=== PATIENT | male | born 1950 | race Caucasian/White ===

== ENCOUNTER 2019-10-26 07:52 | Outpatient (RCR) | payer MEDICARE, OTHER, SELFPAY ==
--- NOTE | 2019-08-24 09:42 | P.PNWOUND_ITS ---
Wound Care Note Date/Time: 08/24/19 09:42 History: [facility] wound clinic evaluations for left lateral ankle ulcer. Wound approximation: Yes Wound width: 0.8cm Wound length: 1.0cm Wound depth: 0.2cm Drainage: Scant serous Surrounding tissue appearance: No redness/warmth/swelling. No signs of active infection Tunneling: No Percentage granulation tissue: 100% red/pink wound bed Treatment/Procedures: Amnioexcel grafting Dressings: Amnioexcel graft applied. Tissue ID: [id number] Size: 1.5cmx1.5cm Product ID: [id number] Expiration Date: 05/05/2024 Xtrasorb placed. Covered dry. Assessment and Plan Assessment and plan (1) Skin ulcer of ankle, limited to breakdown of skin: Qualifiers: Laterality: left Qualified Code(s): L97.321 - Non-pressure chronic ulcer of left ankle limited to breakdown of skin Code(s): L97.301 - Non-pressure chronic ulcer of unspecified ankle limited to breakdown of skin Status: Acute Assessment and Plan: [facility] wound clinic evaluation for left lateral ankle ulcer. Ulcer with continued improvement in dimensions in granulation with Amnioexcel grafting and daily silver gel. Recommended repeat graft application today. Do not change dressing x72 hours. Then begin silver gel and cover dry. Pressure offloading with foam over wound in shoes. Follow up in 1 week for reassessment. Will begin tracy or Endoform at that time if wound is not closed.
--- NOTE | 2019-08-31 08:06 | PCWOUND ---
wocn note patient cancelled due to still out of town.
--- NOTE | 2019-09-07 09:30 | WPDWOUNDNOTE ---
Wound Care Note Date/Time: 09/07/19 09:30 [facility] wound clinic evaluations for left lateral ankle ulcer. Wound approximation: Yes Wound width: 0.6cm Wound length: 0.9 cm Wound depth: 0.2 cm Drainage: Scant serous Surrounding tissue appearance: No redness/warmth/swelling. No signs of active infection Tunneling: No Percentage granulation tissue: 100% red/pink wound bed Begin silver gel, tracy, foam, cover dry. Assessment and Plan Assessment and plan (1) Skin ulcer of ankle, limited to breakdown of skin: Qualifiers: Laterality: left Qualified Code(s): L97.321 - Non-pressure chronic ulcer of left ankle limited to breakdown of skin Code(s): L97.301 - Non-pressure chronic ulcer of unspecified ankle limited to breakdown of skin Status: Acute Assessment and Plan: [facility] wound clinic evaluation for left lateral ankle ulcer. Ulcer with continued improvement in dimensions and granulation with Amnioexcel grafting and daily silver gel. He has completed 05/20 grafts. Recommended beginning silver gel and tracy daily, cover with foam. Follow up in 2 weeks for reassessment. Exam Const Constitutional General: healthy appearing; No in distress or confused Orientation/consciousness: oriented to person, oriented to place, oriented to time and No confused HENNH Head: normal to inspection, normocephalic and atraumatic Eyes Conjunctivae: Yes conjunctivae normal Sclera: sclerae normal Neck Neck: Yes supple and No tender Resp Effort & Inspection: normal respiratory effort and no audible wheezes Cardio Rate: Yes regular rate Rhythm: regular rhythm Skin General skin exam: no rashes or lesions noted Neuro General: Yes oriented to person, Yes oriented to place, Yes oriented to time and No confusion Extrem Right upper extremity: normal to inspection Left upper extremity: normal to inspection Other: Left ankle ulcer clean/dry. No drainage. Dimensions today measures 0.9x0.6x0.2cm, 100% red/pink wound bed.. Good granulation tissue over 95% of wound bed. Minimal depth. No signs of infection. Psych Affect: Yes normal affect Review of Systems Const Reports no additional constitutional complaints Eyes Reports no additional eye complaints ENT Reports system reviewed and no additional complaints, except as documented Card Reports no additional cardiovascular complaints Resp Reports no additional respiratory complaints GI Reports no additional gastrointestinal complaints Reports no additional male genitourinary complaints Musc Reports no additional musculoskeletal complaints Skin/Breast Reports system reviewed and no additional complaints, except as docu Neuro Reports system reviewed and no additional complaints, except as documented Psych Reports no additional psychiatric complaints Endo Reports no additional endocrine complaints Calos/Lymph Reports no additional hematologic/lymphatic complaints Aller/Immun Reports no additional allergic/immunologic complaints
--- NOTE | 2019-09-28 09:07 | P.PNWOUND_ITS ---
Wound Care Note Date/Time: 09/28/19 09:07 [facility] wound clinic evaluations for left lateral ankle ulcer. Wound approximation: Yes Two small areas of open ulceration on the more proximal aspect of the wound which both measure 0.2x0.2x0.1cm, 100% red/pink wound bed. NEW blister on ankle which measures 0.6x0.6x0.2cm, 100% red/pink wound bed, no signs of infection. Drainage: Scant serous Surrounding tissue appearance: No redness/warmth/swelling. No signs of active infection Tunneling: No Percentage granulation tissue: 100% red/pink wound bed Begin silver gel, tracy, foam, cover dry. Assessment and Plan Assessment and plan (1) Skin ulcer of ankle, limited to breakdown of skin: Qualifiers: Laterality: left Qualified Code(s): L97.321 - Non-pressure chronic u lcer of left ankle limited to breakdown of skin Code(s): L97.301 - Non-pressure chronic ulcer of unspecified ankle limited to breakdown of skin Status: Acute Assessment and Plan: [facility] wound clinic evaluation for left lateral ankle ulcer. Ulcer with continued improvement in dimensions and granulation with daily silver gel and tracy. Plan to return to use of Regranex- refill requested. Follow up in 4 weeks for reassessment. Exam Const Constitutional General: healthy appearing; No in distress or confused Orientation/consciousness: oriented to person, oriented to place, oriented to time and No confused HENMD Head: normal to inspection, normocephalic and atraumatic Eyes Conjunctivae: Yes conjunctivae normal Sclera: sclerae normal Neck Neck: Yes supple and No tender Resp Effort & Inspection: normal respiratory effort and no audible wheezes Cardio Rate: Yes regular rate Rhythm: regular rhythm Skin General skin exam: no rashes or lesions noted Neuro General: Yes oriented to person, Yes oriented to place, Yes oriented to time and No confusion Extrem Right upper extremity: normal to inspection Left upper extremity: normal to inspection Other: Left ankle ulcer clean/dry. No drainage. Wound today with two small open ulcerations measuring 0.2x0.2x0.1cm, 100% red/pink wound bed. Good granulation tissue over 95% of wound bed. Minimal depth. No signs of infection. Psych Affect: Yes normal affect Review of Systems Const Reports no additional constitutional complaints Eyes Reports no additional eye complaints ENT Reports system reviewed and no additional complaints, except as documented Card Reports no additional cardiovascular complaints Resp Reports no additional respiratory complaints GI Reports no additional gastrointestinal complaints Reports no additional male genitourinary complaints Musc Reports no additional musculoskeletal complaints Skin/Breast Reports system reviewed and no additional complaints, except as docu Neuro Reports system reviewed and no additional complaints, except as documented Psych Reports no additional psychiatric complaints Endo Reports no additional endocrine complaints Calos/Lymph Reports no additional hematologic/lymphatic complaints Aller/Immun Reports no additional allergic/immunologic complaints
--- NOTE | 2019-10-26 10:02 | WPDWOUNDNOTE ---
Wound Care Note Date/Time: 10/26/19 10:02 [facility] wound clinic evaluations for left lateral ankle ulcer. Wound approximation: Yes Drainage: None Surrounding tissue appearance: No redness/warmth/swelling. No signs of active infection Tunneling: No Percentage granulation tissue: 100% healed patient returns for re-evaluation left lateral ankle ulcer. States wound has been closed for several days. Not putting anything on it. Denies any fever, chills or other complaints. Assessment and Plan Assessment and plan (1) Skin ulcer of ankle, limited to breakdown of skin: Qualifiers: Laterality: left Qualified Code(s): L97.321 - Non-pressure chronic ulcer of left ankle limited to breakdown of skin Code(s): L97.301 - Non-pressure chronic ulcer of unspecified ankle limited to breakdown of skin Status: Acute Assessment and Plan: Updated history, physical exam reviewed with the patient. Interval changes reviewed. Discussed the condition, nature, etiology and course of natural history with the patient. Treatment options including surgical and nonoperative treatment were reviewed. Risks and benefits of each as well as alternatives reviewed. The patient's questions were answered. Conservative treatment: compression and elevation. Wound healed at this time. Discussed risk of recurrence. Continue to monitor and work on edema with elevation and compression stockings. If new wound or recurrence notify office or wound clinic immediately. Patient verbalized understanding.
--- NOTE | 2019-10-26 10:14 | WPDWOUNDNOTE ---
Wound Care Note Date/Time: 10/26/19 10:14 Review of Systems Const Denies fever(s) Eyes Denies blurry vision ENT Denies bleeding gums or neck pain Card Denies chest pain Resp Denies wheezing GI Denies abdominal pain No urinary urgency Musc Reports as per HPI Skin Reports as per HPI Neuro Denies behavioral changes or numbness Psych Denies irritability or mood changes Endo Denies polyuria Calos/Lymph Denies easy bleeding Aller/Immun Denies seasonal allergies
== END 2019-11-12 12:30 | disposition home or self-care (01) ==
LOC: ANHWOC 07:52
PROVIDERS: Referring Provider Nurse Practitioner Family; Visit Provider Orthopaedic Surgery
DX: I87.8 Other specified disorders of veins (principal); L97.319 Non-pressure chronic ulcer of right ankle with unspecified severity; L97.329 Non-pressure chronic ulcer of left ankle with unspecified severity
CPT/HCPCS: 15275; 99212; G0463; Q4137

== ENCOUNTER 2020-09-23 00:44 | Outpatient (CLI) | payer MEDICARE, OTHER, SELFPAY ==
[2020-09-23 20:15] LABS: SARS-CoV-2 RNA PCR Negative
== END 2020-09-23 00:45 | disposition home or self-care (01) ==
LOC: ANHCOVIDDT 00:45
PROVIDERS: Visit Provider Internal Medicine Gastroenterology
DX: Z01.812 Encounter for preprocedural laboratory examination (principal); Z20.828 Contact with and (suspected) exposure to other viral communicable diseases
CPT/HCPCS: 87635; C9803; U0003

== ENCOUNTER 2020-09-27 00:18 | Day surgery (SDC) | payer MEDICARE, OTHER, SELFPAY ==
[2020-09-21 14:56] VITALS: BMI 31.4
[2020-09-27 06:47] VITALS: BP 118/57; PULSE 64; RESP 18; TEMP 36.5; O2SAT 98
[2020-09-27] MEDS: LACTATED RINGERS 1,000 ML 150 ML IV CONT (06:50)
--- NOTE | 2020-09-27 08:09 | WPDGICN ---
Assessment and Plan Assessment and plan (1) Encounter for screening colonoscopy: Code(s): Z12.11 - Encounter for screening for malignant neoplasm of colon Status: Acute Assessment and Plan: Patient presents today for screening colonoscopy. High-fiber diet is advised. Colonoscopy will be performed possibly further recommendations subsequently. GI Consult Note Consult date/time: 09/27/20 08:09 HPI: Lee Morris is a 70 year old male Presents for neoplasia screening. Patient has normal weight appetite bowel movements. He denies abdominal pain. He denies bleeding. His family history is noncontributory. Patient presents today for colonoscopy. Review of Systems Review of Systems: All systems reviewed & are unremarkable except as noted in HPI and below PMFSH Past Medical History Medical History (Updated 09/27/20 @ 08:11 by Vlad Mendes MD) H/O malignant neoplasm of thyroid Hyperlipidemia Hypertension Hypothyroid Skin ulcer of ankle, limited to breakdown of skin Social History Social History Smoking status: Never smoker Alcohol intake: current Substance use: never Substance use type: does not use Spiritual care concerns: No Meds Home Medications and Allergies Home Medications Medication Instructions Recorded Confirmed Type amlodipine 10 mg PO DAILY 08/06/19 09/21/20 History apixaban [Eliquis] 5 mg PO DAILY 08/06/19 09/27/20 History cholecalciferol (vitamin D3) 2,000 unit PO DAILY 08/06/19 09/21/20 History levothyroxine 137 mcg PO DAILY 08/06/19 09/21/20 History losartan 100 mg PO DAILY 08/06/19 09/21/20 History metoprolol succinate 50 mg PO DAILY 08/06/19 09/21/20 History pravastatin 40 mg PO DAILY 08/06/19 09/21/20 History spironolactone 50 mg PO DAILY 08/06/19 09/21/20 History ibktvpdo-qbi-befkg-vit K-lycop 1 tablet PO DAILY 09/21/20 09/21/20 History [One-A-Day Men's 50 Plus] Allergies Allergy/AdvReac Type Severity Reaction Status Date / Time diazepam Allergy Intermediate Itching Verified 09/27/20 06:45 propoxyphene Allergy Intermediate Swelling Verified 09/27/20 06:45 Vital Signs Vital Signs - 24 hr 09/27/20 06:47 Temperature 97.7 F Pulse Rate 64 Respiratory Rate 18 Blood Pressure 118/57 L Pulse Oximetry 98 Exam Narrative: Exam Narrative: Physical exam reveals patient to be alert. Vital signs stable. HEENT exam is unremarkable. Lungs are clear to auscultation and percussion. Heart is without murmur or extra sounds. Abdominal exam bowel sounds are present soft nontender with no organomegaly. Digital external rectal exam is normal.
[2020-09-27 08:37] VITALS: BP 102/68; PULSE 55; RESP 23; O2SAT 95
[2020-09-27 08:47] VITALS: BP 110/68; PULSE 52; RESP 18; O2SAT 95
[2020-09-27 08:57] VITALS: BP 124/75; PULSE 52; RESP 19; O2SAT 99
== END 2020-09-27 09:09 | disposition home or self-care (01) ==
PROVIDERS: Visit Provider Internal Medicine Gastroenterology
PROC: 0DJD8ZZ Inspection of Lower Intestinal Tract, Via Natural or Artificial Opening Endoscopic (ICD-10-PCS; CPT 45378; principal; 2020-09-27 08:00)
DX: Z12.11 Encounter for screening for malignant neoplasm of colon (principal); K57.30 Diverticulosis of large intestine without perforation or abscess without bleeding; K64.8 Other hemorrhoids; Z85.850 Personal history of malignant neoplasm of thyroid; E78.5 Hyperlipidemia, unspecified; I10 Essential (primary) hypertension; E89.0 Postprocedural hypothyroidism
CPT/HCPCS: G0121; J2704; J7120

== ENCOUNTER 2021-05-11 22:24 | Emergency (ER) | payer MEDICARE, OTHER, SELFPAY ==
--- NOTE | ~2021-05-11 | CT_ITS ---
EXAMINATION: CT pelvis wo con DATE: 05/11/2021 23:08 INDICATION: Acute onset left hip pain TECHNIQUE: Computed tomography (CT) of the pelvis was performed without intravenous contrast. The dos e-length product (DLP) was 441.75 mGy-cm. Automated exposure control and iterative reconstruction cindy hnique were employed. COMPARISON: None FINDINGS: There is mild osteoarthritis of the hips. No fracture is identified. There are bilateral L5 pars defects with grade 1 anterolisthesis of L5 on S1. Calcified atherosclerosis is noted. The appen sarah is normal. There is partial fusion of the sacroiliac joints. There is a 2.2 x 1.9 cm lytic lesion of the left iliac wing which extends into the adjacent soft tissues. IMPRESSION: 1. Mild osteoarthritis of the hips without acute findings. 2. Lytic lesion of the left iliac wing. CT-guided biopsy is recommended. Reviewed, dictated and finalized at location A.
[2021-05-11 22:38] VITALS: BP 108/67; PULSE 66; RESP 16; TEMP 36.6; O2SAT 96
--- NOTE | 2021-05-11 22:52 | ED.GENADULT ---
HPI - General Adult General Chief complaint: Unspecified Stated complaint: left hip pain Time Seen by Provider: 05/11/21 22:40 Source: patient Mode of arrival: ambulatory Limitations: no limitations History of Present Illness MD complaint: sudden left hip pain x this PM. no acute injury. prior similar left hip Onset (ago): hour(s) (6) Location: left and lower extremity Severity: moderate Severity scale (1-10): 8 Quality: aching and dull Pain Consistency: constant Relieving factors: immobilization and rest Exacerbating factors: movement Associated symptoms: denies other symptoms Treatments prior to arrival: none Related Data Home Medications Medication Instructions Recorded Confirmed calcium carbonate [Tums] 200 mg PO QID 05/11/21 05/11/21 chlorthalidone 25 mg PO DAILY 05/11/21 05/11/21 levothyroxine [Synthroid] 137 mcg PO DAILY 05/11/21 05/11/21 losartan 100 mg PO DAILY 05/11/21 05/11/21 metoprolol succinate 50 mg PO DAILY 05/11/21 05/11/21 pravastatin [Pravachol] 40 mg PO DAILY 05/11/21 05/11/21 spironolactone [Aldactone] 50 mg PO DAILY 05/11/21 05/11/21 Allergies Allergy/AdvReac Type Severity Reaction Status Date / Time No Known Allergies Allergy Verified 02/21/20 12:41 Review of Systems Review of Systems: All systems reviewed & are unremarkable except as noted in HPI and below Constitutional: Constitutional: Reports as per HPI and Reports no additional constitutional complaints Eyes: Eyes: Reports as per HPI and Reports no additional eye complaints ENT: Reports system reviewed and no additional complaints, except as documented and Reports as per HPI Cardiovascular: Cardiovascular: Reports as per HPI and Reports no additional cardiovascular complaints Respiratory: Respiratory: Reports as per HPI and Reports no additional respiratory complaints Gastrointestinal: Gastrointestinal: Reports as per HPI and Reports no additional gastrointestinal complaints Genitourinary: Genitourinary: Reports no additional male genitourinary complaints and Reports as per HPI Musculoskeletal: Musculoskeletal: Reports no additional musculoskeletal complaints, Reports as per HPI, Denies back pain and Reports arthralgias Integumentary/Breasts: Skin/Breast: Reports system reviewed and no additional complaints, except as docu and Reports as per HPI Neurologic: Reports system reviewed and no additional complaints, except as documented and Reports as per HPI Psychiatric: Psychiatric: Reports no additional psychiatric complaints and Reports as per HPI Endocrine: Endocrine: Reports no additional endocrine complaints and Reports as per HPI Hematologic/Lymphatic: Hematologic/Lymphatic: Reports no additional hematologic/lymphatic complaints and Reports as per HPI Allergic/Immunologic: Allergic/Immunologic: Reports no additional allergic/immunologic complaints and Reports as per HPI PMFSH Past Medical History Medical History Adhesive capsulitis Arthritis Back pain with history of spinal surgery DJD of shoulder DVT (deep venous thrombosis) Irregular heartbeat Left shoulder pain Lung nodule Vision abnormalities Surgical History Surgical History History of thyroidectomy Social History Social History Smoking status: Never smoker Alcohol intake: current Gender identity (if verbalized by the patient): Male Exam Const: General: cooperative, healthy appearing, no acute distress and well developed Nutritional Appearance: well nourished Orientation/consciousness: oriented to person, oriented to place, oriented to time and patient oriented x3 Limitations: no limitations HENMT: Head: normal to inspection, normocephalic and atraumatic Ears: hearing grossly normal bilaterally, external ears normal, TM normal on the right and TM normal on the left General nose
[2021-05-11] MEDS: KETOROLAC (*BKC) 60 MG/2 ML VIAL IM (23:00)
[2021-05-11] MEDS: MORPHINE SULFATE (*CRX) 4 MG/ML INJ IM (23:10)
[2021-05-11] MEDS: ONDANSETRON HCL ODT 4 MG TABLET PO (23:15)
[2021-05-11 23:51] VITALS: BP 110/70; PULSE 70; RESP 18; TEMP 36.6; O2SAT 95
== END 2021-05-12 00:08 | disposition home or self-care (01) ==
PROVIDERS: Emergency Provider Emergency Medicine
DX: M25.552 Pain in left hip (principal)
CPT/HCPCS: 72192; 96372; 99283; 99284; A9270; J1885; J2270

== ENCOUNTER 2021-06-26 10:25 | Inpatient (IN) | payer MEDICARE, OTHER, SELFPAY ==
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
--- NOTE | ~2021-06-26 | XR_ITS ---
EXAMINATION: XR ankle LT min 3V, XR foot LT min 3V DATE: 06/26/2021 11:32 INDICATION: EXAMINATION: XR ankle LT min 3V, XR foot LT min 3V DATE: 06/26/2021 11:32 INDICATION: Infection at the left foot and ankle TECHNIQUE: 1. Anteroposterior, mortise, additional oblique and lateral view of the left ankle were obtained. 2. Dorsoplantar, two oblique and lateral views of the left foot were obtained. COMPARISON: None. FINDINGS: Numerous small foci of metallic shrapnel scattered throughout the soft tissues of the left foot, ankl e and distal lower leg. Old healed distal left fibular diaphyseal fracture in essentially anatomic al ignment. No acute fractures identified. Normal alignment at the left foot and ankle. Moderate polyart icular osteoarthritis at the left ankle and multiple joints throughout the left foot most prominent i n the midfoot. No lesion suspicious for osteomyelitis identified. Small enthesopathic ossicle at the distal Achilles tendon. No left ankle joint effusion. IMPRESSION: 1. 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 No acute oss eous abnormality. 2. Numerous scattered foci of metallic shrapnel throughout the left foot, ankle and distal lower leg. Correlate with clinical history. Reviewed, dictated and finalized at location A. IMPRESSION: 1. Moderate midfoot predominant polyarticular osteoarthritis at the left foot a nd ankle. No acute osseous abnormality. 2. Numerous scattered foci of metallic shrapnel throughout the left foot, ankle and distal lower leg. Correlate with clinical history.
--- NOTE | ~2021-06-26 | US_ITS ---
EXAMINATION: US arterial ankle brachial ind DATE: 06/26/2021 12:36 INDICATION: Arterial occlusive disease to the bilateral lower limbs TECHNIQUE: Segmental pressures and plethysmographic and Doppler waveforms of the brachial and lower e xtremity arteries were obtained. COMPARISON: None. FINDINGS: Right and left brachial artery pressures of 112 mm Hg and 111 mm Hg, respectively, are concordant (no rmal difference <= 30 mmHg). The right ankle-brachial index (GREGG) is 1.57 (normal >= 0.9-1.0). The right great toe-brachial index (TBI) is 1.74 (normal >= 0.65). Arterial Doppler waveforms are triphasic at the right posterior tibia l and biphasic at the right dorsalis pedis artery, both with brisk systolic upstrokes.. The left GREGG is 1.38. The left TBI is 0.98. Arterial Doppler waveforms are biphasic with brisk systol ic upstrokes at both the left posterior tibial and dorsalis pedis arteries. IMPRESSION: 1. No significant arterial occlusive disease with normal bilateral ABIs and TBIs. Reviewed, dictated and finalized at location A. IMPRESSION: 1. No significant arterial occlusive disease with normal bilateral ABIs and TBI s.
[2021-06-26 09:20] VITALS: BP 108/71; PULSE 56; RESP 16; TEMP 36.1; O2SAT 99
--- NOTE | 2021-06-26 09:52 | PC.NURSE ---
This patient, Lee Morris, was admitted to 3 [facility] Surg Room 319-01 on 06/27/21 @ 0920. Patient/family oriented to hospital policies and general routines including ID bracelet, bed and alarms, visiting hours, pain management, procedures, bathroom and other care routines, personal items, smoking policy, room service/diet, and visiting hours. Information on how to activate the Rapid Response Team has been discussed. Patient/Family are encouraged to report perceived risks to care and to ask questions if they do not understand what they are told or what they should do.
--- NOTE | 2021-06-26 11:01 | PM.CNOR ---
Assessment and Plan Assessment and plan (1) Neuropathic ulcer of ankle: Code(s): L97.309 - Non-pressure chronic ulcer of unspecified ankle with unspecified severity Status: Acute Assessment and Plan: Patient admitted to the floor from the outpatient wound clinic. Plan to start intravenous antibiotics. Orders for dressing changes given. Will need workup including radiographic studies and blood work. Treatment recommendations to follow based on the results. 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 Had been treated with chemotherapy previously. 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 History of Present Illness HPI Consult date: 06/26/21 Requesting physician: Corrine Dennison MD Consult reason: other Chief complaint: Infected Lt ankle ulcer Narrative: 71-year-old gentleman with direct admit from the [facility] outpatient wound clinic for infected left ankle ulcer. Patient previously known to the Orthopedic service and the wound clinic for same left ankle ulceration. Treated at that time with debridement and graft application. He did well. Two weeks ago noted opening of the wound. He was seen in the Wound Care started on dressing changes. This has become worse over the past 4 days. Now with increasing size, slough covering the wound and increased swelling and pain. Patient unable to bear weight on the heel. Pain around the hindfoot worse with movement or pressure. Review of Systems Constitutional: Constitutional: Reports as per HPI and Reports no additional constitutional complaints Eyes: Eyes: Reports as per HPI and Reports no additional eye complaints ENT: Reports system reviewed and no additional complaints, except as documented and Reports as per HPI Cardiovascular: Cardiovascular: Reports as per HPI and Reports no additional cardiovascular complaints Respiratory: Respiratory: Reports as per HPI and Reports no additional respiratory complaints Gastrointestinal: Gastrointestinal: Reports as per HPI and Reports no additional gastrointestinal complaints Genitourinary: Genitourinary: Reports no additional male genitourinary complaints and Reports as per HPI Musculoskeletal: Musculoskeletal: Reports no additional musculoskeletal complaints, Reports as per HPI, Denies back pain and Reports arthralgias Integumentary/Breasts: Skin/Breast: Reports system reviewed and no additional complaints, except as docu and Reports as per HPI Neurologic: Reports system reviewed and no additional complaints, except as documented and Reports as per HPI Psychiatric: Psychiatric: Reports no additional psychiatric complaints and Reports as per HPI Endocrine: Endocrine: Reports no additional endocrine complaints and Reports as per HPI Hematologic/Lymphatic: Hematologic/Lymphatic: Reports no additional hematologic/lymphatic complaints and Reports as per HPI Allergic/Immunologic: Allergic/Immunologic: Reports no additional allergic/immunologic complaints and Reports as per HPI PMFSH Past Medical History Medical History Adhesive capsulitis Arthritis Back pain with history of spinal surgery 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
--- NOTE | 2021-06-26 11:04 | ECG_ITS ---
Measurements Intervals [place] Rate: 55 P: 73 WI: 260 QRS: -5 QRSD: 97 T: -8 QT: 410 QTc: 395 Interpretive Statements SINUS BRADYCARDIA WITH FIRST DEGREE AV BLOCK NONSPECIFIC ST & T-WAVE ABNORMALITY- ANTERIOR LEADS BASELINE ARTIFACT- II, III, AVR, AVL, AVF ABNORMAL ECG Electronically Signed On 06-26-2021 11:38:10 CDT by Nate Lambert D.O.
[2021-06-26 11:35] LABS: Basophils Percent Auto 0.2 % (0.2-1.2); Eosinophils Absolute Auto 0.1 K/mm3 (0-0.3); Eosinophils Percent Auto 1.1 % (0-4.4); Hematocrit 33.9 % (42.0-52.0); Hemoglobin 10.9 g/dL (14.0-18.0); Immature Granulocyte Absolute 0.02 K/mm3 (0.00-0.031); Immature Granulocyte Percent A 0.4 % (0-0.5); Lymphocytes Absolute Auto 0.86 K/mm3 (0.9-3.2); Lymphocytes Percent Auto 15.7 % (18.3-44.2); Mean Corpuscular HGB Conc 32.2 g/dl (32-36); Mean Corpuscular Hemoglobin 31.7 pg (26-34); Mean Corpuscular Volume 98.5 fl (80-100); Mean Platelet Volume 9.5 fl (7.4-10.4); Monocytes Absolute Auto 0.4 K/mm3 (0.1-0.6); Monocytes Percent Auto 7.7 % (2.6-8.5); Neutrophils Absolute Auto 4.1 K/mm3 (1.3-6.7); Neutrophils Percent Auto 74.9 % (45.5-73.1); Platelet Count Result 206 k/mm3 (150-375); Red Blood Count 3.44 M/mm3 (4.6-6.20); Red Cell Distribution Width 17.5 % (11.5-14.5); White Blood Count 5.5 K/mm3 (4.5-10.0)
[2021-06-26 11:52] LABS: Alanine Aminotransferase 30 U/L (4-50); Albumin Level 4.1 g/dL (3.5-5.1); Alkaline Phosphatase 105 U/L (38-126); Anion Gap 9 mmol/L (8-16); Aspartate Amino Transferase 38 U/L (17-59); Bilirubin,Total 1.2 mg/dL (0.2-1.3); Blood Urea Nitrogen 24 mg/dL (9-20); CRP 5.4 mg/dL (<1.0); Calcium 8.4 mg/dL (8.4-10.2); Carbon Dioxide 28 mmol/L (22-30); Chloride 100 mmol/L (98-107); Estimated Glomerular Filt Rate 50; Glucose 121 mg/dL (65-110); Potassium 4.2 mmol/L (3.4-5.0); Sodium 137 mmol/L (137-145)
[2021-06-26 13:28] LABS: Erythrocyte Sedimentation Rate 71 mm/hr (0-20)
[2021-06-26 14:00] VITALS: BP 130/71; PULSE 58; RESP 16; TEMP 36.1; O2SAT 100
[2021-06-26 14:34] VITALS: BP 130/71; PULSE 58; O2SAT 100
--- NOTE | 2021-06-26 16:06 | PM.IMHP ---
H&P: HPI History of Present Illness Date/Time: 06/26/21 16:06 patient is 69-year-old male was seen by orthopedic surgeon in outpatient clinic with left ankle ulceration and patient had been treated with debridement and graft application however the wound was open and suggested patient will need surgical intervention, for this reason patient is admitted. patient will be seen by his orthopedic surgeon in the hospital and further recommendation to follow. 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 Vision abnormalities Surgical History Surgical History History of thyroidectomy Family History Family History (Updated 06/26/21 @ 11:48 by Keri Keys RN) Mother Diabetes mellitus Brain aneurysm Father Heart disease Social History Social History Smoking status: Never smoker Alcohol intake: never Substance use: never Substance use type: does not use Gender identity (if verbalized by the patient): Male Spiritual care concerns: No Meds Home Medications and Allergies Home Medications Medication Instructions Recorded Confirmed Type chlorthalidone 25 mg PO DAILY 05/11/21 06/26/21 History levothyroxine [Synthroid] 137 mcg PO DAILY 05/11/21 06/26/21 History losartan 100 mg PO DAILY 05/11/21 06/26/21 History metoprolol succinate 50 mg PO DAILY 05/11/21 06/26/21 History pravastatin [Pravachol] 40 mg PO DAILY 05/11/21 06/26/21 History apixaban [Eliquis] 10 mg PO DAILY 06/26/21 06/26/21 History cabozantinib 40 mg PO DAILY 06/26/21 06/26/21 History cholecalciferol (vitamin D3) 25 mcg PO DAILY 06/26/21 06/26/21 History [Vitamin D3] zwkxudlb-fzz-jmxth-vit K-lycop 1 tablet PO DAILY 06/26/21 06/26/21 History [One-A-Day Men's Multivitamin] Allergies Allergy/AdvReac Type Severity Reaction Status Date / Time No Known Allergies Allergy Verified 06/26/21 10:08 Vital Signs Vital Signs - 24 hr 06/26/21 09:20 06/26/21 14:00 06/26/21 14:34 Temperature 97.0 F L 97.0 F L Pulse Rate 56 L 58 L 58 L Respiratory Rate 16 16 Blood Pressure 108/71 130/71 130/71 Pulse Oximetry 99 100 100 Exam Narrative: Patient is comfortable, NAD HEENT: eyes are clear and none icteric LUNGS: normal respiratory effort ABD: not distended Lower extremities: no edema, left ankle lateral aspect with wound dressed SKIN: nonjaundiced Neuro: grossly intact. H&P: Results Labs Labs: Short CBC 06/26/21 Range/Units 11:11 WBC 5.5 (4.5-10.0) K/mm3 Hgb 10.9 L (14.0-18.0) g/dL Hct 33.9 L (42.0-52.0) % Plt Count 206 (150-375) k/mm3 BMP 06/26/21 11:20 Sodium 137 Potassium 4.2 Chloride 100 Carbon Dioxide 28 BUN 24 H Creatinine 1.40 H Glucose 121 H Calcium 8.4 Liver Function 06/26/21 Range/Units 11:20 Total Bilirubin 1.2 (0.2-1.3) mg/dL AST 38 (17-59) U/L ALT 30 (4-50) U/L Alkaline Phosphatase 105 (38-126) U/L Albumin 4.1 (3.5-5.1) g/dL Assessment and Plan Assessment and plan (1) Neuropathic ulcer of ankle: Code(s): L97.309 - Non-pressure chronic ulcer of unspecified ankle with unspecified severity Status: Acute Assessment and Plan: 06/26/21 16:06 patient is 69-year-old male was seen by orthopedic surgeon in outpatient clinic with left ankle ulceration and patient had been treated with debridement and graft application yenifer
[2021-06-26 17:18] VITALS: BMI 29.6
[2021-06-26] MEDS: HYDROcodone/acetaminophen (*CRX) 7.5-325 MG TABLET 1 TAB PO (18:00)
[2021-06-26 22:00] VITALS: BP 123/68; PULSE 63; RESP 16; TEMP 37; O2SAT 97
[2021-06-27] MEDS: HYDROcodone/acetaminophen (*CRX) 7.5-325 MG TABLET 1 TAB PO ×2 (02:50→22:07)
[2021-06-27 05:40] VITALS: BP 113/63; PULSE 60; RESP 16; TEMP 36.6; O2SAT 98
[2021-06-27] MEDS: LEVOTHYROXINE SODIUM 25 MCG TABLET PO (05:40)
[2021-06-27] MEDS: LEVOTHYROXINE SODIUM 112 MCG TABLET PO (05:50)
[2021-06-27] MEDS: LOSARTAN POTASSIUM 100 MG TABLET PO (08:49)
[2021-06-27] MEDS: THERAPEUTIC MULTIVITAMINS/MINERALS TAB (*BKC) 1 TABLET PO (08:49)
[2021-06-27] MEDS: CHOLECALCIFEROL 1,000 UNITS TABLET 1000 UNITS PO (08:49)
[2021-06-27] MEDS: CHLORTHALIDONE 25 MG TABLET PO (08:49)
[2021-06-27 08:50] VITALS: PULSE 66
[2021-06-27] MEDS: PRAVASTATIN SODIUM 20 MG TABLET 40 MG PO (08:50)
[2021-06-27] MEDS: METOPROLOL SUCCINATE EXT REL 50 MG TABCR PO (08:50)
--- NOTE | 2021-06-27 12:42 | PM.PNORT ---
Progress Note: A&P Assessment and Plan (1) Neuropathic ulcer of ankle: Code(s): L97.309 - Non-pressure chronic ulcer of unspecified ankle with unspecified severity Status: Acute Assessment and Plan: CT scan results reviewed. Ulceration with some mild surrounding swelling. No abscess or appearance of ankle or subtalar joint involvement. Culture from yesterday shows g positive cocci. Identification pending. Infectious Disease consultation. Pain control with IV ibuprofen, Riple[place], Dilaudid for breakthrough. Consider surgical debridement for failure to improve, however, wound slightly improved with Santyl. (2) Peripheral arterial disease: Code(s): I73.9 - Peripheral vascular disease, unspecified Status: Acute Subjective Subjective Date/Time Seen: 06/27/21 12:42 Alert and oriented. Still complains of severe pain posterior ankle and heel along the Achilles tendon. CT scan results reviewed with the patient. Review of Systems Constitutional: Constitutional: Reports as per HPI and Reports no additional constitutional complaints Eyes: Eyes: Reports as per HPI and Reports no additional eye complaints ENT: Reports system reviewed and no additional complaints, except as documented and Reports as per HPI Cardiovascular: Cardiovascular: Reports as per HPI and Reports no additional cardiovascular complaints Respiratory: Respiratory: Reports as per HPI and Reports no additional respiratory complaints Gastrointestinal: Gastrointestinal: Reports as per HPI and Reports no additional gastrointestinal complaints Genitourinary: Genitourinary: Reports no additional male genitourinary complaints and Reports as per HPI Musculoskeletal: Musculoskeletal: Reports no additional musculoskeletal complaints, Reports as per HPI, Denies back pain and Reports arthralgias Integumentary/Breasts: Skin/Breast: Reports system reviewed and no additional complaints, except as docu and Reports as per HPI Neurologic: Reports system reviewed and no additional complaints, except as documented and Reports as per HPI Psychiatric: Psychiatric: Reports no additional psychiatric complaints and Reports as per HPI Endocrine: Endocrine: Reports no additional endocrine complaints and Reports as per HPI Hematologic/Lymphatic: Hematologic/Lymphatic: Reports no additional hematologic/lymphatic complaints and Reports as per HPI Allergic/Immunologic: Allergic/Immunologic: Reports no additional allergic/immunologic complaints and Reports as per HPI Exam Const: General: healthy appearing; No in distress or confusion Orientation/consciousness: oriented to person, oriented to place, oriented to time and No confusion HENMT: Head: normal to inspection, normocephalic and atraumatic Eyes: Conjunctivae: conjunctivae normal Sclera: sclerae normal Neck: Neck: supple and nontender Resp: Effort & Inspection: normal respiratory effort and no audible wheezes Cardio: Rhythm: regular rhythm Skin: General skin exam: no rashes or lesions noted Neuro: General: oriented to person, oriented to place, oriented to time and No confusion Extrem: Right upper extremity: normal to inspection Left upper extremity: normal to inspection Right lower extremity: ankle Details: normal to inspection, abnormal ROM Details: with range as follows (ankle dorsiflexion -10 degrees, plantar flexion 40?, inversion 15?, eversion 15?) and other ( good stability all directions); no tenderness, no swelling and no ecchymosis and foot Details: abnormal to inspection, abnormal ROM of toe ( hallux MTP dorsiflexion 40, plantar flexion 20?), vascular exam Details: dorsalis pedis pulse present and normal capillary refill, tendon exam Details: active flexion abnormal and active extension abnormal, motor-sensory exam Details: two point discrimination abnormal Location: in all toes and light-touch abnormal Location: in all toes and other (Hallux metatarsophalangeal motion 20? dorsiflexion/10? plan
[2021-06-27 14:00] VITALS: BP 116/72; PULSE 57; RESP 20; TEMP 36.3; O2SAT 99
[2021-06-27] MEDS: IBUPROFEN IV 400 MG in SODIUM CHLORIDE 0.9% IV 100 ML 200 MG IVPB (14:50)
--- NOTE | 2021-06-27 14:58 | PHAR ---
Home Medication - unable to verify tablet contents as they contain no identifying markings: Cabozantinib 20mg or Placebo tablets Take 2 tablets (40mg) by mouth daily. Take on an empty stomach. No food for 2hr before or 1hr after each dose. Avoid Wilner's Wort, Grapefruit products, and [place] oranges while on treatment. Do not take a missed dose within 12hr or a missed dose INVESTIGATIONAL USE MEDICATION Order #[id number] [facility]: [id number]
[2021-06-27] MEDS: COLLAGENASE OINT 30 GM TUBE 1 APPLIC TOPICAL (15:49)
--- NOTE | 2021-06-27 17:50 | PM.IMPN ---
Progress Note: A&P Assessment and Plan (1) Neuropathic ulcer of ankle: Code(s): L97.309 - Non-pressure chronic ulcer of unspecified ankle with unspecified severity Status: Acute Assessment and Plan: 06/27/21 17:50 06/26 patient is 69-year-old male was seen by orthopedic surgeon in outpatient clinic with left ankle ulceration and patient had been treated with debridement and graft application however the wound was open and suggested patient will need surgical intervention, for this reason patient is admitted. patient will be seen by his orthopedic surgeon in the hospital and further recommendation to follow. 06/27 today patient seen his orthopedic surgeon plan was take the patient to OR for surgical debridement however there is slight improvement with Santyl dressing, wound culture is growing Gram-positive cocci and Gram-negative bacilli will follow on identification and sensitivity, patient is being treated Cefepime and vancomycin will follow-up on wound culture and further recommendation to follow. 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: Qualifiers: Affected thrombotic vein of extremity: unspecified lower extremity distal vein Chronicity: chronic Qualified Code(s): I82.5Z1 - Chronic embolism and thrombosis of unspecified deep veins of right distal lower extremity Code(s): I82.401 - Acute embolism and thrombosis of unspecified deep veins of right lower extremity Status: Acute Assessment and Plan: patient is on Eliquis patient may have a surgery will discuss orthopedic surgeon to hold the medication or not (3) Lung nodule: Code(s): R91.1 - Solitary pulmonary nodule Status: Acute Assessment and Plan: patient remains clinically stable Subjective Date/time seen: 06/27/21 17:50 06/26 patient is 69-year-old male was seen by orthopedic surgeon in outpatient clinic with left ankle ulceration and patient had been treated with debridement and graft application however the wound was open and suggested patient will need surgical intervention, for this reason patient is admitted. patient will be seen by his orthopedic surgeon in the hospital and further recommendation to follow. 06/27 today patient seen his orthopedic surgeon plan was take the patient to OR for surgical debridement however there is slight improvement with Santyl dressing, wound culture is growing Gram-positive cocci and Gram-negative bacilli will follow on identification and sensitivity, patient is being treated Cefepime and vancomycin will follow-up on wound culture and further recommendation to follow. Review of Systems Review of Systems: All systems reviewed & are unremarkable except as noted in HPI and below Exam Narrative: Patient is comfortable, NAD HEENT: eyes are clear and none icteric LUNGS: normal respiratory effort ABD: not distended Lower extremities: no edema, left ankle lateral aspect with wound dressed SKIN: nonjaundiced Neuro: grossly intact. Objective Data Vital Signs Vital Signs: Vital Signs - 24 hr 06/26/21 22:00 06/27/21 05:40 06/27/21 08:50 Temperature 98.6 F 97.8 F Pulse Rate 63 60 66 Respiratory Rate 16 16 Blood Pressure 123/68 113/63 Pulse Oximetry 97 98 06/27/21 14:00 Temperature 97.3 F L Pulse Rate 57 L Respiratory Rate 20 Blood Pressure 116/72 Pulse Oximetry 99 Intake/Output Intake/Output: Intake & Output 06/24/21 06/25/21 06/26/21 06/27/21 23:59 23:59 23:59 23:59 Intake Total 1080 1164 Output Total 400 400 Balance 680 764 Meds/Results Medications: Active Medications Generic Name Dose Route Start Last Admin Trade Name Freq PRN Reason Stop Dose Admin Hydrocodone Bitart/Acetaminophen 1 tab 06/26/21 16:40 06/27/21 02:50 Hydrocodone/Acetaminophen (*Crx) 7.5-325 Mg Tablet PO 1 tab Q4H PRN Administration Pain Rated 7-10 Apixaban 10 mg 06/27/21 09:00 Apixaban 5 Mg Tablet PO DAILY DES Chamberlain
[2021-06-27 22:00] VITALS: BP 116/60; PULSE 62; RESP 16; TEMP 37; O2SAT 98
[2021-06-28] MEDS: HYDROcodone/acetaminophen (*CRX) 7.5-325 MG TABLET 1 TAB PO ×3 (03:02→18:59)
[2021-06-28] MEDS: LEVOTHYROXINE SODIUM 25 MCG TABLET PO (05:41)
[2021-06-28] MEDS: LEVOTHYROXINE SODIUM 112 MCG TABLET PO (05:43)
[2021-06-28 06:00] VITALS: BP 101/62; PULSE 60; RESP 18; TEMP 36.8; O2SAT 97
[2021-06-28 06:57] LABS: Basophils Percent Auto 0.5 % (0.2-1.2); Eosinophils Absolute Auto 0.2 K/mm3 (0-0.3); Eosinophils Percent Auto 4.8 % (0-4.4); Hematocrit 30.9 % (42.0-52.0); Immature Granulocyte Absolute 0.02 K/mm3 (0.00-0.031); Immature Granulocyte Percent A 0.5 % (0-0.5); Lymphocytes Absolute Auto 1.17 K/mm3 (0.9-3.2); Lymphocytes Percent Auto 26.5 % (18.3-44.2); Mean Corpuscular HGB Conc 32.4 g/dl (32-36); Mean Corpuscular Hemoglobin 31.8 pg (26-34); Mean Corpuscular Volume 98.4 fl (80-100); Mean Platelet Volume 9.6 fl (7.4-10.4); Monocytes Absolute Auto 0.4 K/mm3 (0.1-0.6); Neutrophils Absolute Auto 2.6 K/mm3 (1.3-6.7); Neutrophils Percent Auto 58.7 % (45.5-73.1); Platelet Count Result 212 k/mm3 (150-375); Red Blood Count 3.14 M/mm3 (4.6-6.20); Red Cell Distribution Width 16.9 % (11.5-14.5); White Blood Count 4.4 K/mm3 (4.5-10.0)
[2021-06-28 07:18] LABS: Anion Gap 8 mmol/L (8-16); Blood Urea Nitrogen 20 mg/dL (9-20); CRP 6.4 mg/dL (<1.0); Calcium 7.9 mg/dL (8.4-10.2); Carbon Dioxide 29 mmol/L (22-30); Chloride 98 mmol/L (98-107); Estimated CRCL calculation 50 ml/min; Estimated Glomerular Filt Rate 54; Glucose 111 mg/dL (65-110); Potassium 3.8 mmol/L (3.4-5.0); Sodium 135 mmol/L (137-145)
[2021-06-28] MEDS: LOSARTAN POTASSIUM 100 MG TABLET PO (08:13)
[2021-06-28] MEDS: CHLORTHALIDONE 25 MG TABLET PO (08:13)
[2021-06-28] MEDS: THERAPEUTIC MULTIVITAMINS/MINERALS TAB (*BKC) 1 TABLET PO (08:13)
[2021-06-28 08:14] VITALS: PULSE 70
[2021-06-28] MEDS: METOPROLOL SUCCINATE EXT REL 50 MG TABCR PO (08:14)
[2021-06-28] MEDS: PRAVASTATIN SODIUM 20 MG TABLET 40 MG PO (08:14)
[2021-06-28] MEDS: CHOLECALCIFEROL 1,000 UNITS TABLET 1000 UNITS PO (08:14)
--- NOTE | 2021-06-28 08:14 | PM.PNORT ---
Progress Note: A&P Assessment and Plan (1) Neuropathic ulcer of ankle: Code(s): L97.309 - Non-pressure chronic ulcer of unspecified ankle with unspecified severity Status: Acute Assessment and Plan: wound culture with Gram positive cocci and Gram-negative bacilli. Awaiting identification. Continue intravenous antibiotics. Infectious Disease consultation. Pain control with IV ibuprofen, [place], Dilaudid for breakthrough. Unable to tolerate fracture boot. Will use postoperative shoe. Wound improvement with Santyl. No plans for surgical debridement at this time. (2) Peripheral arterial disease: Code(s): I73.9 - Peripheral vascular disease, unspecified Status: Acute Subjective Subjective Date/Time Seen: 06/28/21 08:14 Principal diagnosis: Left neuropathic ankle ulcer, left leg cellulitis Interval history: pain overall slightly improved. Controlled with [place]. Unable to tolerate fracture boot due to ankle position. Review of Systems Constitutional: Constitutional: Reports as per HPI and Reports no additional constitutional complaints Eyes: Eyes: Reports as per HPI and Reports no additional eye complaints ENT: Reports system reviewed and no additional complaints, except as documented and Reports as per HPI Cardiovascular: Cardiovascular: Reports as per HPI and Reports no additional cardiovascular complaints Respiratory: Respiratory: Reports as per HPI and Reports no additional respiratory complaints Gastrointestinal: Gastrointestinal: Reports as per HPI and Reports no additional gastrointestinal complaints Genitourinary: Genitourinary: Reports no additional male genitourinary complaints and Reports as per HPI Musculoskeletal: Musculoskeletal: Reports no additional musculoskeletal complaints, Reports as per HPI, Denies back pain, Reports arthralgias and Reports numbness ( Left foot) Integumentary/Breasts: Skin/Breast: Reports system reviewed and no additional complaints, except as docu and Reports as per HPI Neurologic: Reports system reviewed and no additional complaints, except as documented, Reports as per HPI and Reports numbness ( decreased sensation both feet) Psychiatric: Psychiatric: Reports no additional psychiatric complaints and Reports as per HPI Endocrine: Endocrine: Reports no additional endocrine complaints and Reports as per HPI Hematologic/Lymphatic: Hematologic/Lymphatic: Reports no additional hematologic/lymphatic complaints and Reports as per HPI Allergic/Immunologic: Allergic/Immunologic: Reports no additional allergic/immunologic complaints and Reports as per HPI Exam Const: General: healthy appearing; No in distress or confusion Orientation/consciousness: oriented to person, oriented to place, oriented to time and No confusion HENMT: Head: normal to inspection, normocephalic and atraumatic Eyes: Conjunctivae: conjunctivae normal Sclera: sclerae normal Neck: Neck: supple and nontender Resp: Effort & Inspection: normal respiratory effort and no audible wheezes Cardio: Rhythm: regular rhythm Skin: General skin exam: no rashes or lesions noted Neuro: General: oriented to person, oriented to place, oriented to time and No confusion Extrem: Right upper extremity: normal to inspection Left upper extremity: normal to inspection Right lower extremity: ankle Details: normal to inspection, abnormal ROM Details: with range as follows (ankle dorsiflexion -10 degrees, plantar flexion 40?, inversion 15?, eversion 15?) and other ( good stability all directions); no tenderness, no swelling and no ecchymosis and foot Details: abnormal to inspection, abnormal ROM of toe ( hallux MTP dorsiflexion 40, plantar flexion 20?), vascular exam Details: dorsalis pedis pulse present and normal capillary refill, tendon exam Details: active flexion abnormal and active extension abnormal, motor-sensory exam Details: two point discrimination abnormal Location: in all toes and light-touch ab
[2021-06-28] MEDS: COLLAGENASE OINT 30 GM TUBE 1 APPLIC TOPICAL (11:47)
--- NOTE | 2021-06-28 13:23 | WPDINFPN2 ---
Progress Note: A&P Assessment and Plan (1) Neuropathic ulcer of ankle: Code(s): L97.309 - Non-pressure chronic ulcer of unspecified ankle with unspecified severity Status: Acute Assessment and Plan: 1. Ankle ulcer L foot, with superficial infection. The acute recurrence in the ulcer may well represent exacerbation of chronic osteomyelitis (see #2) 2. Presumed acute osteomyelitis same foot, no biopsy, treated by an ID colleague in [facility] over a year ago: 6 weeks IV rx. REC Oral ciprofloxacin + clinda x 4 weeks. Clinical and Xray f/u over time. If chronic osteomyelitis suspected with such followup, then needs bone resection. Call if Qs Subjective Date/time seen: 06/28/21 13:23 Objective Data Vital Signs Vital Signs: Vital Signs - 24 hr 06/27/21 14:00 06/27/21 22:00 06/28/21 06:00 Temperature 36.3 C L 37.0 C 36.8 C Pulse Rate 57 L 62 60 Respiratory Rate 20 16 18 Blood Pressure 116/72 116/60 101/62 Pulse Oximetry 99 98 97 06/28/21 08:14 Temperature Pulse Rate 70 Respiratory Rate Blood Pressure Pulse Oximetry Intake/Output Intake/Output: Intake & Output 06/25/21 06/26/21 06/27/21 06/28/21 23:59 23:59 23:59 23:59 Intake Total 1080 2634 510 Output Total 400 700 475 Balance 680 1934 35 Meds/Results Medications: Active Medications Generic Name Dose Route Start Last Admin Trade Name Freq PRN Reason Stop Dose Admin Hydrocodone Bitart/Acetaminophen 1 tab 06/26/21 16:40 06/28/21 03:02 Hydrocodone/Acetaminophen (*Crx) 7.5-325 Mg Tablet PO 1 tab Q4H PRN Administration Pain Rated 7-10 Apixaban 10 mg 06/27/21 09:00 Apixaban 5 Mg Tablet PO DAILY DES Chlorthalidone 25 mg 06/27/21 09:00 06/28/21 08:13 Chlorthalidone 25 Mg Tablet PO 25 mg DAILY DES Administration Collagenase 1 applic 06/27/21 09:00 06/28/21 11:47 Collagenase Oint 30 Gm Tube TOPICAL 1 applic QAM DES Administration Hydromorphone HCl 0.5 mg 06/27/21 12:40 Hydromorphone Hcl Inj (*Crx) 1 Mg/Ml Syr IV PUSH Q3H PRN Breakthrough Pain Piperacillin/Tazobactam/Dextrose 3.375 gm in 50 mls @ 100 mls/hr 06/27/21 00:00 06/28/21 12:25 Zosyn 3.375 Gm/D5w 50ml Pm IVPB Infused Q6H DES Infusion Ibuprofen 400 mg/ Sodium 104 mls @ 200 mls/hr 06/26/21 16:40 06/27/21 15:58 Chloride IVPB Infused Q6H PRN Infusion Pain Rated 4-6 Vancomycin HCl 1,500 mg in 500 mls @ 333.333 mls/hr 06/26/21 19:00 06/27/21 19:57 Vancomycin 1,500 Mg/D5w 500 Ml IVPB Infused Q24H DES Infusion Levothyroxine Sodium 25 mcg 06/27/21 06:30 06/28/21 05:41 Levothyroxine Sodium 25 Mcg Tablet PO 25 mcg DAILY@0630 DES Administration Levothyroxine Sodium 112 mcg 06/27/21 06:30 06/28/21 05:43 Levothyroxine Sodium 112 Mcg Tablet PO 112 mcg DAILY@0630 DES Administration Losartan Potassium 100 mg 06/27/21 09:00 06/28/21 08:13 Losartan Potassium 100 Mg Tablet PO 100 mg DAILY DES Administration Metoprolol Succinate 50 mg 06/27/21 09:00 06/28/21 08:14 Metoprolol Succinate Ext Rel 50 Mg Tabcr PO 50 mg DAILY DES Administration Multivitamins/Calcium 1 tablet 06/27/21 09:00 06/28/21 08:13 Therapeutic Multivitamins/Minerals Tab (*Bkc) PO 1 tablet DAILY DES Administration Pravastatin Sodium 40 mg 06/27/21 09:00 06/28/21 08:14 Pravastatin Sodium 20 Mg Tablet PO 40 mg DAILY DES Administration Vitamin D 1,000 units 06/27/21 09:00 06/28/21 08:14 Cholecalciferol 1,000 Units Tablet PO 1,000 units DAILY DES Administration Wound Care/Dressing Products 1 each 06/27/21 09:00 06/28/21 11:44 Foam Bandage (Mepilex 4x4) Bandage TOPICAL 1 each DAILY [facility] Administration Radiology Results: ITS Impressions Ankle X-Ray 06/26/21 11:41 IMPRESSION: 1. 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 No acute osseous abnormality. 2. Numerous scattered foci of metalli
[2021-06-28 14:00] VITALS: BP 114/71; PULSE 63; RESP 16; TEMP 36.4; O2SAT 97
--- NOTE | 2021-06-28 14:52 | PCPTNOTE ---
Attempted to see pt for PT evaluation this afternoon, still waiting on post-op shoe, central supply notified will se patient when it arrives.
[2021-06-28] MEDS: CLINDAMYCIN HCL 150 MG CAP 300 MG PO ×2 (16:17→21:11)
--- NOTE | 2021-06-28 16:37 | PM.IMPN ---
Progress Note: A&P Assessment and Plan (1) Neuropathic ulcer of ankle: Code(s): L97.309 - Non-pressure chronic ulcer of unspecified ankle with unspecified severity Status: Acute Assessment and Plan: 06/28/21 16:37 06/26 patient is 69-year-old male was seen by orthopedic surgeon in outpatient clinic with left ankle ulceration and patient had been treated with debridement and graft application however the wound was open and suggested patient will need surgical intervention, for this reason patient is admitted. patient will be seen by his orthopedic surgeon in the hospital and further recommendation to follow. 06/27 today patient seen his orthopedic surgeon plan was take the patient to OR for surgical debridement however there is slight improvement with Santyl dressing, wound culture is growing Gram-positive cocci and Gram-negative bacilli will follow on identification and sensitivity, patient is being treated Cefepime and vancomycin will follow-up on wound culture and further recommendation to follow. 06/28 patient remains clinically stable, wound culture grew Bacteroides sp, not B fragilis beta lactamase positive patient seen by ID suspect superficial infection reoccurrence chronic osteomyelitis recommending ciprofloxacin and clindamycin for 4 weeks, patient will follow with Orthopedics further evaluate and manage, will monitor patient over and will discharge the patient in the morning. 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: Qualifiers: Affected thrombotic vein of extremity: unspecified lower extremity distal vein Chronicity: chronic Qualified Code(s): I82.5Z1 - Chronic embolism and thrombosis of unspecified deep veins of right distal lower extremity Code(s): I82.401 - Acute embolism and thrombosis of unspecified deep veins of right lower extremity Status: Acute Assessment and Plan: patient is on Eliquis patient may have a surgery will discuss orthopedic surgeon to hold the medication or not (3) Lung nodule: Code(s): R91.1 - Solitary pulmonary nodule Status: Acute Assessment and Plan: patient remains clinically stable Subjective Date/time seen: 06/28/21 16:37 06/26 patient is 69-year-old male was seen by orthopedic surgeon in outpatient clinic with left ankle ulceration and patient had been treated with debridement and graft application however the wound was open and suggested patient will need surgical intervention, for this reason patient is admitted. patient will be seen by his orthopedic surgeon in the hospital and further recommendation to follow. 06/27 today patient seen his orthopedic surgeon plan was take the patient to OR for surgical debridement however there is slight improvement with Santyl dressing, wound culture is growing Gram-positive cocci and Gram-negative bacilli will follow on identification and sensitivity, patient is being treated Cefepime and vancomycin will follow-up on wound culture and further recommendation to follow. 06/28 patient remains clinically stable, wound culture grew Bacteroides sp, not B fragilis beta lactamase positive patient seen by ID suspect superficial infection reoccurrence chronic osteomyelitis recommending ciprofloxacin and clindamycin for 4 weeks, patient will follow with Orthopedics further evaluate and manage, will monitor patient over and will discharge the patient in the morning. Review of Systems Review of Systems: All systems reviewed & are unremarkable except as noted in HPI and below Exam Narrative: Patient is comfortable, NAD HEENT: eyes are clear and none icteric LUNGS: normal respiratory effort ABD: not distended Lower extremities: no edema, left ankle lateral aspect with wound dressed SKIN: nonjaundiced Neuro: grossly intact. Objective Data Vital Signs Vital Signs: Vital Signs - 24 hr 06/27/21 22:00 06/28/21 06:00 06/28/21 08:14 Temperature 98.6 F 98.3 F Pulse Rate 62 60 70 Re
[2021-06-28] MEDS: CIPROFLOXACIN 500 MG TAB PO (21:12)
[2021-06-28 22:00] VITALS: BP 119/66; PULSE 62; RESP 16; TEMP 36.7; O2SAT 98
[2021-06-29] MEDS: HYDROcodone/acetaminophen (*CRX) 7.5-325 MG TABLET 1 TAB PO ×2 (02:37→06:36)
[2021-06-29] MEDS: CLINDAMYCIN HCL 150 MG CAP 300 MG PO ×2 (05:40→13:57)
[2021-06-29] MEDS: LEVOTHYROXINE SODIUM 25 MCG TABLET PO (05:41)
[2021-06-29] MEDS: LEVOTHYROXINE SODIUM 112 MCG TABLET PO (05:41)
[2021-06-29 06:00] VITALS: BP 107/69; PULSE 59; RESP 18; TEMP 36.4; O2SAT 95
[2021-06-29] MEDS: COLLAGENASE OINT 30 GM TUBE 1 APPLIC TOPICAL (09:49)
[2021-06-29 09:50] VITALS: PULSE 66
[2021-06-29] MEDS: PRAVASTATIN SODIUM 20 MG TABLET 40 MG PO (09:50)
[2021-06-29] MEDS: CHLORTHALIDONE 25 MG TABLET PO (09:50)
[2021-06-29] MEDS: METOPROLOL SUCCINATE EXT REL 50 MG TABCR PO (09:50)
[2021-06-29] MEDS: LOSARTAN POTASSIUM 100 MG TABLET PO (09:50)
[2021-06-29] MEDS: THERAPEUTIC MULTIVITAMINS/MINERALS TAB (*BKC) 1 TABLET PO (09:50)
[2021-06-29] MEDS: CHOLECALCIFEROL 1,000 UNITS TABLET 1000 UNITS PO (09:51)
[2021-06-29] MEDS: CIPROFLOXACIN 500 MG TAB PO (09:51)
--- NOTE | 2021-06-29 10:02 | PM.PNORT ---
Progress Note: A&P Assessment and Plan (1) Neuropathic ulcer of ankle: Code(s): L97.309 - Non-pressure chronic ulcer of unspecified ankle with unspecified severity Status: Acute Assessment and Plan: Final wound culture reveals Bacteroides sp, not B fragilis. Plan to transition to oral antibiotics for discharge under the direction of Dr. ramey. Continue pain control in the interim with IV ibuprofen and [place]. Plan for [place] upon discharge home. Patient may transition to oral anti-inflammatories at home as well. Due to increase in drainage of the left lateral ankle wound, dressing changes were transition today to clinic in the wound with soap and water 1st, applying transfer dressing, applying 4 x 4 gauze and wrapping with Kerlix. Patient will follow up in the [facility] wound clinic on Friday of next week. No plans for further surgical debridement at this time. Patient to continue postoperative she was he is unable to tolerate the fracture boot. Discharge instructions reiterated to the patient today at the bedside. No further questions. (2) Peripheral arterial disease: Code(s): I73.9 - Peripheral vascular disease, unspecified Status: Acute Subjective Subjective Date/Time Seen: 06/29/21 10:02 Principal diagnosis: Left neuropathic ankle ulcer, left leg cellulitis Interval history: Patient still with complaints of pain of the left lateral ankle and hindfoot. Some improvement with [place]. Hopeful for discharge home today. Review of Systems Constitutional: Constitutional: Reports as per HPI and Reports no additional constitutional complaints Eyes: Eyes: Reports as per HPI and Reports no additional eye complaints ENT: Reports system reviewed and no additional complaints, except as documented and Reports as per HPI Cardiovascular: Cardiovascular: Reports as per HPI and Reports no additional cardiovascular complaints Respiratory: Respiratory: Reports as per HPI and Reports no additional respiratory complaints Gastrointestinal: Gastrointestinal: Reports as per HPI and Reports no additional gastrointestinal complaints Genitourinary: Genitourinary: Reports no additional male genitourinary complaints and Reports as per HPI Musculoskeletal: Musculoskeletal: Reports no additional musculoskeletal complaints, Reports as per HPI, Denies back pain, Reports arthralgias and Reports numbness ( Left foot) Integumentary/Breasts: Skin/Breast: Reports system reviewed and no additional complaints, except as docu and Reports as per HPI Neurologic: Reports system reviewed and no additional complaints, except as documented, Reports as per HPI and Reports numbness ( decreased sensation both feet) Psychiatric: Psychiatric: Reports no additional psychiatric complaints and Reports as per HPI Endocrine: Endocrine: Reports no additional endocrine complaints and Reports as per HPI Hematologic/Lymphatic: Hematologic/Lymphatic: Reports no additional hematologic/lymphatic complaints and Reports as per HPI Allergic/Immunologic: Allergic/Immunologic: Reports no additional allergic/immunologic complaints and Reports as per HPI Exam Const: General: healthy appearing; No in distress or confusion Orientation/consciousness: oriented to person, oriented to place, oriented to time and No confusion HENMT: Head: normal to inspection, normocephalic and atraumatic Eyes: Conjunctivae: conjunctivae normal Sclera: sclerae normal Neck: Neck: supple and nontender Resp: Effort & Inspection: normal respiratory effort and no audible wheezes Cardio: Rhythm: regular rhythm Skin: General skin exam: no rashes or lesions noted Neuro: General: oriented to person, oriented to place, oriented to time and No confusion Extrem: Right upper extremity: normal to inspection Left upper extremity: normal to inspection Right lower extremity: ankle Details: normal to inspection, abnormal ROM Details: with range as follows (ankle dorsiflexion -10 degrees
--- NOTE | 2021-06-29 13:18 | PM.DS ---
DS: Admitting Diagnosis Discharge Date 06/29/2021 Admitting Diagnosis Chief Complaint: left foot ulceration DS: Discharge Diagnosis Discharge Diagnosis (1) History of thyroidectomy: Code(s): Z90.09 - Acquired absence of other part of head and neck (2) Back pain with history of spinal surgery: Code(s): M54.9 - Dorsalgia, unspecified (3) DVT (deep venous thrombosis): Code(s): I82.409 - Acute embolism and thrombosis of unspecified deep veins of unspecified lower extremity DS: Summary Hospital Course Reason for hospitalization: patient is 69-year-old male was seen by orthopedic surgeon in outpatient clinic with left ankle ulceration and patient had been treated with debridement and graft application however the wound was open and suggested patient will need surgical intervention, for this reason patient is admitted. patient will be seen by his orthopedic surgeon in the hospital and further recommendation to follow. Chief Complaint: left foot ulceration Hospital Course: 06/26 patient is 69-year-old male was seen by orthopedic surgeon in outpatient clinic with left ankle ulceration and patient had been treated with debridement and graft application however the wound was open and suggested patient will need surgical intervention, for this reason patient is admitted. patient will be seen by his orthopedic surgeon in the hospital and further recommendation to follow. 06/27 today patient seen his orthopedic surgeon plan was take the patient to OR for surgical debridement however there is slight improvement with Santyl dressing, wound culture is growing Gram-positive cocci and Gram-negative bacilli will follow on identification and sensitivity, patient is being treated Cefepime and vancomycin will follow-up on wound culture and further recommendation to follow. 06/28 patient remains clinically stable, wound culture grew Bacteroides sp, not B fragilis beta lactamase positive patient seen by ID suspect superficial infection reoccurrence chronic osteomyelitis recommending ciprofloxacin and clindamycin for 4 weeks, patient will follow with Orthopedics further evaluate and manage, will monitor patient over and will discharge the patient in the morning. patient is clinically stable will discharge the patient today Time Spent with Patient Time attestation: Total time spent providing and/or coordinating discharge services: Exam Narrative: Patient is comfortable, NAD HEENT: eyes are clear and none icteric LUNGS: normal respiratory effort ABD: not distended Lower extremities: no edema, left ankle lateral aspect with wound dressed SKIN: nonjaundiced Neuro: grossly intact. DS: Data Data Completed and Pending Labs on day of discharge: Preliminary micro results at discharge 06/26/21 16:44 Anaerobic Culture - Preliminary Ankle Left Bacteroides sp, not B fragilis Discharge Plan Discharge Attending physician on discharge: Corrine Dennison Consulting providers: Devonte Powell ; Aris Rodriguez ; Nate Lambert ; Pio Perez ; Marcela Núñez Discharging Clinician: Corrine Dennison Patient Disposition: Home, Self-Care Activity: may shower and follow weight bearing status Diet: as tolerated Wound Care Instructions: follow printed instructions and change dressing daily Discharge Instructions: Wound Care Instructions Dr. Devonte Powell [phone] Daily cleanse wound with soap/water, apply Santyl ointment to wound on left ankle, cover with transfer, 4x4 gauze and wrap with kerlex. Keep wound covered at all times. Your [facility] will be on Friday at 9:00am You may shower. Weight bearing as tolerated. Post op shoe. Patient to follow discharge care instruction from his orthopedics and follow up as scheduled in the wound clinic, patient to follow up with his oncologist as scheduled for coming . patient to follow up with his primary care pr
[2021-06-29] MEDS: IBUPROFEN IV 400 MG in SODIUM CHLORIDE 0.9% IV 100 ML 200 MG IVPB (13:55)
[2021-06-29 15:32] VITALS: BP 110/64; PULSE 66; RESP 12; TEMP 36.7; O2SAT 95
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
== END 2021-06-29 14:50 | disposition home or self-care (01) | DRG 540 ==
PROVIDERS: Orthopaedic Surgery; Admitting Provider Family Medicine; Visit Provider Family Medicine
DX: M86.172 Other acute osteomyelitis, left ankle and foot (principal); L97.329 Non-pressure chronic ulcer of left ankle with unspecified severity; I82.5Z1 Chronic embolism and thrombosis of unspecified deep veins of right distal lower extremity; M86.672 Other chronic osteomyelitis, left ankle and foot; B96.89 Other specified bacterial agents as the cause of diseases classified elsewhere; I73.9 Peripheral vascular disease, unspecified; R91.1 Solitary pulmonary nodule; D49.1 Neoplasm of unspecified behavior of respiratory system; M19.90 Unspecified osteoarthritis, unspecified site; B95.4 Other streptococcus as the cause of diseases classified elsewhere; R73.9 Hyperglycemia, unspecified
CPT/HCPCS: 36415; 73610; 73630; 73701; 80048; 80053; 85025; 85652; 86140; 87070; 87075; 87076; 87185; 87205; 93005; 93922; 97161; 99212; A9270; G0463; J1741; J2543; J3370; Q9967

== ENCOUNTER 2021-07-16 02:23 | Day surgery (SDC) | payer MEDICARE, OTHER, SELFPAY ==
[2021-07-11 15:36] VITALS: BMI 28.4
--- NOTE | 2021-07-13 13:21 | WPDANESEPPF ---
Anes - Initial Pre Proc Eval Procedure: Operation Date: 07/16/21 07:30 Proposed Procedures p Debride Left Ankle Ulcer with Graft Application - Devonte Powell MD Date/Time: 07/13/21 13:22 Surgeon: Devonte Powell MD Pre Op Diagnosis: left ankle ulcer Patient Data Age: 71 Gender: M Height: 1.83 m Weight: 95 kg Allergies Allergy/AdvReac Type Severity Reaction Status Date / Time propoxyphene Allergy Intermediate Swelling Verified 07/12/21 11:17 Home Medications Medication Instructions Recorded Confirmed Type metoprolol succinate 50 mg PO QAM 08/06/19 07/11/21 History chlorthalidone 25 mg PO QAM 05/11/21 07/11/21 History levothyroxine [Synthroid] 137 mcg PO QAM 05/11/21 07/11/21 History losartan 100 mg PO QAM 05/11/21 07/11/21 History pravastatin 40 mg PO DAILY 05/11/21 07/11/21 History Eliquis 5 mg PO BID 06/26/21 07/11/21 History One-A-Day Men's Multivitamin 1 tablet PO DAILY 06/26/21 07/11/21 History cholecalciferol (vitamin D3) 50 mcg PO DAILY 06/26/21 07/11/21 History [Vitamin D3] ciprofloxacin HCl 500 mg PO Q12HR #56 tablet 06/29/21 07/11/21 Rx clindamycin HCl 300 mg PO Q8HR #84 cap 06/29/21 07/11/21 Rx collagenase clostridium histo. 1 applic TOPICAL QAM #30 g 06/29/21 07/11/21 Rx [Santyl] hydrocodone 7.5 mg-acetaminophen 1 tablet PO Q4-6H PRN #30 tablet 07/13/21 Rx 325 mg tablet Patient hx anesthesia problems: none Family hx anesthesia problems: none Results Review: All pre-operative results and documents have been reviewed as part of the pre-operative evaluation. 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 Vision abnormalities Surgical History Surgical History History of thyroidectomy Family History Family History Mother Diabetes mellitus Brain aneurysm Father Heart disease Social History Social History Alcohol intake: current Substance use: never Substance use type: does not use Living arrangements: with family Additional living arrangements comments: [facility] Gender identity (if verbalized by the patient): Male Spiritual care concerns: No Anes - Eval Final PreProcedure Day of Procedure 07/13/21 13:22 Patient weight: overweight Heart: regular rate and rhythm Lungs: clear to auscultation Airway: Mallampati scale class III Neurological: alert and oriented Last oral intake: >/= 8 hours ASA classification: III Emergent: no Anesthetic plan: proceed Anesthesia type and monitoring: general LMA and standard monitoring Results Review: All pre-operative results and documents have been reviewed as part of the pre-operative evaluation. Informed Consent: The patient's anesthetic plan and its attendant risks and benefits were discussed with the patient/family/POA. Questions were solicited and answers provided to the satisfaction of the patient/family/POA.
[2021-07-16] VITALS (8 sets, daily range): BP systolic 104–119; BP diastolic 57–64; PULSE 50–64; RESP 8–16; TEMP 36.2–36.4; O2SAT 93–100; BMI 28.5
[2021-07-16] MEDS: KETOROLAC 15 MG/ML VIAL (*BKC) IV PUSH (07:00)
[2021-07-16] MEDS: LACTATED RINGERS 1,000 ML 30 ML IV CONT ×2 (07:00→08:33)
[2021-07-16] MEDS: ACETAMINOPHEN 500 MG TABLET 1000 MG PO (07:00)
--- NOTE | 2021-07-16 07:12 | WPDHPUPDATE1 ---
History and Physical Update Update Date/Time: 07/16/21 07:12 History and Physical has been reviewed, including an updated exam of the patient. There are NO changes in the patient's condition. Left ankle debridement Risks, benefits, and alternatives have been discussed and questions answered. Patient agrees to proceed with procedure.
[2021-07-16] MEDS: ceFAZolin 2 GM/D5W 50 ML 2 GM/50 ML BAG IVPB (07:30)
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
[2021-07-16] MEDS: fentaNYL CITRATE INJ (*CRX) 100 MCG/2 ML VIAL 25 MCG IV PUSH ×4 (08:53→09:20)
[2021-07-16] MEDS: oxyCODONE HCL (*CRX) 5 MG TAB IR PO (09:37)
--- NOTE | 2021-07-16 09:40 | SUR.PHASEII ---
Crutches ordered for patient, patient states he has used crutches before and is confident in his ability to use them
== END 2021-07-16 10:20 | disposition home or self-care (01) ==
PROVIDERS: Visit Provider Orthopaedic Surgery
PROC: (CPT 27610; principal; 2021-07-16 07:30)
DX: L97.329 Non-pressure chronic ulcer of left ankle with unspecified severity (principal); M12.572 Traumatic arthropathy, left ankle and foot; I73.9 Peripheral vascular disease, unspecified; I10 Essential (primary) hypertension; E78.5 Hyperlipidemia, unspecified; E89.0 Postprocedural hypothyroidism; Z85.850 Personal history of malignant neoplasm of thyroid; Z86.718 Personal history of other venous thrombosis and embolism; Z79.01 Long term (current) use of anticoagulants; Z79.891 Long term (current) use of opiate analgesic
CPT/HCPCS: 27610; 15271; 15002; A9270; C9363; J0690; J1100; J1885; J2250; J2405; J2704; J3010; J3370; J7120; Q4118

== ENCOUNTER 2021-09-04 07:18 | Outpatient (RCR) | payer MEDICARE, OTHER, SELFPAY ==
[2021-06-12 09:21] VITALS: BMI 26.1
--- NOTE | 2021-06-26 09:05 | PM.IMHP ---
H&P: HPI History of Present Illness Date/Time: 06/26/21 09:05 Chief Complaint: Left ankle ulcer Narrative: 71-year-old gentleman returns for re-evaluation to the [facility]. Complains of increasing size to the left ankle ulcer for the past 4 days. Complains of increased swelling and pain with weight-bearing. Pain is around the heel and the posterior aspect of the ankle. He has not noted any change in drainage. He denies fever or chills. Review of Systems Constitutional: Constitutional: Reports as per HPI and Reports no additional constitutional complaints Eyes: Eyes: Reports as per HPI and Reports no additional eye complaints ENT: Reports system reviewed and no additional complaints, except as documented and Reports as per HPI Cardiovascular: Cardiovascular: Reports as per HPI and Reports no additional cardiovascular complaints Respiratory: Respiratory: Reports as per HPI and Reports no additional respiratory complaints Gastrointestinal: Gastrointestinal: Reports as per HPI and Reports no additional gastrointestinal complaints Genitourinary: Genitourinary: Reports no additional male genitourinary complaints and Reports as per HPI Musculoskeletal: Musculoskeletal: Reports no additional musculoskeletal complaints, Reports as per HPI, Denies back pain and Reports arthralgias Integumentary/Breasts: Skin/Breast: Reports system reviewed and no additional complaints, except as docu and Reports as per HPI Neurologic: Reports system reviewed and no additional complaints, except as documented and Reports as per HPI Psychiatric: Psychiatric: Reports no additional psychiatric complaints and Reports as per HPI Endocrine: Endocrine: Reports no additional endocrine complaints and Reports as per HPI Hematologic/Lymphatic: Hematologic/Lymphatic: Reports no additional hematologic/lymphatic complaints and Reports as per HPI Allergic/Immunologic: Allergic/Immunologic: Reports no additional allergic/immunologic complaints and Reports as per HPI [facility] Past Medical History Medical History (Updated 06/26/21 @ 09:13 by Devonte Powell MD) Adhesive capsulitis Arthritis Back pain with history of spinal surgery 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 DVT (deep venous thrombosis) Irregular heartbeat Left shoulder pain Lung nodule 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 Vision abnormalities Surgical History Surgical History History of thyroidectomy Social History Social History Smoking status: Never smoker Alcohol intake: current Gender identity (if verbalized by the patient): Male Meds Home Medications and Allergies Home Medications Medication Instructions Recorded Confirmed Type calcium carbonate [Tums] 200 mg PO QID 05/11/21 06/12/21 History chlorthalidone 25 mg PO DAILY 05/11/21 06/12/21 History hydrocodone-acetaminophen 1 tablet PO BID PRN #4 tablet 05/11/21 06/12/21 Rx ibuprofen 800 mg PO TID #20 tablet 05/11/21 06/12/21 Rx levothyroxine [Synthroid] 137 mcg PO DAILY 05/11/21 06/12/21 History losartan 100 mg PO DAILY 05/11/21 06/12/21 History metoprolol succinate 50 mg PO DAILY 05/11/21 06/12/21 History omeprazole magnesium [Prilosec OTC] 20 mg PO BID #20 tablet 05/11/21 06/12/21 Rx pravastatin [Pravachol] 40 mg PO DAILY 05/11/21 06/12/21 History spironolactone [Aldactone] 50 mg PO DAILY 05/11/21 06/12/21 History Allergies Allergy/AdvReac Type Severity Reaction Status Date / Time No Known Allergies Allergy Verified 06/12/21 13:12 Exam Const: General: healthy appearing; No in distress or confusion Orientation/consciousness: oriented to person, oriented to place, oriented to time and No confusion HENMT: Head: normal to inspection, normocephalic and atraumatic Eyes: Conjunctivae: conjunctivae normal Sclera: sclerae normal Neck: Neck:
--- NOTE | 2021-07-03 13:08 | PM.IMHP ---
H&P: HPI History of Present Illness Date/Time: 07/03/21 13:08 Chief Complaint: Left ankle wound Narrative: 71-year-old male follows up in the [facility] wound clinic status post hospitalization for worsening lateral ankle wound. Cultures and CT scan obtained in the hospital setting. Cultures with evidence of Bacteroides. Infections disease ordered patient to begin clindamycin and ciprofloxacin. Patient denies any complications with above antibiotic coverage. He continues to have pain in the hindfoot of the left foot. He has been able to bear weight however. He is tolerating pain medication well. He is performing daily dressing changes. He denies fever, chills, night sweats, nausea, vomiting or diarrhea. Review of Systems Constitutional: Constitutional: Reports as per HPI and Reports no additional constitutional complaints Eyes: Eyes: Reports as per HPI and Reports no additional eye complaints ENT: Reports system reviewed and no additional complaints, except as documented and Reports as per HPI Cardiovascular: Cardiovascular: Reports as per HPI and Reports no additional cardiovascular complaints Respiratory: Respiratory: Reports as per HPI and Reports no additional respiratory complaints Gastrointestinal: Gastrointestinal: Reports as per HPI and Reports no additional gastrointestinal complaints Genitourinary: Genitourinary: Reports no additional male genitourinary complaints and Reports as per HPI Musculoskeletal: Musculoskeletal: Reports no additional musculoskeletal complaints, Reports as per HPI, Denies back pain and Reports arthralgias Integumentary/Breasts: Skin/Breast: Reports system reviewed and no additional complaints, except as docu and Reports as per HPI Neurologic: Reports system reviewed and no additional complaints, except as documented and Reports as per HPI Psychiatric: Psychiatric: Reports no additional psychiatric complaints and Reports as per HPI Endocrine: Endocrine: Reports no additional endocrine complaints and Reports as per HPI Hematologic/Lymphatic: Hematologic/Lymphatic: Reports no additional hematologic/lymphatic complaints and Reports as per HPI Allergic/Immunologic: Allergic/Immunologic: Reports no additional allergic/immunologic complaints and Reports as per HPI PMFSH Past Medical History Medical History Adhesive capsulitis Arthritis Back pain with history of spinal surgery 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 DVT (deep venous thrombosis) H/O malignant neoplasm of thyroid Hyperlipidemia Hypertension Hypothyroid Irregular heartbeat Left shoulder pain Lung nodule Neuropathic ulcer of ankle Peripheral arterial disease Skin ulcer of ankle, limited to breakdown of skin Tumor of lung Vision abnormalities Surgical History Surgical History History of thyroidectomy Family History Family History Mother Diabetes mellitus Brain aneurysm Father Heart disease Social History Social History Smoking status: Never smoker Alcohol intake: never Substance use: never Substance use type: does not use Gender identity (if verbalized by the patient): Male Spiritual care concerns: No Meds Home Medications and Allergies Home Medications Medication Instructions Recorded Confirmed Type amlodipine 10 mg PO DAILY 08/06/19 09/21/20 History metoprolol succinate 50 mg PO DAILY 08/06/19 09/21/20 History spironolactone 50 mg PO DAILY 08/06/19 09/21/20 History chlorthalidone 25 mg PO DAILY 05/11/21 06/26/21 History levothyroxine [Synthroid] 137 mcg PO DAILY 05/11/21 06/26/21 History losartan 100 mg PO DAILY 05/11/21 06/26/21 History pravastatin 40 mg PO DAILY 05/11/21 06/26/21 History Eliquis 10 mg PO DAILY 06/26/21 06/26/21 History One-A-Day Men's M
--- NOTE | 2021-07-20 08:34 | PM.PNORT ---
Progress Note: A&P Assessment and Plan (1) Neuropathic ulcer of ankle: Code(s): L97.309 - Non-pressure chronic ulcer of unspecified ankle with unspecified severity Status: Acute Assessment and Plan: Four days status post Ankle debridement with application graft and removal of foreign body from the leg. dressing change today. Graft appears to be incorporating nicely. Total contact cast to protect graft and ankle. Protected weight-bearing. Crutches for support. Cast changes weekly for until graft incorporated. Subjective Subjective Date/Time Seen: 07/20/21 08:34 Post Op day: 4 Principal diagnosis: Left ankle neuropathic ulcer, ankle arthritis Interval history: 4 days status post left ankle debridement and application graft. Patient in a splint. States pain improved. Rates as /10. Using crutches. Exam Const: General: healthy appearing; No in distress or confusion Orientation/consciousness: oriented to person, oriented to place, oriented to time and No confusion HENMT: Head: normal to inspection, normocephalic and atraumatic Eyes: Conjunctivae: conjunctivae normal Sclera: sclerae normal Neck: Neck: supple and nontender Resp: Effort & Inspection: normal respiratory effort and no audible wheezes Cardio: Rhythm: regular rhythm Skin: General skin exam: no rashes or lesions noted Neuro: General: oriented to person, oriented to place, oriented to time and No confusion Extrem: Right upper extremity: normal to inspection Left upper extremity: normal to inspection Right lower extremity: ankle Details: normal to inspection, abnormal ROM Details: with range as follows (ankle dorsiflexion -10 degrees, plantar flexion 40?, inversion 15?, eversion 15?) and other ( good stability all directions); no tenderness, no swelling and no ecchymosis and foot Details: abnormal to inspection, abnormal ROM of toe ( hallux MTP dorsiflexion 40, plantar flexion 20?), vascular exam Details: dorsalis pedis pulse present and normal capillary refill, tendon exam Details: active flexion abnormal and active extension abnormal, motor-sensory exam Details: two point discrimination abnormal Location: in all toes and light-touch abnormal Location: in all toes and other (Hallux metatarsophalangeal motion 20? dorsiflexion/10? plantar flexion) Left lower extremity: ankle Details: abnormal to inspection Details: other ( Anterolateral ankle ulcer Covered with graft. Graft appears to be taking.), tenderness Location: anterolaterally and posteriorly (Posterior subtalar joint and achilles tendon), swelling Details: diffusely ( ankle and hindfoot, mild erythema anterior above the ankle joint) and abnormal ROM Details: pain with passive ROM Details: with inversion and with eversion and with range as follows (ankle dorsiflexion -20 degrees, plantar flexion 30?, inversion 5?, eversion 5?) and foot Details: normal capillary refill, abnormal ROM of toe, vascular exam (2+DP pulse, good cap refill all toes), tendon exam active flexion abnormal of the great toe and active extension abnormal of the great toe and motor-sensory exam two point discrimination abnormal and light-touch abnormal in all toes; no tenderness and no crepitus Other: Anterior tibial incision approximated with suture. No drainage or erythema. Psych: Affect: normal affect Objective Data Meds/Results Medications: Active Medications Generic Name Dose Route Start Last Admin Trade Name Freq PRN Reason Stop Dose Admin Clotrimazole 1 applic 06/12/21 13:11 Betamethasone/Clotrimazole Cr 15 Gm Tube TOPICAL 09/12/21 23:55 PRN PRN Wound Care Silver Nitrate 1 applic 06/12/21 13:11 Silvergel (Elta) 45 Ml TOPICAL 09/12/21 23:55 PRN PRN Wound Care Wound Care/Dressing Products 1 each 06/12/21 13:12 Foam Bandage (Mepilex 4x4) Bandage TOPICAL 09/12/21 23:55 PRN PRN Wound Care Fracture/Casting/Strapping Pre Procedure Consent was obtained, Pro
--- NOTE | 2021-07-27 08:30 | PM.PNORT ---
Progress Note: A&P Assessment and Plan (1) Neuropathic ulcer of ankle: Code(s): L97.309 - Non-pressure chronic ulcer of unspecified ankle with unspecified severity Status: Acute Assessment and Plan: 11 days status post Left Ankle debridement with application graft and removal of foreign body from the leg. dressing change today. Graft appears to be incorporating nicely. sutures from the foreign body removal removed today. Total contact cast to protect graft and ankle. Protected weight-bearing. Crutches for support. Cast removal in 1 week, removal silicone layer graft at that time. Subjective Subjective Date/Time Seen: 07/27/21 08:30 Post Op day: 11 Principal diagnosis: Left ankle neuropathic ulcer Interval history: re-evaluation status post left ankle ulcer debridement, ankle joint debridement and application of graft. Total contact cast. No complications Reported. Exam Const: General: healthy appearing; No in distress or confusion Orientation/consciousness: oriented to person, oriented to place, oriented to time and No confusion HENMT: Head: normal to inspection, normocephalic and atraumatic Eyes: Conjunctivae: conjunctivae normal Sclera: sclerae normal Neck: Neck: supple and nontender Resp: Effort & Inspection: normal respiratory effort and no audible wheezes Cardio: Rhythm: regular rhythm Skin: General skin exam: no rashes or lesions noted Neuro: General: oriented to person, oriented to place, oriented to time and No confusion Extrem: Right upper extremity: normal to inspection Left upper extremity: normal to inspection Right lower extremity: ankle Details: normal to inspection, abnormal ROM Details: with range as follows (ankle dorsiflexion -10 degrees, plantar flexion 40?, inversion 15?, eversion 15?) and other ( good stability all directions); no tenderness, no swelling and no ecchymosis and foot Details: abnormal to inspection, abnormal ROM of toe ( hallux MTP dorsiflexion 40, plantar flexion 20?), vascular exam Details: dorsalis pedis pulse present and normal capillary refill, tendon exam Details: active flexion abnormal and active extension abnormal, motor-sensory exam Details: two point discrimination abnormal Location: in all toes and light-touch abnormal Location: in all toes and other (Hallux metatarsophalangeal motion 20? dorsiflexion/10? plantar flexion) Left lower extremity: ankle Details: abnormal to inspection Details: other ( Anterolateral ankle ulcer Covered with graft. Graft appears to be taking.), tenderness Location: anterolaterally and posteriorly (Posterior subtalar joint and achilles tendon), swelling Details: diffusely ( ankle and hindfoot, mild erythema anterior above the ankle joint) and abnormal ROM Details: pain with passive ROM Details: with inversion and with eversion and with range as follows (ankle dorsiflexion -20 degrees, plantar flexion 30?, inversion 5?, eversion 5?) and foot Details: normal capillary refill, abnormal ROM of toe, vascular exam (2+DP pulse, good cap refill all toes), tendon exam active flexion abnormal of the great toe and active extension abnormal of the great toe and motor-sensory exam two point discrimination abnormal and light-touch abnormal in all toes; no tenderness and no crepitus Other: Anterior tibial incision approximated with suture. No drainage or erythema. anterolateral ankle graft intact, appears to be incorporating. 4 x 3 cm Psych: Affect: normal affect Objective Data Meds/Results Medications: Active Medications Generic Name Dose Route Start Last Admin Trade Name Freq PRN Reason Stop Dose Admin Clotrimazole 1 applic 06/12/21 13:11 Betamethasone/Clotrimazole Cr 15 Gm Tube TOPICAL 09/12/21 23:55 PRN PRN Wound Care Silver Nitrate 1 applic 06/12/21 13:11 Silvergel (Elta) 45 Ml TOPICAL 09/12/21 23:55 PRN PRN Wound Care Wound Care/Dressing Products 1 each 06/12/21 13:12 Foam Bandage (Mepilex 4x4
--- NOTE | 2021-08-03 08:38 | PM.PNORT ---
Progress Note: A&P Assessment and Plan (1) Neuropathic ulcer of ankle: Code(s): L97.309 - Non-pressure chronic ulcer of unspecified ankle with unspecified severity Status: Acute Assessment and Plan: 18 days status post Left Ankle debridement with application graft and removal of foreign body from the leg. dressing change today. Cast removed. Silicone layer of ankle graft removed with sutures. Dehiscence of the midportion of the wound 2 x 3 cm. Debrided and repeat graft application. Start dressing changed tomorrow with silver gel and foam. Postoperative shoe. Protected weight-bearing. Crutches for support. Follow-up in 1 week Subjective Subjective Date/Time Seen: 08/03/21 08:38 Post Op day: 18 Principal diagnosis: Left ankle ulcer Interval history: 2.5 weeks status post debridement and application of graft left ankle. Cast in place. No interim complaints. Exam Const: General: healthy appearing; No in distress or confusion Orientation/consciousness: oriented to person, oriented to place, oriented to time and No confusion HENMT: Head: normal to inspection, normocephalic and atraumatic Eyes: Conjunctivae: conjunctivae normal Sclera: sclerae normal Neck: Neck: supple and nontender Resp: Effort & Inspection: normal respiratory effort and no audible wheezes Cardio: Rhythm: regular rhythm Skin: General skin exam: no rashes or lesions noted Neuro: General: oriented to person, oriented to place, oriented to time and No confusion Extrem: Right upper extremity: normal to inspection Left upper extremity: normal to inspection Right lower extremity: ankle Details: normal to inspection, abnormal ROM Details: with range as follows (ankle dorsiflexion -10 degrees, plantar flexion 40?, inversion 15?, eversion 15?) and other ( good stability all directions); no tenderness, no swelling and no ecchymosis and foot Details: abnormal to inspection, abnormal ROM of toe ( hallux MTP dorsiflexion 40, plantar flexion 20?), vascular exam Details: dorsalis pedis pulse present and normal capillary refill, tendon exam Details: active flexion abnormal and active extension abnormal, motor-sensory exam Details: two point discrimination abnormal Location: in all toes and light-touch abnormal Location: in all toes and other (Hallux metatarsophalangeal motion 20? dorsiflexion/10? plantar flexion) Left lower extremity: ankle Details: abnormal to inspection Details: other ( Anterolateral ankle ulcer Covered with graft. Graft appears to be taking.), tenderness Location: anterolaterally and posteriorly (Posterior subtalar joint and achilles tendon), swelling Details: diffusely ( ankle and hindfoot, mild erythema anterior above the ankle joint) and abnormal ROM Details: pain with passive ROM Details: with inversion and with eversion and with range as follows (ankle dorsiflexion -20 degrees, plantar flexion 30?, inversion 5?, eversion 5?) and foot Details: normal capillary refill, abnormal ROM of toe, vascular exam (2+DP pulse, good cap refill all toes), tendon exam active flexion abnormal of the great toe and active extension abnormal of the great toe and motor-sensory exam two point discrimination abnormal and light-touch abnormal in all toes; no tenderness and no crepitus Other: Anterior tibial incision Well-healed. No drainage or erythema. anterolateral ankle graft Silicone from graft. 3.5 x 3 cm Psych: Affect: normal affect Objective Data Meds/Results Medications: Active Medications Generic Name Dose Route Start Last Admin Trade Name Freq PRN Reason Stop Dose Admin Clotrimazole 1 applic 06/12/21 13:11 Betamethasone/Clotrimazole Cr 15 Gm Tube TOPICAL 09/12/21 23:55 PRN PRN Wound Care Silver Nitrate 1 applic 06/12/21 13:11 Silvergel (Elta) 45 Ml TOPICAL 09/12/21 23:55 PRN PRN Wound Care Wound Care/Dressing Products 1 each 06/12/21 13:12 Foam Bandage (Mepilex 4x4) Bandage TOPICAL 1
--- NOTE | 2021-08-10 08:39 | PM.PNORT ---
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 dressing change today. Start Santyl ointment to improve slough. Continue with daily dressing change with foam. Postoperative shoe. Protected weight-bearing. Crutches for support. Follow-up in 1 week to re-evaluate for graft re-application. Long-term options for ankle ulcer discussed today including continued conservative care, re-application grafts and surgical debridement, plastic surgery evaluation for possible rotation or free flap, option for amputation. Questions answered. Patient has declined plastic surgery evaluation at this time. Continue with current wound care. Subjective Subjective Date/Time Seen: 08/10/21 08:39 Principal diagnosis: Left ankle ulcer Interval history: patient returns to [facility] outpatient wound clinic for postoperative follow-up left ankle. 3.5 weeks status post debridement and application of graft. We started dressing changes at the last visit. He was applying silver gel. Exam Const: General: healthy appearing; No in distress or confusion Orientation/consciousness: oriented to person, oriented to place, oriented to time and No confusion HENMT: Head: normal to inspection, normocephalic and atraumatic Eyes: Conjunctivae: conjunctivae normal Sclera: sclerae normal Neck: Neck: supple and nontender Resp: Effort & Inspection: normal respiratory effort and no audible wheezes Cardio: Rhythm: regular rhythm Skin: General skin exam: no rashes or lesions noted Neuro: General: oriented to person, oriented to place, oriented to time and No confusion Extrem: Right upper extremity: normal to inspection Left upper extremity: normal to inspection Right lower extremity: ankle Details: normal to inspection, abnormal ROM Details: with range as follows (ankle dorsiflexion -10 degrees, plantar flexion 40?, inversion 15?, eversion 15?) and other ( good stability all directions); no tenderness, no swelling and no ecchymosis and foot Details: abnormal to inspection, abnormal ROM of toe ( hallux MTP dorsiflexion 40, plantar flexion 20?), vascular exam Details: dorsalis pedis pulse present and normal capillary refill, tendon exam Details: active flexion abnormal and active extension abnormal, motor-sensory exam Details: two point discrimination abnormal Location: in all toes and light-touch abnormal Location: in all toes and other (Hallux metatarsophalangeal motion 20? dorsiflexion/10? plantar flexion) Left lower extremity: ankle Details: abnormal to inspection Details: other ( Anterolateral ankle ulcer Covered with graft. Graft appears to be taking.), tenderness Location: anterolaterally and posteriorly (Posterior subtalar joint and achilles tendon), swelling Details: diffusely ( ankle and hindfoot, mild erythema anterior above the ankle joint) and abnormal ROM Details: pain with passive ROM Details: with inversion and with eversion and with range as follows (ankle dorsiflexion -20 degrees, plantar flexion 25?, inversion 5?, eversion 0?) and foot Details: normal capillary refill, abnormal ROM of toe, vascular exam (2+DP pulse, good cap refill all toes), tendon exam active flexion abnormal of the great toe and active extension abnormal of the great toe and motor-sensory exam two point discrimination abnormal and light-touch abnormal in all toes; no tenderness and no crepitus Other: Anterior tibial incision Well-healed. No drainage or erythema. anterolateral ankle ulcer 3.5 x 3 X 1.5 cm. 70% slough. Good granulation at the wound edge Psych: Affect: normal affect Objective Data Meds/Results Medications: Active Medications Generic Name Dose Route Start Last Admin Trade Name Sundar Marina
--- NOTE | 2021-08-16 08:47 | PM.PNORT ---
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 He has been performing daily dressing changes with Santyl to improve slough. Marked improvement in overall wound bed appearance today. Decrease in slough. He has been indicated for graft application in the outpatient setting to expedite wound healing. Graft applied to the left lateral ankle, see procedure for details. Dressing in place. Patient to keep dressing in place x3 days and then resume daily dressing changes. Transition to silver gel and Ana Maria at that time. Follow up in 1 week for reevaluation. Possible repeat graft application in 2 weeks. Reviewed signs of infection for which to report to ED immediately. (2) Lower extremity edema: Code(s): R60.0 - Localized edema Status: Inactive Assessment and Plan: Patient with complaints of increased LLE swelling since last week. 2+ pitting edema b/l LE. Left equal to right. No new signs of infection in regards to the wound bed. No signs of DVT. Negative Hetal's sign. Patient restarted diruetic on Friday by PCP. Continue to monitor. Recommended contacting PCP if he fails to continue to improve. Contact our office with acute changes of wound bed or erythema surrounding. and patient verbalize understanding. Subjective Subjective Date/Time Seen: 08/16/21 08:47 Interval history: 71 year old male returns today to [facility] wound clinic for reevaluation of the left ankle. 4 weeks s/p debridement/graft application of the left lateral ankle wound. He has been performing dressing changes since last week with the addition of Santyl. He had some concerns regarding increase b/l LE swelling over the week and early this week. He restarted his diuretics and has noted improvement. Review of Systems Constitutional: Constitutional: Reports as per HPI and Reports no additional constitutional complaints Eyes: Eyes: Reports as per HPI and Reports no additional eye complaints ENT: Reports system reviewed and no additional complaints, except as documented and Reports as per HPI Cardiovascular: Cardiovascular: Reports as per HPI and Reports no additional cardiovascular complaints Respiratory: Respiratory: Reports as per HPI and Reports no additional respiratory complaints Gastrointestinal: Gastrointestinal: Reports as per HPI and Reports no additional gastrointestinal complaints Genitourinary: Genitourinary: Reports no additional male genitourinary complaints and Reports as per HPI Musculoskeletal: Musculoskeletal: Reports no additional musculoskeletal complaints, Reports as per HPI, Denies back pain and Reports arthralgias Integumentary/Breasts: Skin/Breast: Reports system reviewed and no additional complaints, except as docu and Reports as per HPI Neurologic: Reports system reviewed and no additional complaints, except as documented and Reports as per HPI Psychiatric: Psychiatric: Reports no additional psychiatric complaints and Reports as per HPI Endocrine: Endocrine: Reports no additional endocrine complaints and Reports as per HPI Hematologic/Lymphatic: Hematologic/Lymphatic: Reports no additional hematologic/lymphatic complaints and Reports as per HPI Allergic/Immunologic: Allergic/Immunologic: Reports no additional allergic/immunologic complaints and Reports as per HPI Exam Const: General: healthy appearing; No in distress or confusion Orientation/consciousness: oriented to person, oriented to place, oriented to time and No confusion HENMT: Head: normal to inspection, normocephalic and atraumatic Eyes: Conjunctivae: conjunctivae normal Sclera: sclerae normal Neck: Neck: supple and nontender Resp: Effort & Inspection: normal respiratory effort and no aud
--- NOTE | 2021-08-24 11:43 | PM.PNORT ---
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 1 week, 1 day s/p amnioexcel graft application in the wound clinic. He has been performing daily dressing changes with silver gel/tracy since Friday of last week. No new signs of infection. Patient to continue with daily dressing changes with silver gel and tracy. Patient and did express interest in seeking more information regarding a skin graft to expedite healing in order for him to resume his chemotherapy oral medication for lung cancer. They previously discussed this with Dr. Powell. He does have an appt with his oncologist to review CT scan. If progression of tumor, patient will want to further discuss more aggressive wound closure options. Follow up in 1 week for graft application. Reviewed signs of infection for which to report to ED immediately. (2) Lower extremity edema: Code(s): R60.0 - Localized edema Status: Inactive Assessment and Plan: Improvement with LE edema. Continue diruetics. Recommended elevation of LE. Subjective Subjective Date/Time Seen: 08/24/21 11:43 Interval history: 71 year old male returns today to [facility] wound clinic for reevaluation of the left ankle. 5 weeks, 4 days s/p debridement/graft application of the left lateral ankle wound and 1 week, 1 day s/p amnioexcel graft application in the outpatient wound clinic setting. He has been performing dressing changes since Friday with silver gel/prismal. No new concerns today. Review of Systems Constitutional: Constitutional: Reports as per HPI and Reports no additional constitutional complaints Eyes: Eyes: Reports as per HPI and Reports no additional eye complaints ENT: Reports system reviewed and no additional complaints, except as documented and Reports as per HPI Cardiovascular: Cardiovascular: Reports as per HPI and Reports no additional cardiovascular complaints Respiratory: Respiratory: Reports as per HPI and Reports no additional respiratory complaints Gastrointestinal: Gastrointestinal: Reports as per HPI and Reports no additional gastrointestinal complaints Genitourinary: Genitourinary: Reports no additional male genitourinary complaints and Reports as per HPI Musculoskeletal: Musculoskeletal: Reports no additional musculoskeletal complaints, Reports as per HPI, Denies back pain and Reports arthralgias Integumentary/Breasts: Skin/Breast: Reports system reviewed and no additional complaints, except as docu and Reports as per HPI Neurologic: Reports system reviewed and no additional complaints, except as documented and Reports as per HPI Psychiatric: Psychiatric: Reports no additional psychiatric complaints and Reports as per HPI Endocrine: Endocrine: Reports no additional endocrine complaints and Reports as per HPI Hematologic/Lymphatic: Hematologic/Lymphatic: Reports no additional hematologic/lymphatic complaints and Reports as per HPI Allergic/Immunologic: Allergic/Immunologic: Reports no additional allergic/immunologic complaints and Reports as per HPI Exam Const: General: healthy appearing; No in distress or confusion Orientation/consciousness: oriented to person, oriented to place, oriented to time and No confusion HENMT: Head: normal to inspection, normocephalic and atraumatic Eyes: Conjunctivae: conjunctivae normal Sclera: sclerae normal Neck: Neck: supple and nontender Resp: Effort & Inspection: normal respiratory effort and no audible wheezes Cardio: Rhythm: regular rhythm Skin: General skin exam: no rashes or lesions noted Neuro: General: oriented to person, oriented to place, oriented to time and No confusion Extrem: Right upper extremity: normal to inspection Le
--- NOTE | 2021-08-28 09:08 | PM.PNORT ---
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 2 weeks s/p amnioexcel graft application in the wound clinic. Marked improvement in new granulation today. No signs of infection. Recommended repeat graft application today to expedite healing given his current oral chemotherapy has been held due to wound. See procedure note for details. Patient to keep dressing in place x3 days and then resume silver gel and tracy. Follow up in 1 week for reevaluation. (2) Lower extremity edema: Code(s): R60.0 - Localized edema Status: Inactive Assessment and Plan: Improvement with LE edema. Continue diruetics. Recommended elevation of LE. (3) Lung nodule: Code(s): R91.1 - Solitary pulmonary nodule Status: Acute Assessment and Plan: Patient with a history of lung cancer on oral chemotherapy trial drug prior to opening of wound bed. New CT scan results this Friday were reviewed with patient at [facility]. Per patient/, lung nodules with some growth since stopping oral chemo due to wound. Oncologist plans to begin new trial which should not interfere with wound healing. Subjective Subjective Date/Time Seen: 08/28/21 09:08 Interval history: 71 year old male returns today to [facility] wound clinic for reevaluation of the left ankle. 6 weeks, 1 days s/p debridement/graft application of the left lateral ankle wound and 2 weeks s/p amnioexcel graft application in the outpatient wound clinic setting. He has been performing dressing changes since Friday with silver gel/prismal. No new concerns today. Review of Systems Constitutional: Constitutional: Reports as per HPI and Reports no additional constitutional complaints Eyes: Eyes: Reports as per HPI and Reports no additional eye complaints ENT: Reports system reviewed and no additional complaints, except as documented and Reports as per HPI Cardiovascular: Cardiovascular: Reports as per HPI and Reports no additional cardiovascular complaints Respiratory: Respiratory: Reports as per HPI and Reports no additional respiratory complaints Gastrointestinal: Gastrointestinal: Reports as per HPI and Reports no additional gastrointestinal complaints Genitourinary: Genitourinary: Reports no additional male genitourinary complaints and Reports as per HPI Musculoskeletal: Musculoskeletal: Reports no additional musculoskeletal complaints, Reports as per HPI, Denies back pain and Reports arthralgias Integumentary/Breasts: Skin/Breast: Reports system reviewed and no additional complaints, except as docu and Reports as per HPI Neurologic: Reports system reviewed and no additional complaints, except as documented and Reports as per HPI Psychiatric: Psychiatric: Reports no additional psychiatric complaints and Reports as per HPI Endocrine: Endocrine: Reports no additional endocrine complaints and Reports as per HPI Hematologic/Lymphatic: Hematologic/Lymphatic: Reports no additional hematologic/lymphatic complaints and Reports as per HPI Allergic/Immunologic: Allergic/Immunologic: Reports no additional allergic/immunologic complaints and Reports as per HPI Exam Const: General: healthy appearing; No in distress or confusion Orientation/consciousness: oriented to person, oriented to place, oriented to time and No confusion HENMT: Head: normal to inspection, normocephalic and atraumatic Eyes: Conjunctivae: conjunctivae normal Sclera: sclerae normal Neck: Neck: supple and nontender Resp: Effort & Inspection: normal respiratory effort and no audible wheezes Cardio: Rhythm: regular rhythm Skin: General skin exam: no rashes or lesions noted Neuro: General: oriented to person, oriente
--- NOTE | 2021-09-04 08:34 | PM.PNORT ---
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 1 weeks s/p amnioexcel graft application in the wound clinic. Continued improvement in new granulation today, decrease in wound dimensions/depth. No signs of infection. Patient to continue daily dressing changes with silver gel/tracy. Follow up in 1 week for repeat graft application. (2) Lower extremity edema: Code(s): R60.0 - Localized edema Status: Inactive Assessment and Plan: Minimal LE edema. Continue diuretics. Recommended elevation of LE. (3) Lung nodule: Code(s): R91.1 - Solitary pulmonary nodule Status: Acute Assessment and Plan: Patient with a history of lung cancer on oral chemotherapy trial drug prior to opening of wound bed. New CT scan last week. Per patient/, lung nodules with some growth since stopping oral chemo due to wound. Oncologist plans to begin new trial which should not interfere with wound healing. Subjective Subjective Date/Time Seen: 09/04/21 08:34 Interval history: 71 year old male returns today to [facility] wound clinic for reevaluation of the left ankle. 7 weeks, 1 days s/p debridement/graft application of the left lateral ankle wound and 1 weeks s/p amnioexcel graft application in the outpatient wound clinic setting. He has been performing dressing changes since Friday with silver gel/prismal. No new concerns today. Review of Systems Constitutional: Constitutional: Reports as per HPI and Reports no additional constitutional complaints Eyes: Eyes: Reports as per HPI and Reports no additional eye complaints ENT: Reports system reviewed and no additional complaints, except as documented and Reports as per HPI Cardiovascular: Cardiovascular: Reports as per HPI and Reports no additional cardiovascular complaints Respiratory: Respiratory: Reports as per HPI and Reports no additional respiratory complaints Gastrointestinal: Gastrointestinal: Reports as per HPI and Reports no additional gastrointestinal complaints Genitourinary: Genitourinary: Reports no additional male genitourinary complaints and Reports as per HPI Musculoskeletal: Musculoskeletal: Reports no additional musculoskeletal complaints, Reports as per HPI, Denies back pain and Reports arthralgias Integumentary/Breasts: Skin/Breast: Reports system reviewed and no additional complaints, except as docu and Reports as per HPI Neurologic: Reports system reviewed and no additional complaints, except as documented and Reports as per HPI Psychiatric: Psychiatric: Reports no additional psychiatric complaints and Reports as per HPI Endocrine: Endocrine: Reports no additional endocrine complaints and Reports as per HPI Hematologic/Lymphatic: Hematologic/Lymphatic: Reports no additional hematologic/lymphatic complaints and Reports as per HPI Allergic/Immunologic: Allergic/Immunologic: Reports no additional allergic/immunologic complaints and Reports as per HPI Exam Const: General: healthy appearing; No in distress or confusion Orientation/consciousness: oriented to person, oriented to place, oriented to time and No confusion HENMT: Head: normal to inspection, normocephalic and atraumatic Eyes: Conjunctivae: conjunctivae normal Sclera: sclerae normal Neck: Neck: supple and nontender Resp: Effort & Inspection: normal respiratory effort and no audible wheezes Cardio: Rhythm: regular rhythm Skin: General skin exam: no rashes or lesions noted Neuro: General: oriented to person, oriented to place, oriented to time and No confusion Extrem: Right upper extremity: normal to inspection Left upper extremity: normal to inspection Right lower extremity: ankle Details: normal to ins
== END 2021-09-10 23:59 | disposition home or self-care (01) ==
LOC: ANHWOC 07:18
PROVIDERS: Visit Provider Nurse Practitioner Family
DX: L97.329 Non-pressure chronic ulcer of left ankle with unspecified severity (principal)
CPT/HCPCS: 15275; 29445; 99212; 99213; A9270; G0463; Q4137

== ENCOUNTER 2021-12-04 07:52 | Outpatient (RCR) | payer MEDICARE, OTHER, SELFPAY ==
[2021-09-11 00:06] VITALS: BMI 26.1
--- NOTE | 2021-09-11 08:41 | PM.PNORT ---
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 Patient is now 2 weeks status post graft application in the outpatient wound clinic. He has continued improvement in new granulation epithelium today. Wound bed edges with notable improvement. He does have some tenderness over the 5th metatarsal and mild erythema. Improvement with elevation noted. Recommended radiographs in the outpatient orthopedic clinic prior to departure today. Given good efficacy of improvement in wound bed with graft application, recommended repeat graft application today. Graft applied under sterile conditions in the left lateral ankle wound. Graft and covered with a Mepitel One and Xtrasorb dressing. Patient to keep dressing x3 days and continue with daily dressing changes with silver gel and Ana Maria. Follow-up in 1 week for re-evaluation and 2 weeks for repeat graft application. Reviewed activity restrictions. (2) Lower extremity edema: Code(s): R60.0 - Localized edema Status: Inactive Assessment and Plan: Minimal LE edema. Continue diuretics. Recommended elevation of LE. (3) Lung nodule: Code(s): R91.1 - Solitary pulmonary nodule Status: Acute Assessment and Plan: Patient with a history of lung cancer on oral chemotherapy trial drug prior to opening of wound bed. Per patient/, lung nodules with some growth since stopping oral chemo due to wound. Oncologist plans to begin new trial which should not interfere with wound healing. Patient also had a recent PET scan which revealed some protein around his heart per patient. He is scheduled to see a accounts receivable associate. Subjective Subjective Date/Time Seen: 09/11/21 08:41 Interval history: Eight weeks, 1 day status post surgical intervention by Dr. Powell. he is now 2 weeks status post amnioexcell graft application. He has been performing daily dressing changes at home with silver gel and Ana Maria. He reports having recently had a PET scan at [facility] which has revealed some protein around his heart. He is scheduled with the accounts receivable associate as well. He reports some new pain at the base of the 5th metatarsal. No new concerns regarding the wound. Review of Systems Constitutional: Constitutional: Reports as per HPI and Reports no additional constitutional complaints Eyes: Eyes: Reports as per HPI and Reports no additional eye complaints ENT: Reports system reviewed and no additional complaints, except as documented and Reports as per HPI Cardiovascular: Cardiovascular: Reports as per HPI and Reports no additional cardiovascular complaints Respiratory: Respiratory: Reports as per HPI and Reports no additional respiratory complaints Gastrointestinal: Gastrointestinal: Reports as per HPI and Reports no additional gastrointestinal complaints Genitourinary: Genitourinary: Reports no additional male genitourinary complaints and Reports as per HPI Musculoskeletal: Musculoskeletal: Reports no additional musculoskeletal complaints, Reports as per HPI, Denies back pain and Reports arthralgias Integumentary/Breasts: Skin/Breast: Reports system reviewed and no additional complaints, except as docu and Reports as per HPI Neurologic: Reports system reviewed and no additional complaints, except as documented and Reports as per HPI Psychiatric: Psychiatric: Reports no additional psychiatric complaints and Reports as per HPI Endocrine: Endocrine: Reports no additional endocrine complaints and Reports as per HPI Hematologic/Lymphatic: Hematologic/Lymphatic: Reports no additional hematologic/lymphatic complaints and Reports as per HPI Allergic/Immunologic: Allergic/Immunologic: Reports no additional allergic/immunologic comp
--- NOTE | 2021-09-18 09:05 | PM.PNORT ---
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 Patient is now 1 week status post graft application in the outpatient wound clinic. He has now had a total of 4 grafts in the outpatient setting. He has continued improvement in new granulation epithelium today. Wound bed edges with improvement. Depth with significant improvement as well. Slough at the distal aspect of the wound debrided, 100% red/pink wound bed remaining. Patient to continue daily dressing changes with tracy/silver gel daily. Follow up in 1 week for repeat graft application. (2) Lower extremity edema: Code(s): R60.0 - Localized edema Status: Inactive Assessment and Plan: Minimal LE edema. Continue diuretics. Recommended elevation of LE. (3) Lung nodule: Code(s): R91.1 - Solitary pulmonary nodule Status: Acute Assessment and Plan: Patient with a history of lung cancer on oral chemotherapy trial drug prior to opening of wound bed. Per patient/, lung nodules with some growth since stopping oral chemo due to wound. Oncologist plans to begin new trial which should not interfere with wound healing. PET scan last Friday. Repeat PET scan tomorrow. Subjective Subjective Date/Time Seen: 09/18/21 09:05 Interval history: 71-year-old male presents to the [place] wound clinic today 9 weeks, 1 day status post left ankle debridement and graft application. Patient has been undergoing weekly dressing changes and intermittent graft applications in the outpatient wound clinic. He is now 1 week status post Amnioexcel graft application. Last week he noted to have some increased erythema at the base of the wound on the lateral ankle. He was sent to the outpatient orthopedic clinic for radiographs which revealed no evidence of osteomyelitis. The patient denies fever, chills, night sweats, nausea, vomiting or diarrhea in the interim. He reports improvement in the erythema and pain. He has been tolerating daily dressing changes well. Review of Systems Constitutional: Constitutional: Reports as per HPI and Reports no additional constitutional complaints Eyes: Eyes: Reports as per HPI and Reports no additional eye complaints ENT: Reports system reviewed and no additional complaints, except as documented and Reports as per HPI Cardiovascular: Cardiovascular: Reports as per HPI and Reports no additional cardiovascular complaints Respiratory: Respiratory: Reports as per HPI and Reports no additional respiratory complaints Gastrointestinal: Gastrointestinal: Reports as per HPI and Reports no additional gastrointestinal complaints Genitourinary: Genitourinary: Reports no additional male genitourinary complaints and Reports as per HPI Musculoskeletal: Musculoskeletal: Reports no additional musculoskeletal complaints, Reports as per HPI, Denies back pain and Reports arthralgias Integumentary/Breasts: Skin/Breast: Reports system reviewed and no additional complaints, except as docu and Reports as per HPI Neurologic: Reports system reviewed and no additional complaints, except as documented and Reports as per HPI Psychiatric: Psychiatric: Reports no additional psychiatric complaints and Reports as per HPI Endocrine: Endocrine: Reports no additional endocrine complaints and Reports as per HPI Hematologic/Lymphatic: Hematologic/Lymphatic: Reports no additional hematologic/lymphatic complaints and Reports as per HPI Allergic/Immunologic: Allergic/Immunologic: Reports no additional allergic/immunologic complaints and Reports as per HPI Exam Const: General: healthy appearing; No in distress or confusion Orientation/consciousness: oriented to person, oriented to place, oriented to t
--- NOTE | 2021-09-25 08:36 | PM.PNORT ---
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 Patient is now 2 week status post graft application in the outpatient wound clinic. He has now had a total of 4 grafts in the outpatient setting. He has continued improvement in new granulation epithelium today. Wound bed edges with improvement. Depth with significant improvement as well. Slough at the distal aspect of the wound debrided, 100% red/pink wound bed remaining. repeat graft application Patient to continue daily dressing changes with tracy/silver gel daily. indicated for wound VAC to assist with healing closure. Check authorization (2) Lower extremity edema: Code(s): R60.0 - Localized edema Status: Inactive Assessment and Plan: Minimal LE edema. Continue diuretics. Recommended elevation of LE. (3) Lung nodule: Code(s): R91.1 - Solitary pulmonary nodule Status: Acute Assessment and Plan: Patient with a history of lung cancer on oral chemotherapy trial drug prior to opening of wound bed. Per patient/, lung nodules with some growth since stopping oral chemo due to wound. Oncologist plans to begin new trial which should not interfere with wound healing. Repeat PET scan last week showed active tumor. Subjective Subjective Date/Time Seen: 09/25/21 08:36 71-year-old male presents to the [place] wound clinic today 10 weeks, 1 day status post left ankle debridement and graft application. Patient has been undergoing weekly dressing changes and intermittent graft applications in the outpatient wound clinic. He is now 2 weeks status post Amnioexcel graft application. The patient denies fever, chills, night sweats, nausea, vomiting or diarrhea in the interim. He reports improvement in the erythema and pain. He has been tolerating daily dressing changes well. Exam Const: General: healthy appearing; No in distress or confusion Orientation/consciousness: oriented to person, oriented to place, oriented to time and No confusion HENMT: Head: normal to inspection, normocephalic and atraumatic Eyes: Conjunctivae: conjunctivae normal Sclera: sclerae normal Neck: Neck: supple and nontender Resp: Effort & Inspection: normal respiratory effort and no audible wheezes Cardio: Rhythm: regular rhythm Skin: General skin exam: no rashes or lesions noted Neuro: General: oriented to person, oriented to place, oriented to time and No confusion Extrem: Right upper extremity: normal to inspection Left upper extremity: normal to inspection Right lower extremity: ankle Details: normal to inspection, edema Details: 1+, abnormal ROM Details: with range as follows (ankle dorsiflexion -10 degrees, plantar flexion 40?, inversion 15?, eversion 15?) and other ( good stability all directions); no tenderness, no swelling and no ecchymosis and foot Details: abnormal to inspection, abnormal ROM of toe ( hallux MTP dorsiflexion 40, plantar flexion 20?), vascular exam Details: dorsalis pedis pulse present and normal capillary refill, tendon exam Details: active flexion abnormal and active extension abnormal, motor-sensory exam Details: two point discrimination abnormal Location: in all toes and light-touch abnormal Location: in all toes and other (Hallux metatarsophalangeal motion 20? dorsiflexion/10? plantar flexion) Left lower extremity: ankle Details: abnormal to inspection Details: other ( Anterolateral ankle ulcer Covered with graft. Graft appears to be taking.), tenderness Location: anterolaterally and posteriorly (Posterior subtalar joint and achilles tendon), swelling Details: diffusely ( ankle and hindfoot, mild erythema anterior above the ankle joint), pitting edema Details: 1+ and abnormal
--- NOTE | 2021-09-25 08:40 | W.PM.PROC2 ---
Procedure Note - Detailed Date of Procedure 09/25/21 Pre-op Diagnosis left ankle wound Post-op Diagnosis same Procedure Performed debridement left ankle ulcer skin, subcutaneous tissue 4 cm. Application amniotic tissue graft Surgeon Devonte Powell MD Anesthesia none Indications 71-year-old with left ankle ulcer. Slough noted. Indicated for debridement and application graft. Description of Procedure Patient verified. Site of the surgery confirmed. Informed consent given. Left ankle prepped with alcohol prep solution. Fifteen blade used to sharply excise skin, subcutaneous tissue and any devitalized tissue from wound which measured 4 cm in length. Hemostasis controlled with pressure. Application amniotic tissue graft. Sterile dressing applied Implants amnio XL 2 x 3 cm. Tissue ID BP 10/18 17990. Expiration 05/22/25 Estimated Blood Loss 1 Urine Output 0 Complications None Condition stable Disposition other ( home with self-care)
--- NOTE | 2021-10-02 10:17 | PM.PNORT ---
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 Patient is now 1 week status post graft application in the outpatient wound clinic. His wound continues to show good improvement with graft applications. Recommended wound VAC application today to expedite healing given his inability to resume chemotherapy treatment until his wound has been healed. Wound VAC applied to the left lateral ankle wound. Patient to follow-up in 1 week for re-evaluation repeat graft application. Likely repeat wound VAC application over graft at that time as well. Wound VAC instructions given to patient and thoroughly prior to departure. No questions at this time. (2) Lower extremity edema: Code(s): R60.0 - Localized edema Status: Inactive Assessment and Plan: Minimal LE edema. Continue diuretics. Recommended elevation of LE. (3) Lung nodule: Code(s): R91.1 - Solitary pulmonary nodule Status: Acute Assessment and Plan: Patient with a history of lung cancer on oral chemotherapy trial drug prior to opening of wound bed. Per patient/, lung nodules with some growth since stopping oral chemo due to wound. Oncologist plans to begin new trial which should not interfere with wound healing. Repeat PET scan last week showed active tumor. Subjective Subjective Date/Time Seen: 10/02/21 0800 Interval history: 71-year-old male presents to the [place] wound clinic today 110 weeks, 1 day status post left ankle debridement and graft application. Patient has been undergoing weekly dressing changes and intermittent graft applications in the outpatient wound clinic. He is now 1 week status post Amnioexcel graft application. The patient denies fever, chills, night sweats, nausea, vomiting or diarrhea in the interim. He reports improvement in the erythema and pain. He has been tolerating daily dressing changes well. Review of Systems Constitutional: Constitutional: Reports as per HPI and Reports no additional constitutional complaints Eyes: Eyes: Reports as per HPI and Reports no additional eye complaints ENT: Reports system reviewed and no additional complaints, except as documented and Reports as per HPI Cardiovascular: Cardiovascular: Reports as per HPI and Reports no additional cardiovascular complaints Respiratory: Respiratory: Reports as per HPI and Reports no additional respiratory complaints Gastrointestinal: Gastrointestinal: Reports as per HPI and Reports no additional gastrointestinal complaints Genitourinary: Genitourinary: Reports no additional male genitourinary complaints and Reports as per HPI Musculoskeletal: Musculoskeletal: Reports no additional musculoskeletal complaints, Reports as per HPI, Denies back pain and Reports arthralgias Integumentary/Breasts: Skin/Breast: Reports system reviewed and no additional complaints, except as docu and Reports as per HPI Neurologic: Reports system reviewed and no additional complaints, except as documented and Reports as per HPI Psychiatric: Psychiatric: Reports no additional psychiatric complaints and Reports as per HPI Endocrine: Endocrine: Reports no additional endocrine complaints and Reports as per HPI Hematologic/Lymphatic: Hematologic/Lymphatic: Reports no additional hematologic/lymphatic complaints and Reports as per HPI Allergic/Immunologic: Allergic/Immunologic: Reports no additional allergic/immunologic complaints and Reports as per HPI Exam Const: General: healthy appearing; No in distress or confusion Orientation/consciousness: oriented to person, oriented to place, oriented to time and No confusion HENMT: Head: normal to inspection, normocephalic and atraumatic Eyes: Conjunct
--- NOTE | 2021-10-09 08:42 | PM.PNORT ---
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 Patient is now 1 week status post wound VAC dressing application. His wound VAC was functioning well until Friday when he noticed a small older. He did remove the dressing and begin daily dressing changes. Wound with continued improvement in dimensions today. He has been indicated for repeat graft application. Graft applied under sterile conditions. Covered with an Adaptic dressing 4 graft protection and wound VAC dressing reapplied. Patient will follow-up in 1 week for re-evaluation and removal of wound VAC dressing. (2) Lower extremity edema: Code(s): R60.0 - Localized edema Status: Inactive Assessment and Plan: Minimal LE edema. Continue diuretics. Recommended elevation of LE. (3) Lung nodule: Code(s): R91.1 - Solitary pulmonary nodule Status: Acute Assessment and Plan: Patient with a history of lung cancer on oral chemotherapy trial drug prior to opening of wound bed. Per patient/, lung nodules with some growth since stopping oral chemo due to wound. Oncologist plans to begin new trial which should not interfere with wound healing. Repeat PET scan showed active tumor. Subjective Subjective Date/Time Seen: 10/09/21 08:42 Principal diagnosis: Left ankle wound. Interval history: 71-year-old male presents to the [place] wound clinic today 12 weeks, 1 day status post left ankle debridement and graft application. Patient has been undergoing weekly dressing changes and intermittent graft applications in the outpatient wound clinic. He is now 2 weeks status post Amnioexcel graft application and 1 week s/p wound VAC dressing application. The patient denies fever, chills, night sweats, nausea, vomiting or diarrhea in the interim. Review of Systems Constitutional: Constitutional: Reports as per HPI and Reports no additional constitutional complaints Eyes: Eyes: Reports as per HPI and Reports no additional eye complaints ENT: Reports system reviewed and no additional complaints, except as documented and Reports as per HPI Cardiovascular: Cardiovascular: Reports as per HPI and Reports no additional cardiovascular complaints Respiratory: Respiratory: Reports as per HPI and Reports no additional respiratory complaints Gastrointestinal: Gastrointestinal: Reports as per HPI and Reports no additional gastrointestinal complaints Genitourinary: Genitourinary: Reports no additional male genitourinary complaints and Reports as per HPI Musculoskeletal: Musculoskeletal: Reports no additional musculoskeletal complaints, Reports as per HPI, Denies back pain and Reports arthralgias Integumentary/Breasts: Skin/Breast: Reports system reviewed and no additional complaints, except as docu and Reports as per HPI Neurologic: Reports system reviewed and no additional complaints, except as documented and Reports as per HPI Psychiatric: Psychiatric: Reports no additional psychiatric complaints and Reports as per HPI Endocrine: Endocrine: Reports no additional endocrine complaints and Reports as per HPI Hematologic/Lymphatic: Hematologic/Lymphatic: Reports no additional hematologic/lymphatic complaints and Reports as per HPI Allergic/Immunologic: Allergic/Immunologic: Reports no additional allergic/immunologic complaints and Reports as per HPI Exam Const: General: healthy appearing; No in distress or confusion Orientation/consciousness: oriented to person, oriented to place, oriented to time and No confusion HENMT: Head: normal to inspection, normocephalic and atraumatic Eyes: Conjunctivae: conjunctivae normal Sclera: sclerae normal Neck: Neck: supple and nontender Resp: Eff
--- NOTE | 2021-10-16 09:55 | PM.IMHP ---
H&P: HPI History of Present Illness Date/Time: 10/16/21 09:55 Chief Complaint: Lateral Ankle Wound Narrative: 71-year-old male follows up in the [facility] wound clinic status post hospitalization for reevaluation of left lateral ankle wound. He has been undergoing biweekly graft applications and underwent 2 wound VAC dressings as well. He reports leaking of the wound VAC over the weekend and resumed daily dressing changes. No new concerns today. Review of Systems Constitutional: Constitutional: Reports as per HPI and Reports no additional constitutional complaints Eyes: Eyes: Reports as per HPI and Reports no additional eye complaints ENT: Reports system reviewed and no additional complaints, except as documented and Reports as per HPI Cardiovascular: Cardiovascular: Reports as per HPI and Reports no additional cardiovascular complaints Respiratory: Respiratory: Reports as per HPI and Reports no additional respiratory complaints Gastrointestinal: Gastrointestinal: Reports as per HPI and Reports no additional gastrointestinal complaints Genitourinary: Genitourinary: Reports no additional male genitourinary complaints and Reports as per HPI Musculoskeletal: Musculoskeletal: Reports no additional musculoskeletal complaints, Reports as per HPI, Denies back pain and Reports arthralgias Integumentary/Breasts: Skin/Breast: Reports system reviewed and no additional complaints, except as docu and Reports as per HPI Neurologic: Reports system reviewed and no additional complaints, except as documented and Reports as per HPI Psychiatric: Psychiatric: Reports no additional psychiatric complaints and Reports as per HPI Endocrine: Endocrine: Reports no additional endocrine complaints and Reports as per HPI Hematologic/Lymphatic: Hematologic/Lymphatic: Reports no additional hematologic/lymphatic complaints and Reports as per HPI Allergic/Immunologic: Allergic/Immunologic: Reports no additional allergic/immunologic complaints and Reports as per HPI [facility] Past Medical History Medical History Adhesive capsulitis Arthritis Back pain with history of spinal surgery 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 DVT (deep venous thrombosis) H/O malignant neoplasm of thyroid Hyperlipidemia Hypertension Hypothyroid Irregular heartbeat Left shoulder pain Lower extremity edema Lung nodule Neuropathic ulcer of ankle Peripheral arterial disease Skin ulcer of ankle, limited to breakdown of skin 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 Vision abnormalities Surgical History Surgical History History of thyroidectomy Family History Family History Mother Diabetes mellitus Brain aneurysm Father Heart disease Social History Social History Alcohol intake: current Substance use: never Substance use type: does not use Additional living arrangements comments: [facility] Gender identity (if verbalized by the patient): Male Spiritual care concerns: No Meds Home Medications and Allergies Home Medications Medication Instructions Recorded Confirmed Type metoprolol succinate 50 mg PO QAM 08/06/19 07/16/21 History chlorthalidone 25 mg PO QAM 05/11/21 07/11/21 History levothyroxine [Synthroid] 137 mcg PO QAM 05/11/21 07/16/21 History losartan 100 mg PO QAM 05/11/21 07/11/21 History pravastatin 40 mg PO DAILY 05/11/21 07/11/21 History Eliquis 5 mg PO BID 06/26/21 07/11/21 History One-A-Day Men's Multivitamin 1 tablet PO DAILY 06/26/21 07/11/21 History cholecalciferol (vitamin D3) 50 mcg PO DAILY 06/26/21 07/11/21 History [Vitamin D3] Santyl 1 applic TOPICAL QAM #30 g 06/29/21 07/11/21 Rx ciprofloxacin HCl 500 mg PO Q12HR #56 tablet 07/16/21 Rx clindamycin HCl 300 mg PO Q8HR #84 cap 07/16/21
--- NOTE | 2021-10-23 08:24 | PM.IMHP ---
H&P: HPI History of Present Illness Date/Time: 10/23/21 08:24 Chief Complaint: Left Lateral Ankle Wound Narrative: 71-year-old male follows up in the [place] wound clinic for reevaluation of left lateral ankle wound. He has been undergoing biweekly graft applications. He failed to improve with LAMAR wound VAC dressing changes due to increased drainage and activity level. We transitioned back to daily dressing changes last week. No new concerns today. Review of Systems Constitutional: Constitutional: Reports as per HPI and Reports no additional constitutional complaints Eyes: Eyes: Reports as per HPI and Reports no additional eye complaints ENT: Reports system reviewed and no additional complaints, except as documented and Reports as per HPI Cardiovascular: Cardiovascular: Reports as per HPI and Reports no additional cardiovascular complaints Respiratory: Respiratory: Reports as per HPI and Reports no additional respiratory complaints Gastrointestinal: Gastrointestinal: Reports as per HPI and Reports no additional gastrointestinal complaints Genitourinary: Genitourinary: Reports no additional male genitourinary complaints and Reports as per HPI Musculoskeletal: Musculoskeletal: Reports no additional musculoskeletal complaints, Reports as per HPI, Denies back pain and Reports arthralgias Integumentary/Breasts: Skin/Breast: Reports system reviewed and no additional complaints, except as docu and Reports as per HPI Neurologic: Reports system reviewed and no additional complaints, except as documented and Reports as per HPI Psychiatric: Psychiatric: Reports no additional psychiatric complaints and Reports as per HPI Endocrine: Endocrine: Reports no additional endocrine complaints and Reports as per HPI Hematologic/Lymphatic: Hematologic/Lymphatic: Reports no additional hematologic/lymphatic complaints and Reports as per HPI Allergic/Immunologic: Allergic/Immunologic: Reports no additional allergic/immunologic complaints and Reports as per HPI [facility] Past Medical History Medical History Adhesive capsulitis Arthritis Back pain with history of spinal surgery 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 DVT (deep venous thrombosis) H/O malignant neoplasm of thyroid Hyperlipidemia Hypertension Hypothyroid Irregular heartbeat Left shoulder pain Lower extremity edema Lung nodule Neuropathic ulcer of ankle Peripheral arterial disease Skin ulcer of ankle, limited to breakdown of skin 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 Vision abnormalities Surgical History Surgical History History of thyroidectomy Family History Family History Mother Diabetes mellitus Brain aneurysm Father Heart disease Social History Social History Alcohol intake: current Substance use: never Substance use type: does not use Additional living arrangements comments: [facility] Gender identity (if verbalized by the patient): Male Spiritual care concerns: No Meds Home Medications and Allergies Home Medications Medication Instructions Recorded Confirmed Type metoprolol succinate 50 mg PO QAM 08/06/19 07/16/21 History chlorthalidone 25 mg PO QAM 05/11/21 07/11/21 History levothyroxine [Synthroid] 137 mcg PO QAM 05/11/21 07/16/21 History losartan 100 mg PO QAM 05/11/21 07/11/21 History pravastatin 40 mg PO DAILY 05/11/21 07/11/21 History Eliquis 5 mg PO BID 06/26/21 07/11/21 History One-A-Day Men's Multivitamin 1 tablet PO DAILY 06/26/21 07/11/21 History cholecalciferol (vitamin D3) 50 mcg PO DAILY 06/26/21 07/11/21 History [Vitamin D3] Santyl 1 applic TOPICAL QAM #30 g 06/29/21 07/11/21 Rx ciprofloxacin HCl 500 mg PO Q12HR #56 tablet 07/16/21 Rx clindamycin HCl 300 mg PO Q8HR #84 cap
--- NOTE | 2021-11-06 14:40 | PM.PNORT ---
Progress Note: A&P Assessment and Plan (1) Neuropathic ulcer of ankle: Code(s): L97.309 - Non-pressure chronic ulcer of unspecified ankle with unspecified severity Status: Acute Assessment and Plan: 3 months status post graft application, debridement and removal foreign body from the left leg in the OR by Dr. Powell. Patient is now 2 weeks s/p graft application. Patient has been undergoing daily dressing changes which he preforms independently with tracy, silver gel and covering dry. He has responded well to [employer] graft applications with continued improvement in dimensions. He has been indicated for repeat graft application today. Graft applied under sterile conditions to the left lateral ankle wound base, tolerated well. Patient to keep dressing in place x48 hours and then resume daily dressing changes. Follow up in 2 weeks for reevaluation and possible repeat graft application pending wound dimensions/appearance. Reviewed signs/symptoms of infection to report to office or ED immediately. (2) Lower extremity edema: Code(s): R60.0 - Localized edema Status: Inactive Assessment and Plan: Minimal LE edema. Continue diuretics. Recommended elevation of LE. (3) Lung nodule: Code(s): R91.1 - Solitary pulmonary nodule Status: Acute Assessment and Plan: Patient with a history of lung cancer on oral chemotherapy trial drug prior to opening of wound bed. Per patient/, lung nodules with some growth since stopping oral chemo due to wound. Oncologist plans to begin new trial which should not interfere with wound healing. Repeat PET scan showed active tumor. Subjective Subjective Date/Time Seen: 11/06/21 0800 Interval history: Patient returns to the [place] wound clinic today 3 months status post initial surgical debridement and graft application. He returns today 2 weeks status post outpatient graft application. No new concerns today. Patient reports improvement in wound bed. Review of Systems Constitutional: Constitutional: Reports as per HPI and Reports no additional constitutional complaints Eyes: Eyes: Reports as per HPI and Reports no additional eye complaints ENT: Reports system reviewed and no additional complaints, except as documented and Reports as per HPI Cardiovascular: Cardiovascular: Reports as per HPI and Reports no additional cardiovascular complaints Respiratory: Respiratory: Reports as per HPI and Reports no additional respiratory complaints Gastrointestinal: Gastrointestinal: Reports as per HPI and Reports no additional gastrointestinal complaints Genitourinary: Genitourinary: Reports no additional male genitourinary complaints and Reports as per HPI Musculoskeletal: Musculoskeletal: Reports no additional musculoskeletal complaints, Reports as per HPI, Denies back pain and Reports arthralgias Integumentary/Breasts: Skin/Breast: Reports system reviewed and no additional complaints, except as docu and Reports as per HPI Neurologic: Reports system reviewed and no additional complaints, except as documented and Reports as per HPI Psychiatric: Psychiatric: Reports no additional psychiatric complaints and Reports as per HPI Endocrine: Endocrine: Reports no additional endocrine complaints and Reports as per HPI Hematologic/Lymphatic: Hematologic/Lymphatic: Reports no additional hematologic/lymphatic complaints and Reports as per HPI Allergic/Immunologic: Allergic/Immunologic: Reports no additional allergic/immunologic complaints and Reports as per HPI Exam Const: General: healthy appearing; No in distress or confusion Orientation/consciousness: oriented to person, oriented to place, oriented to time and No confusion HENMT: Head: normal to inspection, normocephalic and atraumatic Eyes: Conjunctivae: conjunctivae normal Sclera: sclerae normal Neck: Neck: supple and nontender Resp: Effort & Inspection: normal respiratory effort and no audible w
--- NOTE | 2021-11-20 08:44 | PM.IMHP ---
H&P: HPI History of Present Illness Date/Time: 11/20/21 08:44 Chief Complaint: left lateral ankle wound Narrative: 71-year-old male follows up in the [place] wound clinic for reevaluation of left lateral ankle wound. He has been undergoing biweekly graft applications. No new concerns today. Review of Systems Constitutional: Constitutional: Reports as per HPI and Reports no additional constitutional complaints Eyes: Eyes: Reports as per HPI and Reports no additional eye complaints ENT: Reports system reviewed and no additional complaints, except as documented and Reports as per HPI Cardiovascular: Cardiovascular: Reports as per HPI and Reports no additional cardiovascular complaints Respiratory: Respiratory: Reports as per HPI and Reports no additional respiratory complaints Gastrointestinal: Gastrointestinal: Reports as per HPI and Reports no additional gastrointestinal complaints Genitourinary: Genitourinary: Reports no additional male genitourinary complaints and Reports as per HPI Musculoskeletal: Musculoskeletal: Reports no additional musculoskeletal complaints, Reports as per HPI, Denies back pain and Reports arthralgias Integumentary/Breasts: Skin/Breast: Reports system reviewed and no additional complaints, except as docu and Reports as per HPI Neurologic: Reports system reviewed and no additional complaints, except as documented and Reports as per HPI Psychiatric: Psychiatric: Reports no additional psychiatric complaints and Reports as per HPI Endocrine: Endocrine: Reports no additional endocrine complaints and Reports as per HPI Hematologic/Lymphatic: Hematologic/Lymphatic: Reports no additional hematologic/lymphatic complaints and Reports as per HPI Allergic/Immunologic: Allergic/Immunologic: Reports no additional allergic/immunologic complaints and Reports as per HPI PMFSH Past Medical History Medical History Adhesive capsulitis Arthritis Back pain with history of spinal surgery 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 DVT (deep venous thrombosis) H/O malignant neoplasm of thyroid Hyperlipidemia Hypertension Hypothyroid Irregular heartbeat Left shoulder pain Lower extremity edema Lung nodule Neuropathic ulcer of ankle Peripheral arterial disease Skin ulcer of ankle, limited to breakdown of skin 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 Vision abnormalities Surgical History Surgical History History of thyroidectomy Family History Family History Mother Diabetes mellitus Brain aneurysm Father Heart disease Social History Social History Alcohol intake: current Substance use: never Substance use type: does not use Additional living arrangements comments: SPOUSE Gender identity (if verbalized by the patient): Male Spiritual care concerns: No Meds Home Medications and Allergies Home Medications Medication Instructions Recorded Confirmed Type metoprolol succinate 50 mg PO QAM 08/06/19 07/16/21 History chlorthalidone 25 mg PO QAM 05/11/21 07/11/21 History levothyroxine [Synthroid] 137 mcg PO QAM 05/11/21 07/16/21 History losartan 100 mg PO QAM 05/11/21 07/11/21 History pravastatin 40 mg PO DAILY 05/11/21 07/11/21 History Eliquis 5 mg PO BID 06/26/21 07/11/21 History One-A-Day Men's Multivitamin 1 tablet PO DAILY 06/26/21 07/11/21 History cholecalciferol (vitamin D3) 50 mcg PO DAILY 06/26/21 07/11/21 History [Vitamin D3] Santyl 1 applic TOPICAL QAM #30 g 06/29/21 07/11/21 Rx ciprofloxacin HCl 500 mg PO Q12HR #56 tablet 07/16/21 Rx clindamycin HCl 300 mg PO Q8HR #84 cap 07/16/21 Rx hydrocodone-acetaminophen 1 tablet PO Q4-6H PRN #30 tablet 07/16/21 Rx Allergies Allergy/AdvReac Type Severity Reaction Status Date / Time propox
--- NOTE | 2021-12-04 08:23 | PM.IMHP ---
H&P: HPI History of Present Illness Date/Time: 12/04/21 08:23 Chief Complaint: Left Lateral Ankle Wound Narrative: 71-year-old male follows up in the [place] wound clinic for reevaluation of left lateral ankle wound. No new concerns today. Feels wound is 100% improved. Review of Systems Constitutional: Constitutional: Reports as per HPI and Reports no additional constitutional complaints Eyes: Eyes: Reports as per HPI and Reports no additional eye complaints ENT: Reports system reviewed and no additional complaints, except as documented and Reports as per HPI Cardiovascular: Cardiovascular: Reports as per HPI and Reports no additional cardiovascular complaints Respiratory: Respiratory: Reports as per HPI and Reports no additional respiratory complaints Gastrointestinal: Gastrointestinal: Reports as per HPI and Reports no additional gastrointestinal complaints Genitourinary: Genitourinary: Reports no additional male genitourinary complaints and Reports as per HPI Musculoskeletal: Musculoskeletal: Reports no additional musculoskeletal complaints, Reports as per HPI, Denies back pain and Reports arthralgias Integumentary/Breasts: Skin/Breast: Reports system reviewed and no additional complaints, except as docu and Reports as per HPI Neurologic: Reports system reviewed and no additional complaints, except as documented and Reports as per HPI Psychiatric: Psychiatric: Reports no additional psychiatric complaints and Reports as per HPI Endocrine: Endocrine: Reports no additional endocrine complaints and Reports as per HPI Hematologic/Lymphatic: Hematologic/Lymphatic: Reports no additional hematologic/lymphatic complaints and Reports as per HPI Allergic/Immunologic: Allergic/Immunologic: Reports no additional allergic/immunologic complaints and Reports as per HPI PMFSH Past Medical History Medical History Adhesive capsulitis Arthritis Back pain with history of spinal surgery 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 DVT (deep venous thrombosis) H/O malignant neoplasm of thyroid Hyperlipidemia Hypertension Hypothyroid Irregular heartbeat Left shoulder pain Lower extremity edema Lung nodule Neuropathic ulcer of ankle Peripheral arterial disease Skin ulcer of ankle, limited to breakdown of skin 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 Vision abnormalities Surgical History Surgical History History of thyroidectomy Family History Family History Mother Diabetes mellitus Brain aneurysm Father Heart disease Social History Social History Alcohol intake: current Substance use: never Substance use type: does not use Additional living arrangements comments: SPOUSE Gender identity (if verbalized by the patient): Male Spiritual care concerns: No Meds Home Medications and Allergies Home Medications Medication Instructions Recorded Confirmed Type metoprolol succinate 50 mg PO QAM 08/06/19 07/16/21 History chlorthalidone 25 mg PO QAM 05/11/21 07/11/21 History levothyroxine [Synthroid] 137 mcg PO QAM 05/11/21 07/16/21 History losartan 100 mg PO QAM 05/11/21 07/11/21 History pravastatin 40 mg PO DAILY 05/11/21 07/11/21 History Eliquis 5 mg PO BID 06/26/21 07/11/21 History One-A-Day Men's Multivitamin 1 tablet PO DAILY 06/26/21 07/11/21 History cholecalciferol (vitamin D3) 50 mcg PO DAILY 06/26/21 07/11/21 History [Vitamin D3] Santyl 1 applic TOPICAL QAM #30 g 06/29/21 07/11/21 Rx ciprofloxacin HCl 500 mg PO Q12HR #56 tablet 07/16/21 Rx clindamycin HCl 300 mg PO Q8HR #84 cap 07/16/21 Rx hydrocodone-acetaminophen 1 tablet PO Q4-6H PRN #30 tablet 07/16/21 Rx Allergies Allergy/AdvReac Type Severity Reaction Status Date / Time propoxyphene Allergy Inter
== END 2021-12-10 23:59 | disposition home or self-care (01) ==
LOC: ANHWOC 07:52
PROVIDERS: Visit Provider Nurse Practitioner Family
DX: L97.329 Non-pressure chronic ulcer of left ankle with unspecified severity (principal)
CPT/HCPCS: 15271; 15275; 97605; 99211; 99212; 99213; G0463; Q4137

== ENCOUNTER 2022-07-19 07:30 | Outpatient (RCR) | payer MEDICARE, OTHER, SELFPAY ==
--- NOTE | 2022-05-17 08:18 | PM.IMHP ---
H&P: HPI History of Present Illness Date/Time: 05/17/22 08:18 Chief Complaint: Left great toe wound Narrative: 71-year-old male well known to the [facility] for chronic left lower extremity wounds. Patient does have a history of shrapnel in the left lower extremity and peroneal nerve palsy. He reports a 1 week onset of a left lateral great toe wound. He reports that initially began as a blister. He denies fever, chills, night sweats, nausea, vomiting or diarrhea. He has not been performing any dressing changes at this time. He presents today for 1st evaluation. Review of Systems Review of Systems: All systems reviewed & are unremarkable except as noted in HPI and below PMFSH Past Medical History Medical History (Updated 05/17/22 @ 09:28 by KENNETH Bain) Adhesive capsulitis Arthritis Arthritis of left subtalar joint Back pain with history of spinal surgery Deep vein thrombosis of right lower extremity Degenerative joint disease, ankle, foot, toe DJD of shoulder DVT (deep venous thrombosis) Foot drop, left H/O malignant neoplasm of thyroid Hyperlipidemia Hypertension Hypothyroid Irregular heartbeat Left shoulder pain Lower extremity edema Lung nodule Neuropathic ulcer of ankle Peripheral arterial disease Skin ulcer of ankle, limited to breakdown of skin Skin ulcer of toe 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 Vision abnormalities Surgical History Surgical History History of thyroidectomy Family History Family History Mother Diabetes mellitus Brain aneurysm Father Heart disease Social History Social History Alcohol intake: current Substance use: never Substance use type: does not use Additional living arrangements comments: SPOUSE Gender identity (if verbalized by the patient): Male Spiritual care concerns: No Meds Home Medications and Allergies Home Medications Medication Instructions Recorded Confirmed Type metoprolol succinate 50 mg 50 mg PO QAM 08/06/19 02/12/22 History tablet,extended release 24 hr chlorthalidone 25 mg tablet 25 mg PO QAM 05/11/21 02/12/22 History levothyroxine 137 mcg tablet 137 mcg PO QAM 05/11/21 02/12/22 History (Synthroid) losartan 100 mg tablet 100 mg PO QAM 05/11/21 02/12/22 History pravastatin 40 mg tablet 40 mg PO DAILY 05/11/21 02/12/22 History apixaban 5 mg tablet (Eliquis) 5 mg PO BID 06/26/21 02/12/22 History cholecalciferol (vitamin D3) 25 50 mcg PO DAILY 06/26/21 02/12/22 History mcg (1,000 unit) tablet (Vitamin D3) [id number] acid 400 1 tablet PO DAILY 06/26/21 02/12/22 History mcg-vit K 20 mcg-lycop 300 mcg tablet (One-A-Day Men's Multivitamin) collagenase clostridium histo. 250 1 applic topical QAM #30 grams 06/29/21 02/12/22 Rx unit/gram topical ointment (Santyl) ciprofloxacin HCl 500 mg tablet 500 mg PO Q12HR #56 tabs 07/16/21 02/12/22 Rx clindamycin HCl 150 mg capsule 300 mg PO Q8HR #84 caps 07/16/21 02/12/22 Rx hydrocodone 7.5 mg-acetaminophen 1 tablet PO Q4-6H PRN Pain Rated 07/16/21 02/12/22 Rx 325 mg tablet 7-10 #30 tabs Allergies Allergy/AdvReac Type Severity Reaction Status Date / Time propoxyphene Allergy Intermediate Swelling Verified 05/17/22 09:09 Exam Const: General: healthy appearing; No in distress or confusion Orientation/consciousness: oriented to person, oriented to place, oriented to time and No confusion HENMT: Head: normal to inspection, normocephalic and atraumatic Eyes: Conjunctivae: conjunctivae normal Sclera: sclerae normal Neck: Neck: supple and nontender Resp: Effort & Inspection: normal respiratory effort and no audible wheezes Cardio: Rhythm: regular rhythm Skin: General skin exam: no rashes or lesions noted Neuro: General: oriented to pe
[2022-05-17 08:59] VITALS: BMI 26.1
--- NOTE | 2022-05-24 08:41 | PM.IMHP ---
H&P: HPI History of Present Illness Date/Time: 05/24/22 08:41 Chief Complaint: Left great toe wound Narrative: Follow up in the [facility] wound clinic today for reevaluation. Patient with a history of shrapnel in the left lower extremity and peroneal nerve palsy. 2 week onset of a left lateral great toe wound. Tolerating dressing changes well. No new concerns today. Mild pain great toe. Review of Systems Review of Systems: All systems reviewed & are unremarkable except as noted in HPI and below [facility] Past Medical History Medical History Adhesive capsulitis Arthritis Arthritis of left subtalar joint Back pain with history of spinal surgery Deep vein thrombosis of right lower extremity Degenerative joint disease, ankle, foot, toe DJD of shoulder DVT (deep venous thrombosis) Foot drop, left H/O malignant neoplasm of thyroid Hyperlipidemia Hypertension Hypothyroid Irregular heartbeat Left shoulder pain Lower extremity edema Lung nodule Neuropathic ulcer of ankle Peripheral arterial disease Skin ulcer of ankle, limited to breakdown of skin Skin ulcer of toe 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 Vision abnormalities Surgical History Surgical History History of thyroidectomy Family History Family History Mother Diabetes mellitus Brain aneurysm Father Heart disease Social History Social History Alcohol intake: current Substance use: never Substance use type: does not use Additional living arrangements comments: SPOUSE Gender identity (if verbalized by the patient): Male Spiritual care concerns: No Meds Home Medications and Allergies Home Medications Medication Instructions Recorded Confirmed Type metoprolol succinate 50 mg 50 mg PO QAM 08/06/19 05/17/22 History tablet,extended release 24 hr chlorthalidone 25 mg tablet 25 mg PO QAM 05/11/21 05/17/22 History levothyroxine 137 mcg tablet 137 mcg PO QAM 05/11/21 05/17/22 History (Synthroid) losartan 100 mg tablet 100 mg PO QAM 05/11/21 05/17/22 History pravastatin 40 mg tablet 40 mg PO DAILY 05/11/21 05/17/22 History apixaban 5 mg tablet (Eliquis) 5 mg PO BID 06/26/21 05/17/22 History cholecalciferol (vitamin D3) 25 50 mcg PO DAILY 06/26/21 05/17/22 History mcg (1,000 unit) tablet (Vitamin D3) mgjhfxqt-gpknymrv-eriss acid 400 1 tablet PO DAILY 06/26/21 05/17/22 History mcg-vit K 20 mcg-lycop 300 mcg tablet (One-A-Day Men's Multivitamin) collagenase clostridium histo. 250 1 applic topical QAM #30 grams 06/29/21 05/17/22 Rx unit/gram topical ointment (Santyl) ciprofloxacin HCl 500 mg tablet 500 mg PO Q12HR #56 tabs 07/16/21 05/17/22 Rx clindamycin HCl 150 mg capsule 300 mg PO Q8HR #84 caps 07/16/21 05/17/22 Rx hydrocodone 7.5 mg-acetaminophen 1 tablet PO Q4-6H PRN Pain Rated 07/16/21 05/17/22 Rx 325 mg tablet 7-10 #30 tabs Allergies Allergy/AdvReac Type Severity Reaction Status Date / Time propoxyphene Allergy Intermediate Swelling Verified 05/17/22 09:09 Exam Const: General: healthy appearing; No in distress or confusion Orientation/consciousness: oriented to person, oriented to place, oriented to time and No confusion HENMT: Head: normal to inspection, normocephalic and atraumatic Eyes: Conjunctivae: conjunctivae normal Sclera: sclerae normal Neck: Neck: supple and nontender Resp: Effort & Inspection: normal respiratory effort and no audible wheezes Cardio: Rhythm: regular rhythm Skin: General skin exam: no rashes or lesions noted Neuro: General: oriented to person, oriented to place, oriented to time and No confusion Extrem: Right upper extremity: normal to inspection Left upper extremity: normal to inspection Right lower extremity: ankle Details: normal to inspecti
--- NOTE | 2022-05-28 09:09 | PM.IMHP ---
H&P: HPI History of Present Illness Date/Time: 05/28/22 09:09 Chief Complaint: Left hallux ulcer Narrative: patient returns to [facility] for re-evaluation of left foot. One-month history of ulcer on the plantar medial aspect of the distal hallux. Patient currently doing silver foam dressing changes and postoperative shoe. No changes or worsening noted in the interim. No new complaints. Review of Systems Review of Systems: All systems reviewed & are unremarkable except as noted in HPI and below Constitutional: Constitutional: Reports as per HPI and Reports no additional constitutional complaints Eyes: Eyes: Reports as per HPI and Reports no additional eye complaints ENT: Reports system reviewed and no additional complaints, except as documented and Reports as per HPI Cardiovascular: Cardiovascular: Reports as per HPI and Reports no additional cardiovascular complaints Respiratory: Respiratory: Reports as per HPI and Reports no additional respiratory complaints Gastrointestinal: Gastrointestinal: Reports as per HPI and Reports no additional gastrointestinal complaints Genitourinary: Genitourinary: Reports no additional male genitourinary complaints and Reports as per HPI Musculoskeletal: Musculoskeletal: Reports no additional musculoskeletal complaints, Reports as per HPI, Denies back pain and Reports arthralgias Integumentary/Breasts: Skin/Breast: Reports system reviewed and no additional complaints, except as docu and Reports as per HPI Neurologic: Denies confusion Psychiatric: Psychiatric: Denies confusion Endocrine: Endocrine: Reports no additional endocrine complaints and Reports as per HPI Hematologic/Lymphatic: Hematologic/Lymphatic: Reports no additional hematologic/lymphatic complaints and Reports as per HPI Allergic/Immunologic: Allergic/Immunologic: Reports no additional allergic/immunologic complaints and Reports as per HPI [facility] Past Medical History Medical History Adhesive capsulitis Arthritis Arthritis of left subtalar joint Back pain with history of spinal surgery Deep vein thrombosis of right lower extremity Degenerative joint disease, ankle, foot, toe DJD of shoulder DVT (deep venous thrombosis) Foot drop, left H/O malignant neoplasm of thyroid Hyperlipidemia Hypertension Hypothyroid Irregular heartbeat Left shoulder pain Lower extremity edema Lung nodule Neuropathic ulcer of ankle Peripheral arterial disease Skin ulcer of ankle, limited to breakdown of skin Skin ulcer of toe 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 Vision abnormalities Surgical History Surgical History History of thyroidectomy Family History Family History Mother Diabetes mellitus Brain aneurysm Father Heart disease Social History Social History Alcohol intake: current Substance use: never Substance use type: does not use Additional living arrangements comments: SPOUSE Gender identity (if verbalized by the patient): Male Spiritual care concerns: No Meds Home Medications and Allergies Home Medications Medication Instructions Recorded Confirmed Type metoprolol succinate 50 mg 50 mg PO QAM 08/06/19 05/17/22 History tablet,extended release 24 hr chlorthalidone 25 mg tablet 25 mg PO QAM 05/11/21 05/17/22 History levothyroxine 137 mcg tablet 137 mcg PO QAM 05/11/21 05/17/22 History (Synthroid) losartan 100 mg tablet 100 mg PO QAM 05/11/21 05/17/22 History pravastatin 40 mg tablet 40 mg PO DAILY 05/11/21 05/17/22 History apixaban 5 mg tablet (Eliquis) 5 mg PO BID 06/26/21 05/17/22 History cholecalciferol (vitamin D3) 25 50 mcg PO DAILY 06/26/21 05/17/22 History mcg (1,000 unit) tablet (Vitamin D3) [id number]-sscev
--- NOTE | 2022-06-07 08:34 | PM.IMHP ---
H&P: [facility] History of Present Illness Date/Time: 06/07/22 08:34 <EDELMIRA BainP - Last Filed: 06/07/22 08:40> Chief Complaint: Left hallux ulcer <EDELMIRA BainP - Last Filed: 06/07/22 08:40> Narrative: Patient returns to [facility] for re-evaluation of left foot. One-month history of ulcer on the plantar medial aspect of the distal hallux. Patient currently doing silver gel, foam dressing changes and postoperative shoe. No changes or worsening noted in the interim. No new complaints. <Marcela Núñez SENIOR RESEARCH SCIENTIST - Last Filed: 06/07/22 08:40> Review of Systems Review of Systems: All systems reviewed & are unremarkable except as noted in HPI and below <Marcela Núñez [facility] - Last Filed: 06/07/22 08:40> Constitutional: Constitutional: Reports as per HPI and Reports no additional constitutional complaints <Marcela Núñez [facility] - Last Filed: 06/07/22 08:40> Eyes: Eyes: Reports as per HPI and Reports no additional eye complaints <Marcela Núñez [facility] - Last Filed: 06/07/22 08:40> ENT: Reports system reviewed and no additional complaints, except as documented and Reports as per HPI <Marcela Núñez [facility] - Last Filed: 06/07/22 08:40> Cardiovascular: Cardiovascular: Reports as per HPI and Reports no additional cardiovascular complaints <Marcela Núñez [facility] - Last Filed: 06/07/22 08:40> Respiratory: Respiratory: Reports as per HPI and Reports no additional respiratory complaints <Marcela Núñez [facility] - Last Filed: 06/07/22 08:40> Gastrointestinal: Gastrointestinal: Reports as per HPI and Reports no additional gastrointestinal complaints <Marceal Núñez [facility] - Last Filed: 06/07/22 08:40> Genitourinary: Genitourinary: Reports no additional male genitourinary complaints and Reports as per HPI <Marcela Núñez [facility] - Last Filed: 06/07/22 08:40> Musculoskeletal: Musculoskeletal: Reports no additional musculoskeletal complaints, Reports as per HPI, Denies back pain and Reports arthralgias <KENNETH Bain - Last Filed: 06/07/22 08:40> Integumentary/Breasts: Skin/Breast: Reports system reviewed and no additional complaints, except as docu and Reports as per HPI <KENNETH Bain - Last Filed: 06/07/22 08:40> Neurologic: Denies confusion <KENNETH Bain - Last Filed: 06/07/22 08:40> Psychiatric: Psychiatric: Denies confusion <KENNETH Bain - Last Filed: 06/07/22 08:40> Endocrine: Endocrine: Reports no additional endocrine complaints and Reports as per HPI <KENNETH Bain - Last Filed: 06/07/22 08:40> Hematologic/Lymphatic: Hematologic/Lymphatic: Reports no additional hematologic/lymphatic complaints and Reports as per HPI <KENNETH Bain - Last Filed: 06/07/22 08:40> Allergic/Immunologic: Allergic/Immunologic: Reports no additional allergic/immunologic complaints and Reports as per HPI <KENNETH Bain - Last Filed: 06/07/22 08:40> [facility] Past Medical History Medical History: Medical History Adhesive capsulitis Arthritis Arthritis of left subtalar joint Back pain with history of spinal surgery Deep vein thrombosis of right lower extremity Degenerative joint disease, ankle, foot, toe DJD of shoulder DVT (deep venous thrombosis) Foot drop, left H/O malignant neoplasm of thyroid Hyperlipidemia Hypertension Hypothyroid Irregular heartbeat Left shoulder pain Lower extremity edema Lung nodule Neuropathic ulcer of ankle Peripheral arterial disease Skin ulcer of ankle, limited to breakdown of skin Skin ulcer of toe 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
--- NOTE | 2022-06-14 08:36 | PM.IMHP ---
H&P: HPI History of Present Illness Date/Time: 06/14/22 08:34 Chief Complaint: Left hallux ulcer Narrative: Patient returns to [facility] for re-evaluation of left foot. 1.5mo history of ulcer on the plantar medial aspect of the distal hallux. Patient currently doing silver gel, foam dressing changes and postoperative shoe. No changes or worsening noted in the interim. No new complaints. Review of Systems Review of Systems: All systems reviewed & are unremarkable except as noted in HPI and below Constitutional: Constitutional: Reports as per HPI and Reports no additional constitutional complaints Eyes: Eyes: Reports as per HPI and Reports no additional eye complaints ENT: Reports system reviewed and no additional complaints, except as documented and Reports as per HPI Cardiovascular: Cardiovascular: Reports as per HPI and Reports no additional cardiovascular complaints Respiratory: Respiratory: Reports as per HPI and Reports no additional respiratory complaints Gastrointestinal: Gastrointestinal: Reports as per HPI and Reports no additional gastrointestinal complaints Genitourinary: Genitourinary: Reports no additional male genitourinary complaints and Reports as per HPI Musculoskeletal: Musculoskeletal: Reports no additional musculoskeletal complaints, Reports as per HPI, Denies back pain and Reports arthralgias Integumentary/Breasts: Skin/Breast: Reports system reviewed and no additional complaints, except as docu and Reports as per HPI Neurologic: Denies confusion Psychiatric: Psychiatric: Denies confusion Endocrine: Endocrine: Reports no additional endocrine complaints and Reports as per HPI Hematologic/Lymphatic: Hematologic/Lymphatic: Reports no additional hematologic/lymphatic complaints and Reports as per HPI Allergic/Immunologic: Allergic/Immunologic: Reports no additional allergic/immunologic complaints and Reports as per HPI [facility] Past Medical History Medical History Adhesive capsulitis Arthritis Arthritis of left subtalar joint Back pain with history of spinal surgery Deep vein thrombosis of right lower extremity Degenerative joint disease, ankle, foot, toe DJD of shoulder DVT (deep venous thrombosis) Foot drop, left H/O malignant neoplasm of thyroid Hyperlipidemia Hypertension Hypothyroid Irregular heartbeat Left shoulder pain Lower extremity edema Lung nodule Neuropathic ulcer of ankle Peripheral arterial disease Skin ulcer of ankle, limited to breakdown of skin Skin ulcer of toe 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 Vision abnormalities Surgical History Surgical History History of thyroidectomy Family History Family History Mother Diabetes mellitus Brain aneurysm Father Heart disease Social History Social History Alcohol intake: current Substance use: never Substance use type: does not use Additional living arrangements comments: SPOUSE Gender identity (if verbalized by the patient): Male Spiritual care concerns: No Meds Home Medications and Allergies Home Medications Medication Instructions Recorded Confirmed Type metoprolol succinate 50 mg 50 mg PO QAM 08/06/19 05/17/22 History tablet,extended release 24 hr chlorthalidone 25 mg tablet 25 mg PO QAM 05/11/21 05/17/22 History levothyroxine 137 mcg tablet 137 mcg PO QAM 05/11/21 05/17/22 History (Synthroid) losartan 100 mg tablet 100 mg PO QAM 05/11/21 05/17/22 History pravastatin 40 mg tablet 40 mg PO DAILY 05/11/21 05/17/22 History apixaban 5 mg tablet (Eliquis) 5 mg PO BID 06/26/21 05/17/22 History cholecalciferol (vitamin D3) 25 50 mcg PO DAILY 06/26/21 05/17/22 History mcg (1,000 unit) tablet (Vitamin D3) [id number] a
--- NOTE | 2022-06-28 09:04 | PM.IMHP ---
H&P: HPI History of Present Illness Date/Time: 06/28/22 09:04 Chief Complaint: Left hallux ulcer Narrative: Patient returns to [facility] for re-evaluation of left foot. 2 month history of ulcer on the plantar medial aspect of the distal hallux. Patient currently doing silver gel, foam dressing changes and postoperative shoe. No changes or worsening noted in the interim. Some nerve pain at the distal hallux. No new complaints. Review of Systems Review of Systems: All systems reviewed & are unremarkable except as noted in HPI and below Constitutional: Constitutional: Reports as per HPI and Reports no additional constitutional complaints Eyes: Eyes: Reports as per HPI and Reports no additional eye complaints ENT: Reports system reviewed and no additional complaints, except as documented and Reports as per HPI Cardiovascular: Cardiovascular: Reports as per HPI and Reports no additional cardiovascular complaints Respiratory: Respiratory: Reports as per HPI and Reports no additional respiratory complaints Gastrointestinal: Gastrointestinal: Reports as per HPI and Reports no additional gastrointestinal complaints Genitourinary: Genitourinary: Reports no additional male genitourinary complaints and Reports as per HPI Musculoskeletal: Musculoskeletal: Reports no additional musculoskeletal complaints, Reports as per HPI, Denies back pain and Reports arthralgias Integumentary/Breasts: Skin/Breast: Reports system reviewed and no additional complaints, except as docu and Reports as per HPI Neurologic: Denies confusion Psychiatric: Psychiatric: Denies confusion Endocrine: Endocrine: Reports no additional endocrine complaints and Reports as per HPI Hematologic/Lymphatic: Hematologic/Lymphatic: Reports no additional hematologic/lymphatic complaints and Reports as per HPI Allergic/Immunologic: Allergic/Immunologic: Reports no additional allergic/immunologic complaints and Reports as per HPI [facility] Past Medical History Medical History Adhesive capsulitis Arthritis Arthritis of left subtalar joint Back pain with history of spinal surgery Deep vein thrombosis of right lower extremity Degenerative joint disease, ankle, foot, toe DJD of shoulder DVT (deep venous thrombosis) Foot drop, left H/O malignant neoplasm of thyroid Hyperlipidemia Hypertension Hypothyroid Irregular heartbeat Left shoulder pain Lower extremity edema Lung nodule Neuropathic ulcer of ankle Peripheral arterial disease Skin ulcer of ankle, limited to breakdown of skin Skin ulcer of toe 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 Vision abnormalities Surgical History Surgical History History of thyroidectomy Family History Family History Mother Diabetes mellitus Brain aneurysm Father Heart disease Social History Social History Alcohol intake: current Substance use: never Substance use type: does not use Additional living arrangements comments: SPOUSE Gender identity (if verbalized by the patient): Male Spiritual care concerns: No Meds Home Medications and Allergies Home Medications Medication Instructions Recorded Confirmed Type metoprolol succinate 50 mg 50 mg PO QAM 08/06/19 05/17/22 History tablet,extended release 24 hr chlorthalidone 25 mg tablet 25 mg PO QAM 05/11/21 05/17/22 History levothyroxine 137 mcg tablet 137 mcg PO QAM 05/11/21 05/17/22 History (Synthroid) losartan 100 mg tablet 100 mg PO QAM 05/11/21 05/17/22 History pravastatin 40 mg tablet 40 mg PO DAILY 05/11/21 05/17/22 History apixaban 5 mg tablet (Eliquis) 5 mg PO BID 06/26/21 05/17/22 History cholecalciferol (vitamin D3) 25 50 mcg PO DAILY 06/26/21 05/17/22 History mcg (1,000 unit) tablet (Vitamin
--- NOTE | 2022-07-05 09:24 | PM.IMHP ---
H&P: HPI History of Present Illness Date/Time: 07/05/22 09:24 Chief Complaint: Left hallux ulcer Narrative: Patient returns to [facility] for re-evaluation of left foot. 2 month history of ulcer on the plantar medial aspect of the distal hallux. Patient currently doing silver gel, foam dressing changes and postoperative shoe. No changes or worsening noted in the interim. Some nerve pain at the distal hallux. No new complaints. Review of Systems Review of Systems: All systems reviewed & are unremarkable except as noted in HPI and below Constitutional: Constitutional: Reports as per HPI and Reports no additional constitutional complaints Eyes: Eyes: Reports as per HPI and Reports no additional eye complaints ENT: Reports system reviewed and no additional complaints, except as documented and Reports as per HPI Cardiovascular: Cardiovascular: Reports as per HPI and Reports no additional cardiovascular complaints Respiratory: Respiratory: Reports as per HPI and Reports no additional respiratory complaints Gastrointestinal: Gastrointestinal: Reports as per HPI and Reports no additional gastrointestinal complaints Genitourinary: Genitourinary: Reports no additional male genitourinary complaints and Reports as per HPI Musculoskeletal: Musculoskeletal: Reports no additional musculoskeletal complaints, Reports as per HPI, Denies back pain and Reports arthralgias Integumentary/Breasts: Skin/Breast: Reports system reviewed and no additional complaints, except as docu and Reports as per HPI Neurologic: Denies confusion Psychiatric: Psychiatric: Denies confusion Endocrine: Endocrine: Reports no additional endocrine complaints and Reports as per HPI Hematologic/Lymphatic: Hematologic/Lymphatic: Reports no additional hematologic/lymphatic complaints and Reports as per HPI Allergic/Immunologic: Allergic/Immunologic: Reports no additional allergic/immunologic complaints and Reports as per HPI [facility] Past Medical History Medical History Adhesive capsulitis Arthritis Arthritis of left subtalar joint Back pain with history of spinal surgery Deep vein thrombosis of right lower extremity Degenerative joint disease, ankle, foot, toe DJD of shoulder DVT (deep venous thrombosis) Foot drop, left H/O malignant neoplasm of thyroid Hyperlipidemia Hypertension Hypothyroid Irregular heartbeat Left shoulder pain Lower extremity edema Lung nodule Neuropathic ulcer of ankle Peripheral arterial disease Skin ulcer of ankle, limited to breakdown of skin Skin ulcer of toe 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 Vision abnormalities Surgical History Surgical History History of thyroidectomy Family History Family History Mother Diabetes mellitus Brain aneurysm Father Heart disease Social History Social History Alcohol intake: current Substance use: never Substance use type: does not use Additional living arrangements comments: SPOUSE Gender identity (if verbalized by the patient): Male Spiritual care concerns: No Meds Home Medications and Allergies Home Medications Medication Instructions Recorded Confirmed Type metoprolol succinate 50 mg 50 mg PO QAM 08/06/19 05/17/22 History tablet,extended release 24 hr chlorthalidone 25 mg tablet 25 mg PO QAM 05/11/21 05/17/22 History levothyroxine 137 mcg tablet 137 mcg PO QAM 05/11/21 05/17/22 History (Synthroid) losartan 100 mg tablet 100 mg PO QAM 05/11/21 05/17/22 History pravastatin 40 mg tablet 40 mg PO DAILY 05/11/21 05/17/22 History apixaban 5 mg tablet (Eliquis) 5 mg PO BID 06/26/21 05/17/22 History cholecalciferol (vitamin D3) 25 50 mcg PO DAILY 06/26/21 05/17/22 History mcg (1,000 unit) tablet (Vitamin
--- NOTE | 2022-07-19 08:40 | PM.IMHP ---
H&P: HPI History of Present Illness Date/Time: 07/19/22 08:40 Chief Complaint: Left hallux ulcer Narrative: Patient returns to [facility] for re-evaluation of left foot. 2 month history of ulcer on the plantar medial aspect of the distal hallux. Patient currently doing silver gel, foam dressing changes and postoperative shoe. No changes or worsening noted in the interim. Some nerve pain at the distal hallux. No new complaints. Review of Systems Review of Systems: All systems reviewed & are unremarkable except as noted in HPI and below Constitutional: Constitutional: Reports as per HPI and Reports no additional constitutional complaints Eyes: Eyes: Reports as per HPI and Reports no additional eye complaints ENT: Reports system reviewed and no additional complaints, except as documented and Reports as per HPI Cardiovascular: Cardiovascular: Reports as per HPI and Reports no additional cardiovascular complaints Respiratory: Respiratory: Reports as per HPI and Reports no additional respiratory complaints Gastrointestinal: Gastrointestinal: Reports as per HPI and Reports no additional gastrointestinal complaints Genitourinary: Genitourinary: Reports no additional male genitourinary complaints and Reports as per HPI Musculoskeletal: Musculoskeletal: Reports no additional musculoskeletal complaints, Reports as per HPI, Denies back pain and Reports arthralgias Integumentary/Breasts: Skin/Breast: Reports system reviewed and no additional complaints, except as docu and Reports as per HPI Neurologic: Denies confusion Psychiatric: Psychiatric: Denies confusion Endocrine: Endocrine: Reports no additional endocrine complaints and Reports as per HPI Hematologic/Lymphatic: Hematologic/Lymphatic: Reports no additional hematologic/lymphatic complaints and Reports as per HPI Allergic/Immunologic: Allergic/Immunologic: Reports no additional allergic/immunologic complaints and Reports as per HPI [facility] Past Medical History Medical History Adhesive capsulitis Arthritis Arthritis of left subtalar joint Back pain with history of spinal surgery Deep vein thrombosis of right lower extremity Degenerative joint disease, ankle, foot, toe DJD of shoulder DVT (deep venous thrombosis) Foot drop, left H/O malignant neoplasm of thyroid Hyperlipidemia Hypertension Hypothyroid Irregular heartbeat Left shoulder pain Lower extremity edema Lung nodule Neuropathic ulcer of ankle Peripheral arterial disease Skin ulcer of ankle, limited to breakdown of skin Skin ulcer of toe 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 Vision abnormalities Surgical History Surgical History History of thyroidectomy Family History Family History Mother Diabetes mellitus Brain aneurysm Father Heart disease Social History Social History Alcohol intake: current Substance use: never Substance use type: does not use Additional living arrangements comments: SPOUSE Gender identity (if verbalized by the patient): Male Spiritual care concerns: No Meds Home Medications and Allergies Home Medications Medication Instructions Recorded Confirmed Type metoprolol succinate 50 mg 50 mg PO QAM 08/06/19 05/17/22 History tablet,extended release 24 hr chlorthalidone 25 mg tablet 25 mg PO QAM 05/11/21 05/17/22 History levothyroxine 137 mcg tablet 137 mcg PO QAM 05/11/21 05/17/22 History (Synthroid) losartan 100 mg tablet 100 mg PO QAM 05/11/21 05/17/22 History pravastatin 40 mg tablet 40 mg PO DAILY 05/11/21 05/17/22 History apixaban 5 mg tablet (Eliquis) 5 mg PO BID 06/26/21 05/17/22 History cholecalciferol (vitamin D3) 25 50 mcg PO DAILY 06/26/21 05/17/22 History mcg (1,000 unit) tablet (Vitamin
== END 2022-08-15 23:59 | disposition home or self-care (01) ==
LOC: ANHWOC 07:30
PROVIDERS: Visit Provider Nurse Practitioner Family
DX: L97.521 Non-pressure chronic ulcer of other part of left foot limited to breakdown of skin (principal); L97.309 Non-pressure chronic ulcer of unspecified ankle with unspecified severity; M19.079 Primary osteoarthritis, unspecified ankle and foot; M21.372 Foot drop, left foot
CPT/HCPCS: 11042; 99212; 99213; A9270; G0463

== ENCOUNTER 2022-10-15 13:56 | Outpatient (CLI) | payer MEDICARE, SELFPAY ==
[2022-10-15 14:36] LABS: Anion Gap 6 mmol/L (8-16); Blood Urea Nitrogen 26 mg/dL (7-18); Carbon Dioxide 30 mmol/L (21-32); Chloride 102 mmol/L (98-108); Estimated Glomerular Filt Rate 48; Glucose 111 mg/dL (70-99); Osmolality Calculated 291 mOsm/kg (285-295); Potassium 4.1 mmol/L (3.5-5.1); Sodium 138 mmol/L (136-145)
== END 2022-10-15 13:57 | disposition home or self-care (01) ==
LOC: CHSLAB 14:01
PROVIDERS: Visit Provider Anesthesiology
DX: Z01.818 Encounter for other preprocedural examination (principal); Z79.899 Other long term (current) drug therapy
CPT/HCPCS: 36415; 80048

== ENCOUNTER 2022-10-21 00:12 | Day surgery (SDC) | payer MEDICARE, OTHER, SELFPAY ==
[2022-10-15 12:58] VITALS: BMI 32.8
--- NOTE | 2022-10-15 13:06 | PC.NURSE ---
Report to the Outpatient Waiting Room, entrance under the green pavilion located off [facility], at time ___0600____ on date __10/21/22 . Planned Procedure Time: _0730__. Time changes happen often and if your time is changed the preop area will call you the afternoon before. - You and your visitor will be asked to self-screen and do not enter if you have any COVID symptoms. - Only one visitor is requested with a max of two and NO children visitors are allowed at this time. - The patient visitor may be requested to leave or wait in car when not with patient due to distancing restrictions. - A mask is REQUIRED within the hospital. Patients may have clear liquids (water, carbonated beverages, clear teas, apple juice) until 3 hours prior to surgery (0430 AM) with a maximum of 20 ounces. - No food from midnight until time of surgery - Infants may have breast milk until 4 hours before surgery, formula 6 hours prior to surgery. - Children will be allowed to drink immediately following surgery. If applicable, please bring a bottle or sippy cup to assist with drinking. Juice, water, soda, and popsicles are readily available. For infants on formula, please bring formula the day of surgery. Pacifiers are allowed. Take the following medications with a SIP of water the morning of surgery: _LEVOTHYROXINE__ Medications to discontinue per physician _STATES ELIQUIS 3 DAYS PRIOR TO SURGERY PER DR. DELEON, PER ANESTHESIA MULTIVITAMIN 3 DAYS PRIOR TO SURGERY___ Date to take last dose 10/17/22 Please no make-up, nail malaysian, hairspray, perfume, deodorant, or body powder the day of surgery. No jewelry (including any body piercings) or valuables the day of surgery, leave them at home. Please take a shower or bath the night before, or the morning of, surgery with an antibacterial soap. Wear comfortable, loose fitting clothing. Children are encouraged to wear pajamas. - Jewelry must be removed prior to entering the operating room. Rings and piercings that are not removed may be cut off. - The hospital will not accept responsibility for valuables. - Please leave all valuables, including medications, at home the day of surgery. If you are going home after surgery, a licensed local company intermodal truck driver must drive you home. - NO public transportation without another adult if you receive anesthesia. - We recommend that an adult stay with you for 24 hours following discharge. - We also recommend that you do not drive, make important decision, drink alcoholic beverages, or take any drugs that were not prescribed by your health care provider for at least 24 hours after your discharge time. For Pediatric surgeries, we recommend two adults accompany the child home. Follow any additional instructions given to you from your surgeon. If you or anyone in your household have experienced Covid symptoms in the past week, please notify your surgeon or the nurse liaison at the phone number below for possible testing. Telephone instructions given to ____PATIENT and asked if any additional questions and then verbalized understanding. Patient advised to call surgeon office or pre surgery nurse liaison [phone] if any additional questions.
--- NOTE | 2022-10-18 11:00 | PM.IMHP ---
H&P: HPI History of Present Illness Date/Time: 10/18/22 11:00 Chief Complaint: Left hallux ulcer with deformity Narrative: 72-year-old man with peripheral neuropathy and left foot and ankle deformity. Persistent ulceration at hallux with deformity and malalignment of the hallux. Presents for operative treatment. Review of Systems Review of Systems: All systems reviewed & are unremarkable except as noted in HPI and below Constitutional: Constitutional: Reports as per HPI and Reports no additional constitutional complaints Eyes: Eyes: Reports as per HPI and Reports no additional eye complaints ENT: Reports system reviewed and no additional complaints, except as documented and Reports as per HPI Cardiovascular: Cardiovascular: Reports as per HPI and Reports no additional cardiovascular complaints Respiratory: Respiratory: Reports as per HPI and Reports no additional respiratory complaints Gastrointestinal: Gastrointestinal: Reports as per HPI and Reports no additional gastrointestinal complaints Genitourinary: Genitourinary: Reports no additional male genitourinary complaints and Reports as per HPI Musculoskeletal: Musculoskeletal: Reports no additional musculoskeletal complaints, Reports as per HPI, Denies back pain and Reports arthralgias Integumentary/Breasts: Skin/Breast: Reports system reviewed and no additional complaints, except as docu and Reports as per HPI Neurologic: Denies confusion Psychiatric: Psychiatric: Denies confusion Endocrine: Endocrine: Reports no additional endocrine complaints and Reports as per HPI Hematologic/Lymphatic: Hematologic/Lymphatic: Reports no additional hematologic/lymphatic complaints and Reports as per HPI Allergic/Immunologic: Allergic/Immunologic: Reports no additional allergic/immunologic complaints and Reports as per HPI PMFSH Past Medical History Medical History (Updated 10/18/22 @ 11:03 by Devonte Powell MD) 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 capsulitis Arthritis Arthritis of left subtalar joint Back pain with history of spinal surgery Deep vein thrombosis of right lower extremity Degenerative joint disease, ankle, foot, toe DJD of shoulder DVT (deep venous thrombosis) Foot drop, left H/O malignant neoplasm of thyroid Hyperlipidemia Hypertension Hypothyroid Irregular heartbeat Left shoulder pain Lower extremity edema Lung nodule Neuropathic ulcer of ankle Peripheral arterial disease Skin ulcer of ankle, limited to breakdown of skin Skin ulcer of toe 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 Vision abnormalities Surgical History Surgical History History of thyroidectomy Family History Family History Mother Diabetes mellitus Brain aneurysm Father Heart disease Social History Social History Smoking status: Never smoker Second hand tobacco smoke exposure: No Alcohol intake: current Alcohol use details: COUPLE DRINKS/6 MONTHS Substance use: never Substance use type: does not use Additional living arrangements comments: SPOUSE Gender identity (if verbalized by the patient): Male Spiritual care concerns: No Meds Home Medications and Allergies Home Medications Medication Instructions Recorded Confirmed Type metoprolol succinate 50 mg 50 mg PO QAM 08/06/19 10/15/22 History tablet,extended release 24 hr chlorthalidone 25 mg tablet 25 mg PO QAM 05/11/21 10/15/22 History levothyroxine 137 mcg tablet 137 mcg PO QAM 05/11/21 10/15/22 History (Synthroid) pravastatin 40 mg tablet 40 mg PO DAILY 05/11/21 10/15/22 History apixaban 5 mg tablet (Eliquis) 5 mg PO BID 06/26/21 10/15/22 History cholecalciferol (vitamin D3) 25 50 mcg PO DAILY 06/26/21 10/15/22 History mcg (1,000 unit) tablet (Vitamin D3) yopdhcdj-winnhqpq-ujqoq acid 400 1 table
--- NOTE | ~2022-10-21 | XR_ITS ---
EXAMINATION: XR surgery orthopedic DATE: 10/21/2022 08:55 INDICATION: Left hallux valgus correction TECHNIQUE: 3 fluoroscopic images of the left forefoot were obtained during procedure performed by Dr. Powell. Radiologist was not present for the imaging or procedure. The amount of fluoroscopy time us ed during this procedure was 0.5 minutes. COMPARISON: 05/17/2022 FINDINGS: Interval reduction to essentially anatomic alignment of the prior valgus angulation at the first inte rphalangeal joint and first interphalangeal arthrodesis with medial staple fixation. Again seen is a chronic arthrodesis at the second proximal interphalangeal joint. Moderate polyarticular osteoarthrit is at the first metatarsophalangeal and multiple interphalangeal joints. No fracture. Again seen are a few tiny metallic foreign bodies in the soft tissues at the forefoot. IMPRESSION: 1. Left first interphalangeal joint arthrodesis negative for postoperative purposes with staple fixat ion and in near anatomic alignment. Reviewed, dictated and finalized at location A. S REPRESENTATIVE [employer] IMPRESSION: 1. Left first interphalangeal joint arthrodesis negative for postoperative purp oses with staple fixation and in near anatomic alignment.
--- NOTE | 2022-10-21 06:06 | ECG_ITS ---
Measurements Intervals [place] Rate: 63 P: 73 OR: 260 QRS: 4 QRSD: 106 T: 11 QT: 394 QTc: 406 Interpretive Statements SINUS RHYTHM WITH FIRST DEGREE AV BLOCK ATRIAL PREMATURE COMPLEX NONSPECIFIC T-WAVE ABNORMALITY- INFERIOR LEADS BORDERLINE ECG NO PREVIOUS ECG AVAILABLE FOR COMPARISON Electronically Signed On 10-21-2022 7:48:49 [employer] by Nate Lambert D.O.
[2022-10-21] MEDS: ACETAMINOPHEN 500 MG TABLET 1000 MG PO (06:34)
--- NOTE | 2022-10-21 06:50 | WPDANESEPPF ---
Anes - Initial Pre Proc Eval Procedure: Operation Date: 10/21/22 07:30 Proposed Procedures p Correction of Left Hallux Valgus with Debridement Ulcer with Application Graft - Devonte Powell MD Date/Time: 10/21/22 06:50 Surgeon: Devonte Powell MD Pre Op Diagnosis: Left Hallux Ulcer, Left Hallux Valgus Patient Data Age: 72 Gender: M Height: 1.8 m Weight: 106.81 kg Allergies Allergy/AdvReac Type Severity Reaction Status Date / Time propoxyphene Allergy Intermediate Swelling Verified 10/21/22 06:23 Home Medications Medication Instructions Recorded Confirmed Type metoprolol succinate 50 mg 50 mg PO QAM 08/06/19 10/21/22 History tablet,extended release 24 hr chlorthalidone 25 mg tablet 25 mg PO QAM 05/11/21 10/21/22 History levothyroxine 137 mcg tablet 137 mcg PO QAM 05/11/21 10/21/22 History (Synthroid) pravastatin 40 mg tablet 40 mg PO DAILY 05/11/21 10/21/22 History apixaban 5 mg tablet (Eliquis) 5 mg PO BID 06/26/21 10/21/22 History cholecalciferol (vitamin D3) 25 50 mcg PO DAILY 06/26/21 10/21/22 History mcg (1,000 unit) tablet (Vitamin D3) vqvlfsul-cebolstj-bucna acid 400 1 tablet PO DAILY 06/26/21 10/21/22 History mcg-vit K 20 mcg-lycop 300 mcg tablet (One-A-Day Men's Multivitamin) gabapentin 100 mg capsule 100 mg PO QHS #30 caps 07/05/22 10/21/22 Rx losartan 50 mg tablet 50 mg QAM 10/15/22 10/21/22 History spironolactone 25 mg tablet 25 mg QAM 10/15/22 10/21/22 History Patient hx anesthesia problems: none Family hx anesthesia problems: none Results Review: All pre-operative results and documents have been reviewed as part of the pre-operative evaluation. FOR[facility], [facility] Past Medical History Medical History 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 capsulitis Arthritis Arthritis of left subtalar joint Back pain with history of spinal surgery Deep vein thrombosis of right lower extremity Degenerative joint disease, ankle, foot, toe DJD of shoulder DVT (deep venous thrombosis) Foot drop, left H/O malignant neoplasm of thyroid Hyperlipidemia Hypertension Hypothyroid Irregular heartbeat Left shoulder pain Lower extremity edema Lung nodule Neuropathic ulcer of ankle Peripheral arterial disease Skin ulcer of ankle, limited to breakdown of skin Skin ulcer of toe 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 Vision abnormalities Surgical History Surgical History History of thyroidectomy Family History Family History Mother Diabetes mellitus Brain aneurysm Father Heart disease Social History Social History Smoking status: Never smoker Second hand tobacco smoke exposure: No Alcohol intake: current Alcohol use details: COUPLE DRINKS/6 MONTHS Substance use: never Substance use type: does not use Living arrangements: with family Additional living arrangements comments: SPOUSE Gender identity (if verbalized by the patient): Male Spiritual care concerns: No Anes - Eval Final PreProcedure Day of Procedure 10/21/22 06:50 Patient weight: obese Heart: regular rate and rhythm Lungs: clear to auscultation Airway: Mallampati scale class II Neurological: alert and oriented Last oral intake: >/= 8 hours ASA classification: III Emergent: no Anesthesia type and monitoring: general LMA and standard monitoring Results Review: All pre-operative results and documents have been reviewed as part of the pre-operative evaluation. Informed Consent: The patient's anesthetic plan and its attendant risks and benefits were discussed with the patient/family/POA. Questions were solicited and answers provided to the satisfaction of the patient/family/POA.
[2022-10-21] MEDS: LACTATED RINGERS 1,000 ML 30 ML IV CONT (06:58)
[2022-10-21] MEDS: KETOROLAC 15 MG/ML VIAL (*BKC) IV PUSH (06:59)
[2022-10-21 07:08] VITALS: BP 147/62; PULSE 72; RESP 16; TEMP 36.4; O2SAT 100
--- NOTE | 2022-10-21 07:10 | WPDHPUPDATE1 ---
History and Physical Update Update Date/Time: 10/21/22 07:10 History and Physical has been reviewed, including an updated exam of the patient. There are NO changes in the patient's condition. Plan left hallux valgus correction, debridement ulcer, application graft. Risks, benefits, and alternatives have been discussed and questions answered. Patient agrees to proceed with procedure.
[2022-10-21] MEDS: ceFAZolin 2 GM/D5W 50 ML 2 GM/50 ML BAG IVPB (07:32)
[2022-10-21] MEDS: BUPIVACAINE HCL 0.5% PF 30 ML VIAL INFILTRATE (08:07)
[2022-10-21 09:11] VITALS: BP 106/59; PULSE 85; RESP 14; TEMP 36.6; O2SAT 100
[2022-10-21 09:25] VITALS: BP 106/56; PULSE 76; RESP 16; O2SAT 100
--- NOTE | 2022-10-21 09:27 | P.OP_ITS ---
Procedure Note - Detailed Date of Procedure 10/21/22 Pre-op Diagnosis Left Hallux Ulcer, Left Hallux Valgus Post-op Diagnosis Same Procedure Performed Left hallux valgus correction with interphalangeal arthrodesis with application graft Surgeon Devonte Powell MD Holter Technician 1st physician office assistant Anesthesia General Indications 72-year-old male with peripheral neuropathy traumatic degenerative changes left foot and ankle. Chronic ulceration medial aspect of the hallux with hallux valgus deformity and dysfunction secondary to muscle imbalance. Presents for operative treatment. Patient risk for worsening ulceration, infection and loss of limb without correction. Description of Procedure Patient identified in the preoperative holding. Informed consent given. Operative extremity marked. Patient received intravenous antibiotics. Patient brought to the operating room where underwent general anesthetic by anesthesia team. Positioned supine on operating room table. Time-out performed confirming the patient, site of the surgery and the plan. Left foot prepped draped usual sterile surgical fashion using a ChloraPrep skin solution. Foot and ankle exsanguinated and calf tourniquet inflated to 225 mmHg. Local anesthetic with 0.5% Marcaine. Longitudinal incision made over the medial border of the distal hallux with a 15 blade knife. Hemostasis controlled electrocautery. Care taken to isolate and protect the sensory elements. Incision deepened through the fascia overlying interphalangeal joint. Joint released with a 15 blade knife dorsally plantarward. The joint was then prepared with a closing wedge type resection to correct both the hallux valgus deformity and the plantar flexion of the hallux that was noted preoperatively. Arthrodesis chosen due to the lack motor control of the toe secondary to neuropathy. Joint further prepared with osteotome and rongeur and feathered with K-wire. Thorough irrigation with saline. Previous medial ulceration noted and prepared with 15 blade knife. The amniotic tissue graft was then opened and prepared on the back table and applied to the ulcer and the arthrodesis site. Micro matrix powder was also prepared on the back table in applied to the arthrodesis site and the soft tissue. Joint then reduced and provisionally pinned. Image intensification used to confirm alignment. Fixation achieved with Arthrex abel. Two of these replaced with good fixation noted. Image intensification confirmed final position. Wound irrigated closed with 3-0 Monocryl interrupted suture. Skin repaired with 4-0 nylon running and interrupted suture. Tourniquet released. Good capillary refill noted in the toe. Sterile dressing applied. The patient was then woken from anesthesia, extubated and taken to the recovery room in stable condition. All sponge, needle, instrument counts were correct at the end of the case. Implants Arthrex Nitinol abel X 2. amnio excel tissue graft 3 x 3 cm. Micro matrix particulate matter 500 mg. Estimated Blood Loss -2.0 Tourniquet Time 60 Drains No Packing No Pathology None sent Complications None Condition Stable Disposition PACU [facility] Billing Surgery - Charge Forward: Surgery Billing ([id number], [id number])
--- NOTE | 2022-10-21 09:31 | SUR.PHASEI ---
0928: Simple mask removed.
[2022-10-21 09:40] VITALS: BP 119/58; PULSE 71; RESP 12; O2SAT 95
[2022-10-21 09:45] VITALS: BP 123/63; PULSE 68; RESP 16
[2022-10-21 10:15] VITALS: BP 126/64; PULSE 66; RESP 16
--- NOTE | 2022-10-21 10:27 | SUR.PHASEII ---
LARGE POST-OP SHOE ORDERED.
--- NOTE | 2022-10-21 10:51 | SUR.PHASEII ---
POST-OP SHOE SIZE LARGE PLACED.
== END 2022-10-21 10:52 | disposition home or self-care (01) ==
PROVIDERS: Visit Provider Orthopaedic Surgery
PROC: (CPT 28299; principal; 2022-10-21 07:30)
DX: M20.12 Hallux valgus (acquired), left foot (principal); L97.522 Non-pressure chronic ulcer of other part of left foot with fat layer exposed; M19.072 Primary osteoarthritis, left ankle and foot; M21.372 Foot drop, left foot; I10 Essential (primary) hypertension; E78.5 Hyperlipidemia, unspecified; E89.0 Postprocedural hypothyroidism; I73.9 Peripheral vascular disease, unspecified; Z86.718 Personal history of other venous thrombosis and embolism; Z79.01 Long term (current) use of anticoagulants
CPT/HCPCS: 15275; 28755; 93005; 99199; A9270; C1713; J0690; J1100; J1165; J1170; J1885; J2405; J2704; J3010; J7120; Q4118; Q4137

== ENCOUNTER 2022-10-28 08:08 | Outpatient (CLI) | payer MEDICARE, OTHER, SELFPAY ==
--- NOTE | ~2022-10-28 | XR_ITS ---
XR foot LT min 3V 10/28/2022 08:26 Indication: Follow-up recent surgery Procedure: 3 views left foot Comparison: 05/17/2022 Findings: There are multiple metallic fragments overlying the lower leg, foot and ankle, consistent w ith shrapnel. There are surgical changes at the first interphalangeal joint, suggesting hallux repair . Osteopenia. There is mild polyarticular osteoarthritis of the foot. There is moderate polyarticular osteoarthritis of the left ankle and midfoot. No acute fracture or traumatic malalignment. 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 2: Multiple metallic foreign bodies overlying the lower leg, ankle and foot, consistent with shrapnel . Reviewed, dictated and finalized at location A. 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 2: Multiple metallic foreign bodies overlying the lower leg, ankle and foot, co nsistent with shrapnel.
== END 2022-10-28 08:09 | disposition home or self-care (01) ==
LOC: CHSIMG 08:13
PROVIDERS: Visit Provider Orthopaedic Surgery
DX: M79.672 Pain in left foot (principal); M19.072 Primary osteoarthritis, left ankle and foot; Z98.890 Other specified postprocedural states; M79.5 Residual foreign body in soft tissue
CPT/HCPCS: 73630

== ENCOUNTER 2025-02-02 08:57 | Outpatient (RCR) | payer MEDICARE, OTHER, SELFPAY ==
--- NOTE | 2025-02-02 10:23 | OPREHPOC ---
Outpatient Therapy Plan of Care This is a Multidisciplinary Plan of Care that may contain components documented by all disciplines (PT, OT, and ST.) PT Problem 1 PT Problem #1 Knowledge Deficit PT Goal 1 Goal / Goal Update The patient will be independent in a home exercise program. Target Visit 3 PT Problem 2 PT Problem #2 Pain PT Goal 1 Goal / Goal Update The patient will report no greater than 2/10 right hip/buttock pain with walking without an AD. Target Visit 12 PT Problem 3 PT Problem #3 Impaired Functional Mobility PT Goal 1 Goal / Goal Update The patient will demonstrate 20% or less self perceived disability per the Back Index questionnaire. The patient will ambulate 1,200 feet during the 6 minute walk test without an AD to improve community ambulation. Target Visit 12 PT Problem 4 PT Problem #4 Impaired Strength PT Goal 1 Goal / Goal Update The patient will demonstrate bilateral hip extension strength of 3+/5 or greater to improve support to the pelvis for daily tasks and golf. The patient will demonstrate upper and lower abdominal strength of 4-/5 or greater to improve support to the spine for daily tasks and golf. Target Visit 12
--- NOTE | 2025-02-02 10:23 | PTOPEVAL1 ---
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 He reports the wound did not heal until last week so he did not start PT until now. He didn't have a lot of pain the first few weeks after surgery and then the pain in his right buttock and hip has slowly increased over the last 4 weeks. He is scheduled to have a MRI and CT scan on 02/04/25 to see if the tumor has grown back . He also notes increased pain in the right buttock today after riding in a golf cart and putting yesterday. He spent [address] [facility] after surgery. He is able to perform daily activities without difficulty. He is under a 20 lb lifting restriction currently. He lives with his . He has 4 steps from the entry to his kitchen. He is able to navigate stairs without difficulty. He used a cane after surgery and was able to not use it for a while until today with the increased pain in his buttock , he is using the cane. He notes pain in his buttock when he stands after prolonged sitting as well. Reported Pain Level Pain Score 4: Self Report Assessment PT Clinical Summary Lee Morris presents 14 weeks s/p lumbar spine tumor removal and fusion. He has complications with his wound healing delaying his referral to PT . He also has a history of thyroid cancer and he is undergoing additional testing to determine if his tumor has returned and if he will need radiation therapy. He has had a gradual return of right buttock and hip pain over the last 4 weeks that had gone away after surgery. He demonstrates tenderness in the right gluteals and hamstring origin, decreased and painful lumbar AROM, decreased core strength, decreased gluteal strength, impaired gait, and decreased functional mobility. He will benefit from skilled PT to address these limitations. Plan of Care Interventions Manual Therapy,Neuro Re-education,Patient/ Caregiver Education,Therapeutic Activities, Therapeutic Exercise PT Services Indicated Yes Treatment Frequency and 3 times a week for 12 visits Duration These treatments will address the objective and functional deficits as defined above. The patient will be advanced safely and appropriately in order for the patient to progress towards his/her prior level of function. Additional exercises will be introduced and as well as a comprehensive home exercise program upon discharge, if needed, ?to ensure carryover of functional gains achieved in the clinic. This treatment plan has been reviewed and agreement upon by the patient.
--- NOTE | 2025-02-16 14:45 | PCPTNOTE ---
02/16/25: Pt cancelled due to having a doctor's appointment. He is scheduled on 02/17/25. -Milagros Tompkins, PT
--- NOTE | 2025-03-04 10:29 | OPREHPOC ---
Outpatient Therapy Plan of Care This is a Multidisciplinary Plan of Care that may contain components documented by all disciplines (PT, OT, and ST.) PT Problem 1 PT Problem #1 Knowledge Deficit PT Goal 1 Goal / Goal Update The patient will be independent in a home exercise program. Target Visit 3 Progress Met PT Problem 2 PT Problem #2 Pain PT Goal 1 Goal / Goal Update The patient will report no greater than 2/10 right hip/buttock pain with walking without an AD. Target Visit 12 Progress Not Met PT Problem 3 PT Problem #3 Impaired Functional Mobility PT Goal 1 Goal / Goal Update The patient will demonstrate 20% or less self perceived disability per the Back Index questionnaire. The patient will ambulate 1,200 feet during the 6 minute walk test without an AD to improve community ambulation. Target Visit 12 Progress Not Met PT Problem 4 PT Problem #4 Impaired Strength PT Goal 1 Goal / Goal Update The patient will demonstrate bilateral hip extension strength of 3+/5 or greater to improve support to the pelvis for daily tasks and golf. - met The patient will demonstrate upper and lower abdominal strength of 4-/5 or greater to improve support to the spine for daily tasks and golf. - partially met Target Visit 12 Progress Partially Met
--- NOTE | 2025-03-04 10:29 | PTOPPROG ---
Assessment and note entered by Funmilayo Maddox, PT Evaluation Information Assessment Status Progress Diagnosis s/p lumbar fusion and tumor removal ICD-10 Condition Codes (PT) Pain in low back M54.50 Other ICD-10 Condition Codes ( D49.2 PT) Onset 10/27/24 Subjective Information Hakan reports his pain is 7/10 in the gluteal region today and he did not sleep well last night due to pain. He starts radiation on the and plans to ask the doctor if he should continue PT while undergoing treatment. His pain reaches 10/10 intensity at the most and 2/10 at the least. Assessment PT Clinical Summary Mr. Morris has attended 10 total skilled PT visits for low back and gluteal region pain. Since beginning PT he has made slight improvements in his hip extension and lower abdominal strength but his pain has continued to persist. He starts radiation treatment on the and will follow up with his doctor on if he should continue PT treatment. At this time he will benefit from continued skilled PT to continue improving strength to improve lumbar and hip stability. Plan of Care Interventions Gait Training,Neuro Re-education,Patient/Caregiver Education,Therapeutic Activities,Therapeutic Exercise PT Services Indicated Yes Treatment Frequency and Continue per original POC Duration These treatments will address the objective and functional deficits as defined above. The patient will be advanced safely and appropriately in order for the patient to progress towards his/her prior level of function. Additional exercises will be introduced and as well as a comprehensive home exercise program upon discharge, if needed, ?to ensure carryover of functional gains achieved in the clinic. This treatment plan has been reviewed and agreement upon by the patient.
--- NOTE | 2025-03-09 12:22 | PCPTNOTE ---
No call, no show. VM left for pt.
--- NOTE | 2025-03-25 13:45 | OPREHPOC ---
Outpatient Therapy Plan of Care This is a Multidisciplinary Plan of Care that may contain components documented by all disciplines (PT, OT, and ST.) PT Problem 1 PT Problem #1 Knowledge Deficit PT Goal 1 Goal / Goal Update The patient will be independent in a home exercise program. Target Visit 3 Progress Met PT Problem 2 PT Problem #2 Pain PT Goal 1 Goal / Goal Update The patient will report no greater than 2/10 right hip/buttock pain with walking without an AD. Target Visit 18 Progress Not Met PT Problem 3 PT Problem #3 Impaired Functional Mobility PT Goal 1 Goal / Goal Update The patient will demonstrate 20% or less self perceived disability per the Back Index questionnaire. The patient will ambulate 1,200 feet during the 6 minute walk test without an AD to improve community ambulation. Target Visit 18 Progress Not Met PT Problem 4 PT Problem #4 Impaired Strength PT Goal 1 Goal / Goal Update The patient will demonstrate bilateral hip extension strength of 3+/5 or greater to improve support to the pelvis for daily tasks and golf. - met The patient will demonstrate upper and lower abdominal strength of 4-/5 or greater to improve support to the spine for daily tasks and golf. - partially met Target Visit 18 Progress Partially Met
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
--- NOTE | 2025-05-24 08:55 | PCPTNOTE ---
Pt was last seen on 03/30/25 and has not returned. He is discharged from skilled PT. -Milagros Tompkins, PT
== END 2025-05-03 23:59 | disposition home or self-care (01) ==
LOC: CHSPT 08:57
DX: D49.2 Neoplasm of unspecified behavior of bone, soft tissue, and skin (principal)
CPT/HCPCS: 97110; 97112; 97140; 97150; 97161; 97530